=== PATIENT | female | born 1970 | race Caucasian/White ===

== ENCOUNTER 2020-08-13 16:20 | Inpatient (IN) ==
[2020-08-14] MEDS ORDERED: Ondansetron 4 MG/2 ML VIAL IVP PRN (00:56)
[2020-08-14] MEDS ORDERED: Naloxone 0.4 MG/ML INJ IVP PRN (00:56)
[2020-08-14] MEDS ORDERED: Melatonin 3 MG TABLET PO PRN (00:56)
[2020-08-14] MEDS ORDERED: D5% in Water 1,000 ML IVC PRN (01:02)
[2020-08-14] MEDS ORDERED: Dextrose Gel 15 GM/37.5 ML TUBE PO PRN ×2 (01:02)
[2020-08-14] MEDS ORDERED: *HR* Dextrose 50 % in Water (Vial) 50 ML VIAL IVP PRN (01:02)
[2020-08-14] MEDS: Acetaminophen 325 MG TABLET PO PRN (05:03)
[2020-08-14 05:40] LABS: Basophils # 0.1 K/mcL (0.0-0.2); Basophils % 0.7 %; Eosinophils # 0.2 K/mcL (0.0-0.6); Eosinophils % 3.1 %; Hematocrit 33.9 % (35.3-44.9); Immature Granulocytes % 0.1 % (0-4); Lymphocytes # 0.9 K/mcL (0.6-4.6); Lymphocytes % 12.9 %; Mean Corpuscular HGB Conc 29.5 g/dL (31.6-35.5); Mean Corpuscular Hemoglobin 29.6 pg (28.0-33.3); Mean Corpuscular Volume 100.3 fL (83.0-100.0); Mean Platelet Volume 10.7 fL (9.4-12.4); Monocytes # 0.8 K/mcL (0.0-1.3); Neutrophils # 4.9 K/mcL (1.6-8.9); Platelet Count 230 K/mcL (140-400); Red Blood Count 3.38 M/mcL (3.82-4.97); Red Cell Distribution Width 16.8 % (11.5-14.5); Segmented Neutrophils % 71.2 %; White Blood Count 6.8 K/mcL (4.3-11.1)
[2020-08-14] MEDS: *HR* Heparin 5,000 UNIT/ML VIAL SQ SCH ×3 (05:44→21:39)
[2020-08-14 05:50] LABS: INR 1.3; Prothrombin Time 14.4 Seconds (9.4-12.1)
[2020-08-14 06:10] LABS: Magnesium 1.7 mg/dL (1.6-2.6); Phosphorous 4.9 mg/dL (2.7-4.5); Troponin I 0.04 ng/mL (< 0.04)
[2020-08-14 06:11] LABS: Thyroid Stimulating Hormone 18.317 mcIU/mL (0.340-5.600)
[2020-08-14 07:45] LABS: Calcium 8.7 mg/dL (8.6-10.3); Potassium 3.7 mEq/L (3.5-5.1)
[2020-08-14] MEDS: Insulin LISPRO 300 UNITS/3 ML VIAL SUBQ SCH ×4 (08:00→21:32)
[2020-08-14] MEDS ORDERED: Perflutren Lipid Microsphere 1.3 ML in 0.9 % Sodium Chloride 8.7 ML IVP PRN (08:33)
[2020-08-14 09:16] LABS: Hepatitis B Surface Antibody < 3.10 mIU/mL
[2020-08-14] MEDS ORDERED: 0.9 % Sodium Chloride 250 ML IVC PRN (10:10)
[2020-08-14] MEDS ORDERED: *HR* Heparin 10,000 UNIT/10 ML VIAL IV PRN ×2 (10:10)
[2020-08-14] MEDS ORDERED: 0.9 % Sodium Chloride 1,000 ML PRIME SCH (10:15)
[2020-08-14] MEDS: hydrOXYzine pamoate 25 MG CAPSULE PO SCH ×3 (11:20→21:31)
[2020-08-14] MEDS: Aspirin 81 MG TAB.CHEW PO SCH (11:20)
[2020-08-14] MEDS: carvediloL 6.25 MG TABLET PO SCH ×2 (11:20→14:13)
[2020-08-14] MEDS: NIFEdipine XL (24 HR) 60 MG TAB.ER.24 PO SCH ×2 (11:21→14:12)
[2020-08-14] MEDS ORDERED: Ibuprofen 400 MG TABLET PO ONE (11:40)
[2020-08-14 13:02] LABS: Hepatitis B Surface Antigen Nonreactive (Nonreactive)
[2020-08-14] MEDS: hydrALAZINE 25 MG TABLET PO SCH (18:19)
[2020-08-14] MEDS: Mirtazapine 15 MG TABLET PO SCH (21:30)
[2020-08-14] MEDS: Insulin DETEMIR 100 UNIT/ML X5UNITS SUBQ SCH (22:08)
[2020-08-15] MEDS: Acetaminophen 325 MG TABLET PO PRN ×4 (00:07→23:24)
[2020-08-15] MEDS: *HR* Heparin 5,000 UNIT/ML VIAL SQ SCH ×3 (05:50→20:41)
[2020-08-15] MEDS ORDERED: *HR* Heparin 10,000 UNIT/10 ML VIAL IV PRN (07:34)
[2020-08-15] MEDS ORDERED: 0.9 % Sodium Chloride 250 ML IVC PRN (07:34)
[2020-08-15 07:42] LABS: Basophils # 0.1 K/mcL (0.0-0.2); Basophils % 1.1 %; Eosinophils # 0.2 K/mcL (0.0-0.6); Eosinophils % 3.6 %; Hematocrit 36.2 % (35.3-44.9); Hemoglobin 10.7 g/dL (11.5-15.4); Immature Granulocytes % 0.2 % (0-4); Lymphocytes % 18.3 %; Mean Corpuscular HGB Conc 29.6 g/dL (31.6-35.5); Mean Corpuscular Volume 101.4 fL (83.0-100.0); Mean Platelet Volume 10.2 fL (9.4-12.4); Monocytes # 0.7 K/mcL (0.0-1.3); Monocytes % 13.3 %; Neutrophils # 3.4 K/mcL (1.6-8.9); Platelet Count 210 K/mcL (140-400); Red Blood Count 3.57 M/mcL (3.82-4.97); Red Cell Distribution Width 16.1 % (11.5-14.5); Segmented Neutrophils % 63.5 %; White Blood Count 5.4 K/mcL (4.3-11.1)
[2020-08-15 07:52] LABS: Hematocrit 36.8 % (35.3-44.9); Hemoglobin 10.8 g/dL (11.5-15.4); Mean Corpuscular HGB Conc 29.3 g/dL (31.6-35.5); Mean Corpuscular Hemoglobin 30.1 pg (28.0-33.3); Mean Corpuscular Volume 102.5 fL (83.0-100.0); Mean Platelet Volume 10.4 fL (9.4-12.4); Platelet Count 217 K/mcL (140-400); Red Blood Count 3.59 M/mcL (3.82-4.97); Red Cell Distribution Width 16.1 % (11.5-14.5); White Blood Count 5.3 K/mcL (4.3-11.1)
[2020-08-15 08:02] LABS: Calcium 8.4 mg/dL (8.6-10.3); Potassium 3.7 mEq/L (3.5-5.1)
[2020-08-15] MEDS: NIFEdipine XL (24 HR) 60 MG TAB.ER.24 PO SCH (08:28)
[2020-08-15] MEDS: hydrOXYzine pamoate 25 MG CAPSULE PO SCH ×3 (08:28→20:41)
[2020-08-15] MEDS: Aspirin 81 MG TAB.CHEW PO SCH (08:28)
[2020-08-15] MEDS: hydrALAZINE 25 MG TABLET PO SCH ×3 (08:28→17:08)
[2020-08-15] MEDS: Insulin LISPRO 300 UNITS/3 ML VIAL SUBQ SCH ×4 (08:30→20:19)
[2020-08-15] MEDS: carvediloL 6.25 MG TABLET PO SCH ×2 (08:32→17:08)
[2020-08-15] MEDS: Insulin DETEMIR 100 UNIT/ML X5UNITS SUBQ SCH (20:40)
[2020-08-15] MEDS: Mirtazapine 15 MG TABLET PO SCH (20:41)
[2020-08-16 04:29] LABS: Hematocrit 38.2 % (35.3-44.9); Hemoglobin 11.3 g/dL (11.5-15.4); Mean Corpuscular HGB Conc 29.6 g/dL (31.6-35.5); Mean Corpuscular Hemoglobin 30.1 pg (28.0-33.3); Mean Corpuscular Volume 101.9 fL (83.0-100.0); Mean Platelet Volume 10.9 fL (9.4-12.4); Platelet Count 224 K/mcL (140-400); Red Blood Count 3.75 M/mcL (3.82-4.97); Red Cell Distribution Width 15.9 % (11.5-14.5); White Blood Count 6.1 K/mcL (4.3-11.1)
[2020-08-16 04:48] LABS: Calcium 8.4 mg/dL (8.6-10.3); Potassium 3.8 mEq/L (3.5-5.1)
[2020-08-16] MEDS: *HR* Heparin 5,000 UNIT/ML VIAL SQ SCH ×3 (05:40→22:00)
[2020-08-16] MEDS: carvediloL 6.25 MG TABLET PO SCH ×2 (09:43→20:27)
[2020-08-16] MEDS: NIFEdipine XL (24 HR) 30 MG TAB.ER.24 PO SCH (09:43)
[2020-08-16] MEDS: Aspirin 81 MG TAB.CHEW PO SCH (09:43)
[2020-08-16] MEDS: hydrALAZINE 25 MG TABLET PO SCH ×3 (09:44→20:27)
[2020-08-16] MEDS: hydrOXYzine pamoate 25 MG CAPSULE PO SCH ×3 (09:44→22:00)
[2020-08-16] MEDS: Insulin LISPRO 300 UNITS/3 ML VIAL SUBQ SCH ×4 (09:44→21:58)
[2020-08-16] MEDS: Acetaminophen 325 MG TABLET PO PRN (09:47)
[2020-08-16] MEDS: Insulin DETEMIR 100 UNIT/ML X5UNITS SUBQ SCH (21:59)
[2020-08-16] MEDS: Mirtazapine 15 MG TABLET PO SCH (22:00)
[2020-08-17] MEDS: Acetaminophen 325 MG TABLET PO PRN (04:29)
[2020-08-17 04:57] LABS: Hematocrit 38.2 % (35.3-44.9); Hemoglobin 11.4 g/dL (11.5-15.4); Mean Corpuscular HGB Conc 29.8 g/dL (31.6-35.5); Mean Corpuscular Hemoglobin 30.2 pg (28.0-33.3); Mean Corpuscular Volume 101.3 fL (83.0-100.0); Mean Platelet Volume 10.6 fL (9.4-12.4); Platelet Count 235 K/mcL (140-400); Red Blood Count 3.77 M/mcL (3.82-4.97); Red Cell Distribution Width 15.8 % (11.5-14.5)
[2020-08-17 05:29] LABS: Calcium 8.7 mg/dL (8.6-10.3); Potassium 4.3 mEq/L (3.5-5.1)
[2020-08-17] MEDS: *HR* Heparin 5,000 UNIT/ML VIAL SQ SCH ×2 (06:16→16:09)
[2020-08-17] MEDS: hydrOXYzine pamoate 25 MG CAPSULE PO SCH ×2 (07:53→16:09)
[2020-08-17] MEDS: Insulin LISPRO 300 UNITS/3 ML VIAL SUBQ SCH ×2 (07:53→12:21)
[2020-08-17] MEDS: Aspirin 81 MG TAB.CHEW PO SCH (07:54)
[2020-08-17] MEDS ORDERED: 0.9 % Sodium Chloride 250 ML IVC PRN (07:58)
[2020-08-17] MEDS ORDERED: *HR* Heparin 10,000 UNIT/10 ML VIAL IV PRN ×2 (07:58)
[2020-08-17] MEDS ORDERED: lisinopriL 5 MG TABLET PO SCH (09:00)
[2020-08-17] MEDS: carvediloL 6.25 MG TABLET PO SCH (09:11)
[2020-08-17] MEDS: hydrALAZINE 25 MG TABLET PO SCH ×2 (09:11→12:43)
[2020-08-17] MEDS: NIFEdipine XL (24 HR) 30 MG TAB.ER.24 PO SCH (09:11)
[2020-08-17 12:27] VITALS: BP 116/64
== END 2020-08-17 16:09 | disposition home health service (06) | DRG 194 ==
LOC: 2ANU → SUATTDRO 20:37 → 2NENU 08-14 02:30 → 2ANU 08-16 22:37
PROVIDERS: ADMIT Internal Medicine; ATTEND Internal Medicine

== ENCOUNTER 2020-12-11 12:04 | Inpatient (IN) ==
[2020-12-11] MEDS ORDERED: Dextrose Gel 15 GM/37.5 ML TUBE PO PRN ×2 (15:26)
[2020-12-11] MEDS ORDERED: *HR* Dextrose 50 % in Water (Vial) 50 ML VIAL IVP PRN (15:26)
[2020-12-11] MEDS ORDERED: Acetaminophen 325 MG TABLET PO PRN (15:26)
[2020-12-11] MEDS ORDERED: Naloxone 0.4 MG/ML INJ IVP PRN (15:26)
[2020-12-11] MEDS ORDERED: D5% in Water 1,000 ML IVC PRN (15:26)
[2020-12-11] MEDS ORDERED: Ondansetron 4 MG/2 ML VIAL IVP PRN (15:26)
[2020-12-11] MEDS ORDERED: Perflutren Lipid Microsphere 1.3 ML in 0.9 % Sodium Chloride 8.7 ML IVP PRN (15:31)
[2020-12-11] MEDS: Insulin LISPRO 300 UNITS/3 ML VIAL SUBQ SCH (15:47)
[2020-12-11] MEDS: Pantoprazole 40 MG VIAL IVP SCH (16:46)
[2020-12-11] MEDS: *HR* Heparin 5,000 UNIT/ML VIAL SQ SCH (16:47)
[2020-12-11 17:00] LABS: Calcium 9.9 mg/dL (8.6-10.3); Potassium 4.5 mEq/L (3.5-5.1); Troponin I 0.03 ng/mL (< 0.04)
[2020-12-11] MEDS: Nitroglycerin 0.4 MG TAB.SUBL SL PRN ×2 (17:18→20:44)
[2020-12-11 18:31] LABS: Hepatitis B Surface Antibody < 3.10 mIU/mL
[2020-12-11 18:41] LABS: Hepatitis B Surface Antigen Nonreactive (Nonreactive)
[2020-12-11] MEDS: Insulin DETEMIR 100 UNIT/ML X5UNITS SUBQ SCH (20:42)
[2020-12-12] MEDS: Nitroglycerin 0.4 MG TAB.SUBL SL PRN ×3 (01:24→05:42)
[2020-12-12 02:07] LABS: Calcium 9.2 mg/dL (8.6-10.3); Magnesium 1.8 mg/dL (1.6-2.6); Potassium 4.2 mEq/L (3.5-5.1)
[2020-12-12 02:10] LABS: Troponin I 0.04 ng/mL (< 0.04)
[2020-12-12] MEDS: Pantoprazole 40 MG VIAL IVP SCH ×2 (05:27→16:33)
[2020-12-12] MEDS: *HR* Heparin 5,000 UNIT/ML VIAL SQ SCH ×2 (05:27→16:33)
[2020-12-12] MEDS ORDERED: GI Cocktail 40 ML EACH PO ONE ×4 (05:46→22:03)
[2020-12-12] MEDS ORDERED: 0.9 % Sodium Chloride 250 ML IVC PRN (07:37)
[2020-12-12] MEDS ORDERED: *HR* Heparin 10,000 UNIT/10 ML VIAL IV PRN (07:37)
[2020-12-12] MEDS ORDERED: 0.9 % Sodium Chloride 1,000 ML PRIME SCH (07:45)
[2020-12-12] MEDS: Insulin LISPRO 300 UNITS/3 ML VIAL SUBQ SCH ×3 (08:10→16:18)
[2020-12-12] MEDS: Calcium Acetate 667 MG CAPSULE PO SCH ×3 (08:14→16:33)
[2020-12-12] MEDS: Aspirin 81 MG TAB.CHEW PO SCH (08:14)
[2020-12-12] MEDS ORDERED: Calcium Acetate 667 MG CAPSULE PO PRN (09:00)
[2020-12-12 09:42] LABS: Basophils % 0.3 %; Eosinophils # 0.1 K/mcL (0.0-0.6); Eosinophils % 0.9 %; Hematocrit 36.6 % (35.3-44.9); Hemoglobin 11.6 g/dL (11.5-15.4); Immature Granulocytes % 0.3 % (0-4); Lymphocytes % 7.6 %; Mean Corpuscular HGB Conc 31.7 g/dL (31.6-35.5); Mean Corpuscular Hemoglobin 31.4 pg (28.0-33.3); Mean Corpuscular Volume 99.2 fL (83.0-100.0); Mean Platelet Volume 10.4 fL (9.4-12.4); Monocytes % 7.5 %; Neutrophils # 10.5 K/mcL (1.6-8.9); Platelet Count 236 K/mcL (140-400); Red Blood Count 3.69 M/mcL (3.82-4.97); Red Cell Distribution Width 15.2 % (11.5-14.5); Segmented Neutrophils % 83.4 %; White Blood Count 12.6 K/mcL (4.3-11.1)
[2020-12-12] MEDS: lisinopriL 5 MG TABLET PO SCH (10:44)
[2020-12-12] MEDS: hydrALAZINE 25 MG TABLET PO SCH ×3 (10:44→20:08)
[2020-12-12] MEDS: carvediloL 6.25 MG TABLET PO SCH ×2 (10:44→16:32)
[2020-12-12] MEDS: NIFEdipine XL (24 HR) 30 MG TAB.ER.24 PO SCH (10:44)
[2020-12-12] MEDS: Mirtazapine 15 MG TABLET PO SCH (20:06)
[2020-12-12] MEDS: Insulin DETEMIR 100 UNIT/ML X5UNITS SUBQ SCH (21:27)
[2020-12-12] MEDS: Morphine Sulfate 2 MG/ML SYRINGE IVP PRN (22:19)
[2020-12-13 01:52] LABS: Basophils # 0.1 K/mcL (0.0-0.2); Basophils % 0.4 %; Eosinophils # 0.1 K/mcL (0.0-0.6); Eosinophils % 0.8 %; Hematocrit 38.8 % (35.3-44.9); Hemoglobin 12.1 g/dL (11.5-15.4); Immature Granulocytes % 0.4 % (0-4); Lymphocytes # 1.7 K/mcL (0.6-4.6); Lymphocytes % 14.8 %; Mean Corpuscular HGB Conc 31.2 g/dL (31.6-35.5); Mean Corpuscular Hemoglobin 31.3 pg (28.0-33.3); Mean Corpuscular Volume 100.5 fL (83.0-100.0); Mean Platelet Volume 10.6 fL (9.4-12.4); Monocytes # 0.8 K/mcL (0.0-1.3); Monocytes % 7.4 %; Neutrophils # 8.5 K/mcL (1.6-8.9); Platelet Count 221 K/mcL (140-400); Red Blood Count 3.86 M/mcL (3.82-4.97); Red Cell Distribution Width 15.3 % (11.5-14.5); Segmented Neutrophils % 76.2 %; White Blood Count 11.2 K/mcL (4.3-11.1)
[2020-12-13 02:10] LABS: Calcium 8.6 mg/dL (8.6-10.3); Potassium 4.2 mEq/L (3.5-5.1)
[2020-12-13] MEDS: Pantoprazole 40 MG VIAL IVP SCH ×2 (06:04→16:39)
[2020-12-13] MEDS: *HR* Heparin 5,000 UNIT/ML VIAL SQ SCH (06:04)
[2020-12-13] MEDS ORDERED: Regadenoson 0.4 MG/5 ML SYRINGE IVP ONE (07:09)
[2020-12-13] MEDS: Insulin LISPRO 300 UNITS/3 ML VIAL SUBQ SCH ×3 (09:59→16:39)
[2020-12-13] MEDS: Calcium Acetate 667 MG CAPSULE PO SCH ×3 (10:00→16:39)
[2020-12-13] MEDS: Aspirin 81 MG TAB.CHEW PO SCH (10:27)
[2020-12-13] MEDS: lisinopriL 5 MG TABLET PO SCH (10:27)
[2020-12-13] MEDS: NIFEdipine XL (24 HR) 30 MG TAB.ER.24 PO SCH (10:27)
[2020-12-13] MEDS: hydrALAZINE 25 MG TABLET PO SCH ×2 (10:28→14:35)
[2020-12-13] MEDS: carvediloL 6.25 MG TABLET PO SCH ×2 (10:30→16:36)
[2020-12-13] MEDS ORDERED: GI Cocktail 40 ML EACH PO ONE (10:56)
[2020-12-13] MEDS ORDERED: *HR* Heparin 5,000 UNIT/ML VIAL IVP PRN ×2 (10:58)
[2020-12-13] MEDS ORDERED: *HR* Heparin 5,000 UNIT/ML VIAL IVP ONE (10:58)
[2020-12-13] MEDS ORDERED: Heparin 25,000UNIT/250ML 1/2NS 25,000 UNIT/250 ML IV.SOLN IVC SCH (11:00)
[2020-12-13] MEDS ORDERED: Isosorbide MONOnitrate (24 HR) 30 MG TAB.ER.24H PO SCH (11:00)
[2020-12-13 13:52] LABS: Hematocrit 38.8 % (35.3-44.9); Mean Corpuscular HGB Conc 30.9 g/dL (31.6-35.5); Mean Corpuscular Hemoglobin 31.3 pg (28.0-33.3); Mean Corpuscular Volume 101.3 fL (83.0-100.0); Mean Platelet Volume 10.3 fL (9.4-12.4); Platelet Count 220 K/mcL (140-400); Red Blood Count 3.83 M/mcL (3.82-4.97); Red Cell Distribution Width 15.1 % (11.5-14.5)
[2020-12-13 14:01] LABS: Heparin anti-factor XA UFH 0.34 IU/mL (0.30-0.70)
[2020-12-13 14:02] LABS: INR 1.1; Prothrombin Time 12.3 Seconds (9.4-12.1)
[2020-12-13] MEDS ORDERED: 0.9 % Sodium Chloride 1,000 ML IVC ONE (17:50)
[2020-12-13] MEDS: Morphine Sulfate 2 MG/ML SYRINGE IVP PRN (18:03)
[2020-12-13] MEDS: Mirtazapine 15 MG TABLET PO SCH (21:01)
[2020-12-13] MEDS: Insulin DETEMIR 100 UNIT/ML X5UNITS SUBQ SCH (21:01)
[2020-12-14 04:44] LABS: Basophils # 0.1 K/mcL (0.0-0.2); Basophils % 0.8 %; Eosinophils # 0.1 K/mcL (0.0-0.6); Eosinophils % 1.9 %; Hematocrit 37.1 % (35.3-44.9); Hemoglobin 11.2 g/dL (11.5-15.4); Immature Granulocytes % 0.4 % (0-4); Lymphocytes # 1.6 K/mcL (0.6-4.6); Lymphocytes % 21.8 %; Mean Corpuscular HGB Conc 30.2 g/dL (31.6-35.5); Mean Corpuscular Hemoglobin 31.2 pg (28.0-33.3); Mean Corpuscular Volume 103.3 fL (83.0-100.0); Mean Platelet Volume 10.6 fL (9.4-12.4); Monocytes # 0.8 K/mcL (0.0-1.3); Monocytes % 10.3 %; Neutrophils # 4.8 K/mcL (1.6-8.9); Platelet Count 208 K/mcL (140-400); Red Blood Count 3.59 M/mcL (3.82-4.97); Red Cell Distribution Width 15.1 % (11.5-14.5); Segmented Neutrophils % 64.8 %; White Blood Count 7.4 K/mcL (4.3-11.1)
[2020-12-14 05:05] LABS: Calcium 7.8 mg/dL (8.6-10.3); Potassium 4.5 mEq/L (3.5-5.1)
[2020-12-14] MEDS: Pantoprazole 40 MG VIAL IVP SCH ×2 (06:26→17:58)
[2020-12-14] MEDS ORDERED: 0.9 % Sodium Chloride 250 ML IVC PRN (07:54)
[2020-12-14] MEDS ORDERED: *HR* Heparin 10,000 UNIT/10 ML VIAL IV PRN (07:54)
[2020-12-14] MEDS ORDERED: 0.9 % Sodium Chloride 1,000 ML PRIME SCH (08:00)
[2020-12-14] MEDS ORDERED: 0.9 % Sodium Chloride 2,000 ML ONE (08:09)
[2020-12-14] MEDS ORDERED: Heparin 1,000 UNITS/500 mL 500 ML ONE (08:09)
[2020-12-14] MEDS ORDERED: *HR* Heparin 10,000 UNIT/10 ML VIAL ONE (08:09)
[2020-12-14] MEDS ORDERED: ISOVUE-370 200 ML INFUS..BTL ONE (08:09)
[2020-12-14] MEDS ORDERED: Nitroglycerin 1,000 MCG/5 ML VIAL IV ONE (08:10)
[2020-12-14] MEDS ORDERED: *HR* FentaNYL (PF) 100 MCG/2 ML VIAL ONE (08:33)
[2020-12-14] MEDS ORDERED: *HR* Midazolam HCl 2 MG/2 ML VIAL ONE (08:33)
[2020-12-14] MEDS: Insulin LISPRO 300 UNITS/3 ML VIAL SUBQ SCH ×3 (09:05→17:58)
[2020-12-14] MEDS: Calcium Acetate 667 MG CAPSULE PO SCH ×3 (09:11→17:58)
[2020-12-14] MEDS: lisinopriL 5 MG TABLET PO SCH (09:29)
[2020-12-14] MEDS: Aspirin 81 MG TAB.CHEW PO SCH (09:29)
[2020-12-14] MEDS: carvediloL 6.25 MG TABLET PO SCH ×2 (09:29→17:58)
[2020-12-14] MEDS: NIFEdipine XL (24 HR) 30 MG TAB.ER.24 PO SCH (09:29)
[2020-12-14] MEDS: Morphine Sulfate 2 MG/ML SYRINGE IVP PRN ×2 (12:10→20:36)
[2020-12-14] MEDS: *HR* Heparin 5,000 UNIT/ML VIAL SQ SCH (17:58)
[2020-12-14] MEDS: Insulin DETEMIR 100 UNIT/ML X5UNITS SUBQ SCH (20:30)
[2020-12-14] MEDS: Ranolazine 500 MG TAB.ER.12H PO SCH (20:30)
[2020-12-14] MEDS: Mirtazapine 15 MG TABLET PO SCH (20:30)
[2020-12-15 02:24] LABS: Basophils # 0.1 K/mcL (0.0-0.2); Basophils % 0.8 %; Eosinophils # 0.1 K/mcL (0.0-0.6); Eosinophils % 1.7 %; Hematocrit 36.8 % (35.3-44.9); Hemoglobin 11.1 g/dL (11.5-15.4); Immature Granulocytes % 0.3 % (0-4); Lymphocytes # 1.2 K/mcL (0.6-4.6); Lymphocytes % 18.2 %; Mean Corpuscular HGB Conc 30.2 g/dL (31.6-35.5); Mean Corpuscular Hemoglobin 31.1 pg (28.0-33.3); Mean Corpuscular Volume 103.1 fL (83.0-100.0); Mean Platelet Volume 10.8 fL (9.4-12.4); Monocytes # 0.6 K/mcL (0.0-1.3); Monocytes % 9.6 %; Neutrophils # 4.5 K/mcL (1.6-8.9); Platelet Count 190 K/mcL (140-400); Red Blood Count 3.57 M/mcL (3.82-4.97); Red Cell Distribution Width 14.8 % (11.5-14.5); Segmented Neutrophils % 69.4 %; White Blood Count 6.5 K/mcL (4.3-11.1)
[2020-12-15 02:41] LABS: Calcium 7.7 mg/dL (8.6-10.3); Magnesium 2.2 mg/dL (1.6-2.6); Potassium 4.8 mEq/L (3.5-5.1)
[2020-12-15] MEDS: *HR* Heparin 5,000 UNIT/ML VIAL SQ SCH (05:00)
[2020-12-15] MEDS: Pantoprazole 40 MG VIAL IVP SCH (05:01)
[2020-12-15] MEDS: Morphine Sulfate 2 MG/ML SYRINGE IVP PRN ×2 (06:24→16:10)
[2020-12-15 07:04] VITALS: O2SAT 94
[2020-12-15] MEDS: Aspirin 81 MG TAB.CHEW PO SCH (07:47)
[2020-12-15] MEDS: Calcium Acetate 667 MG CAPSULE PO SCH ×2 (07:47→11:26)
[2020-12-15] MEDS: Ranolazine 500 MG TAB.ER.12H PO SCH (07:48)
[2020-12-15] MEDS: carvediloL 6.25 MG TABLET PO SCH (07:48)
[2020-12-15] MEDS: Insulin LISPRO 300 UNITS/3 ML VIAL SUBQ SCH ×3 (07:48→16:15)
[2020-12-15] MEDS: NIFEdipine XL (24 HR) 30 MG TAB.ER.24 PO SCH (07:48)
[2020-12-15] MEDS: lisinopriL 5 MG TABLET PO SCH (07:48)
[2020-12-15] MEDS ORDERED: 0.9 % Sodium Chloride 250 ML IVC PRN (10:54)
[2020-12-15] MEDS ORDERED: *HR* Heparin 10,000 UNIT/10 ML VIAL IV PRN (10:54)
[2020-12-15] MEDS ORDERED: 0.9 % Sodium Chloride 1,000 ML PRIME SCH (11:00)
[2020-12-15] MEDS ORDERED: Albumin 25% 25gram/100mL 25 GM/100 ML IV.SOLN ONE (12:07)
[2020-12-15] MEDS ORDERED: Albumin 25% 25gram/100mL 25 GM/100 ML IV.SOLN IVPB PRN (12:10)
[2020-12-15 15:39] VITALS: BP 103/61; PULSE 74; TEMP 98.4
[2020-12-15] MEDS ORDERED: Sucralfate 1 GM TABLET PO SCH (16:30)
== END 2020-12-15 17:45 | disposition home or self-care (01) | DRG 191 ==
LOC: 2ANU
PROVIDERS: ADMIT Pharmacist; ATTEND Pharmacist

== ENCOUNTER 2021-04-11 19:06 | Inpatient (IN) ==
[2021-04-11] MEDS ORDERED: Naloxone 0.4 MG/ML INJ IVP PRN (22:11)
[2021-04-11] MEDS ORDERED: Ondansetron 4 MG/2 ML VIAL IVP PRN (22:11)
[2021-04-11] MEDS: Melatonin 3 MG TABLET PO PRN (22:47)
[2021-04-11] MEDS ORDERED: D5% in Water 1,000 ML IVC PRN (22:59)
[2021-04-11] MEDS ORDERED: *HR* Dextrose 50 % in Water (Syg) 50 ML SYRINGE IVP PRN (22:59)
[2021-04-11] MEDS ORDERED: Dextrose Gel 15 GM/37.5 ML TUBE PO PRN (22:59)
[2021-04-11 23:49] LABS: Potassium 4.4 mEq/L (3.5-5.1)
[2021-04-11 23:52] LABS: Troponin I 0.05 ng/mL (< 0.04)
[2021-04-12] MEDS: Acetaminophen 325 MG TABLET PO PRN ×3 (00:10→20:37)
[2021-04-12] MEDS: Insulin LISPRO 300 UNITS/3 ML VIAL SUBQ SCH ×5 (00:43→21:34)
[2021-04-12] MEDS: Azithromycin 500 MG in D5% in Water 250 ML IVPB SCH (00:50)
[2021-04-12 01:17] LABS: Basophils % 0.2 %; Eosinophils % 0.2 %; Hemoglobin 8.9 g/dL (11.5-15.4); Immature Granulocytes % 0.5 % (0-4); Lymphocytes # 0.4 K/mcL (0.6-4.6); Lymphocytes % 2.9 %; Mean Corpuscular HGB Conc 31.8 g/dL (31.6-35.5); Mean Corpuscular Hemoglobin 31.9 pg (28.0-33.3); Mean Corpuscular Volume 100.4 fL (83.0-100.0); Mean Platelet Volume 10.8 fL (9.4-12.4); Monocytes # 0.9 K/mcL (0.0-1.3); Monocytes % 7.1 %; Neutrophils # 11.5 K/mcL (1.6-8.9); Platelet Count 157 K/mcL (140-400); Red Blood Count 2.79 M/mcL (3.82-4.97); Red Cell Distribution Width 15.1 % (11.5-14.5); Segmented Neutrophils % 89.1 %; White Blood Count 12.9 K/mcL (4.3-11.1)
[2021-04-12 01:38] LABS: Albumin 3.4 g/dL (3.5-5.7); Albumin/Globulin Ratio 1.3 (1.1-2.2); Bilirubin,Total 0.6 mg/dL (0.3-1.0); Calcium 8.1 mg/dL (8.6-10.3); Globulin 2.7 g/dL (2.4-3.5); Magnesium 1.4 mg/dL (1.6-2.6); Phosphorous 5.2 mg/dL (2.7-4.5); Potassium 4.6 mEq/L (3.5-5.1); Total Protein 6.1 g/dL (6.4-8.9)
[2021-04-12 01:42] LABS: Troponin I 0.05 ng/mL (< 0.04)
[2021-04-12 02:15] LABS: Estimated Average Glucose 214 mg/dl; Hemoglobin A1C 9.1 %
[2021-04-12] MEDS ORDERED: *HR* Heparin 5,000 UNIT/ML VIAL SQ SCH (06:00)
[2021-04-12] MEDS ORDERED: 0.9 % Sodium Chloride 250 ML IVC PRN (07:13)
[2021-04-12] MEDS ORDERED: 0.9 % Sodium Chloride 1,000 ML PRIME SCH (07:15)
[2021-04-12] MEDS ORDERED: Metoclopramide 10 MG/2 ML VIAL IVP PRN ×2 (07:30→09:41)
[2021-04-12] MEDS ORDERED: cefTRIAXone 1,000 MG in Water for inj. (sterile) 10 ML IVP SCH (09:00)
[2021-04-12] MEDS ORDERED: Ondansetron 4 MG/2 ML VIAL IVP PRN (09:43)
[2021-04-12 09:51] LABS: Hepatitis B Surface Antibody 6.07 mIU/mL
[2021-04-12] MEDS ORDERED: Vancomycin 1 EACH in 0.9 % Sodium Chloride 250 ML IVPB PRN (10:00)
[2021-04-12 10:02] LABS: Hepatitis B Surface Antigen Nonreactive (Nonreactive)
[2021-04-12] MEDS: *HR* Heparin 5,000 UNIT/ML VIAL SQ SCH ×2 (13:51→20:38)
[2021-04-12] MEDS: Sucralfate 1 GM TABLET PO SCH ×2 (16:58→20:37)
[2021-04-12] MEDS: Calcium Acetate 667 MG CAPSULE PO SCH (18:37)
[2021-04-12] MEDS: Pantoprazole 40 MG VIAL IVP SCH (18:38)
[2021-04-12] MEDS ORDERED: Vancomycin 500 MG in 0.9 % Sodium Chloride Mini Bag 100 ML IVPB ONE (20:00)
[2021-04-12] MEDS: Mirtazapine 15 MG TABLET PO SCH (20:37)
[2021-04-12] MEDS: Ranolazine 500 MG TAB.ER.12H PO SCH (20:37)
[2021-04-12] MEDS: Gabapentin 300 MG CAPSULE PO SCH (20:37)
[2021-04-12] MEDS ORDERED: Insulin DETEMIR 100 UNIT/ML X5UNITS SUBQ SCH (21:00)
[2021-04-12] MEDS ORDERED: Doxycycline 100 MG CAPSULE PO SCH (21:00)
[2021-04-13] MEDS: Azithromycin 500 MG in D5% in Water 250 ML IVPB SCH ×2 (01:19→11:13)
[2021-04-13 02:33] LABS: Basophils % 0.3 %; Eosinophils # 0.1 K/mcL (0.0-0.6); Eosinophils % 0.9 %; Hematocrit 29.7 % (35.3-44.9); Hemoglobin 9.5 g/dL (11.5-15.4); Immature Granulocytes % 0.6 % (0-4); Lymphocytes # 0.5 K/mcL (0.6-4.6); Lymphocytes % 4.4 %; Mean Corpuscular Hemoglobin 31.8 pg (28.0-33.3); Mean Corpuscular Volume 99.3 fL (83.0-100.0); Mean Platelet Volume 11.3 fL (9.4-12.4); Monocytes # 1.4 K/mcL (0.0-1.3); Monocytes % 11.7 %; Neutrophils # 9.9 K/mcL (1.6-8.9); Platelet Count 157 K/mcL (140-400); Red Blood Count 2.99 M/mcL (3.82-4.97); Red Cell Distribution Width 14.8 % (11.5-14.5); Segmented Neutrophils % 82.1 %; White Blood Count 12.1 K/mcL (4.3-11.1)
[2021-04-13 02:52] LABS: % Iron Saturation 7 % (15-50); Iron 18 mcg/dL (50-170); Transferrin 174 mg/dL (203-362)
[2021-04-13 03:35] LABS: Calcium 8.3 mg/dL (8.6-10.3); Potassium 3.6 mEq/L (3.5-5.1)
[2021-04-13] MEDS: Dextrose Gel 15 GM/37.5 ML TUBE PO PRN ×2 (05:20→08:03)
[2021-04-13] MEDS: Pantoprazole 40 MG VIAL IVP SCH (06:10)
[2021-04-13] MEDS: *HR* Heparin 5,000 UNIT/ML VIAL SQ SCH ×3 (06:13→21:26)
[2021-04-13 06:35] LABS: Acinetobacter baumannii by PCR Not Detected (Not Detect); Candida albicans by PCR Not Detected (Not Detect); Candida glabrata by PCR Not Detected (Not Detect); Candida krusei by PCR Not Detected (Not Detect); Candida parapsilosis by PCR Not Detected (Not Detect); Candida tropicalis by PCR Not Detected (Not Detect); Enterobacter cloacae Cmplx PCR Not Detected (Not Detect); Enterobacteriaceae by PCR Not Detected (Not Detect); Enterococcus by PCR Not Detected (Not Detect); Escherichia coli by PCR Not Detected (Not Detect); Klebsiella oxytoca by PCR Not Detected (Not Detect); Klebsiella pneumoniae by PCR Not Detected (Not Detect); Proteus by PCR Not Detected (Not Detect); Pseudomonas aeruginosa by PCR Not Detected (Not Detect); Serratia marcescens by PCR Not Detected (Not Detect); Staphylococcus aureus by PCR DETECTED (Not Detect); Streptococcus agalactiae(B)PCR Not Detected (Not Detect); Streptococcus by PCR Not Detected (Not Detect); Streptococcus pneumoniae PCR Not Detected (Not Detect); Streptococcus pyogenes (A) PCR Not Detected (Not Detect); mecA Methicillin-Resist Gene DETECTED (Not Detect)
[2021-04-13] MEDS: Ranolazine 500 MG TAB.ER.12H PO SCH ×2 (08:04→20:01)
[2021-04-13] MEDS: Aspirin 81 MG TAB.CHEW PO SCH (08:04)
[2021-04-13] MEDS: Sucralfate 1 GM TABLET PO SCH ×4 (08:05→20:03)
[2021-04-13] MEDS: Folic Acid 1 MG TABLET PO SCH (08:05)
[2021-04-13] MEDS: Cholecalciferol (D-3) 1,000 UNIT (25MCG) TABLET PO SCH (08:05)
[2021-04-13] MEDS: Insulin LISPRO 300 UNITS/3 ML VIAL SUBQ SCH ×4 (08:10→20:00)
[2021-04-13] MEDS: Calcium Acetate 667 MG CAPSULE PO SCH ×3 (08:19→17:42)
[2021-04-13] MEDS ORDERED: Calcium Acetate 667 MG CAPSULE PO SCH (09:00)
[2021-04-13] MEDS ORDERED: Vancomycin 500 MG in 0.9 % Sodium Chloride Mini Bag 100 ML IVPB ONE (09:00)
[2021-04-13] MEDS ORDERED: Perflutren Lipid Microsphere 1.3 ML in 0.9 % Sodium Chloride 8.7 ML IVP PRN (10:04)
[2021-04-13] MEDS: Insulin DETEMIR 100 UNIT/ML X5UNITS SUBQ SCH (20:00)
[2021-04-13] MEDS: Mirtazapine 15 MG TABLET PO SCH (20:01)
[2021-04-13] MEDS: Gabapentin 300 MG CAPSULE PO SCH (20:01)
[2021-04-14] MEDS: *HR* Heparin 5,000 UNIT/ML VIAL SQ SCH ×3 (05:22→21:02)
[2021-04-14 05:38] LABS: Basophils % 0.4 %; Eosinophils # 0.3 K/mcL (0.0-0.6); Eosinophils % 2.9 %; Hematocrit 28.6 % (35.3-44.9); Hemoglobin 9.3 g/dL (11.5-15.4); Immature Granulocytes % 0.7 % (0-4); Lymphocytes # 0.8 K/mcL (0.6-4.6); Lymphocytes % 8.5 %; Mean Corpuscular HGB Conc 32.5 g/dL (31.6-35.5); Mean Corpuscular Hemoglobin 32.7 pg (28.0-33.3); Mean Corpuscular Volume 100.7 fL (83.0-100.0); Mean Platelet Volume 11.8 fL (9.4-12.4); Monocytes # 1.7 K/mcL (0.0-1.3); Monocytes % 18.4 %; Neutrophils # 6.4 K/mcL (1.6-8.9); Platelet Count 161 K/mcL (140-400); Red Blood Count 2.84 M/mcL (3.82-4.97); Red Cell Distribution Width 14.8 % (11.5-14.5); Segmented Neutrophils % 69.1 %; White Blood Count 9.2 K/mcL (4.3-11.1)
[2021-04-14 05:53] LABS: Calcium 8.3 mg/dL (8.6-10.3); Potassium 3.6 mEq/L (3.5-5.1)
[2021-04-14] MEDS: Calcium Acetate 667 MG CAPSULE PO SCH ×3 (08:08→16:31)
[2021-04-14] MEDS: Cholecalciferol (D-3) 1,000 UNIT (25MCG) TABLET PO SCH (08:08)
[2021-04-14] MEDS: Acetaminophen 325 MG TABLET PO PRN ×2 (08:08→21:06)
[2021-04-14] MEDS: Aspirin 81 MG TAB.CHEW PO SCH (08:08)
[2021-04-14] MEDS: Sucralfate 1 GM TABLET PO SCH ×4 (08:08→21:02)
[2021-04-14] MEDS: Folic Acid 1 MG TABLET PO SCH (08:09)
[2021-04-14] MEDS: Insulin LISPRO 300 UNITS/3 ML VIAL SUBQ SCH ×4 (08:09→21:00)
[2021-04-14] MEDS: Ranolazine 500 MG TAB.ER.12H PO SCH ×2 (08:09→21:02)
[2021-04-14] MEDS ORDERED: 0.9 % Sodium Chloride 250 ML IVC PRN (08:32)
[2021-04-14] MEDS: carvediloL 25 MG TABLET PO SCH ×2 (12:23→21:00)
[2021-04-14] MEDS: Insulin DETEMIR 100 UNIT/ML X5UNITS SUBQ SCH (21:01)
[2021-04-14] MEDS: Melatonin 3 MG TABLET PO PRN (21:02)
[2021-04-14] MEDS: Mirtazapine 15 MG TABLET PO SCH (21:02)
[2021-04-14] MEDS: Gabapentin 300 MG CAPSULE PO SCH (21:02)
[2021-04-15 05:34] LABS: Basophils # 0.1 K/mcL (0.0-0.2); Basophils % 0.8 %; Eosinophils # 0.3 K/mcL (0.0-0.6); Eosinophils % 4.3 %; Hematocrit 29.2 % (35.3-44.9); Hemoglobin 9.3 g/dL (11.5-15.4); Immature Granulocytes % 1.1 % (0-4); Lymphocytes # 1.2 K/mcL (0.6-4.6); Lymphocytes % 19.4 %; Mean Corpuscular HGB Conc 31.8 g/dL (31.6-35.5); Mean Corpuscular Hemoglobin 32.6 pg (28.0-33.3); Mean Corpuscular Volume 102.5 fL (83.0-100.0); Mean Platelet Volume 11.4 fL (9.4-12.4); Monocytes # 1.1 K/mcL (0.0-1.3); Monocytes % 17.3 %; Neutrophils # 3.6 K/mcL (1.6-8.9); Platelet Count 182 K/mcL (140-400); Red Blood Count 2.85 M/mcL (3.82-4.97); Red Cell Distribution Width 14.6 % (11.5-14.5); Segmented Neutrophils % 57.1 %; White Blood Count 6.3 K/mcL (4.3-11.1)
[2021-04-15 05:44] LABS: Calcium 8.3 mg/dL (8.6-10.3); Potassium 3.8 mEq/L (3.5-5.1)
[2021-04-15] MEDS: *HR* Heparin 5,000 UNIT/ML VIAL SQ SCH ×3 (05:48→21:15)
[2021-04-15] MEDS: Ranolazine 500 MG TAB.ER.12H PO SCH ×2 (09:00→21:17)
[2021-04-15] MEDS: Cholecalciferol (D-3) 1,000 UNIT (25MCG) TABLET PO SCH (09:00)
[2021-04-15] MEDS: Aspirin 81 MG TAB.CHEW PO SCH (09:00)
[2021-04-15] MEDS: Calcium Acetate 667 MG CAPSULE PO SCH ×3 (09:01→17:13)
[2021-04-15] MEDS: Sucralfate 1 GM TABLET PO SCH ×4 (09:01→21:17)
[2021-04-15] MEDS: Insulin LISPRO 300 UNITS/3 ML VIAL SUBQ SCH ×4 (09:01→21:15)
[2021-04-15] MEDS: Folic Acid 1 MG TABLET PO SCH (09:01)
[2021-04-15] MEDS: carvediloL 25 MG TABLET PO SCH ×2 (09:05→17:12)
[2021-04-15] MEDS: hydrALAZINE 25 MG TABLET PO SCH ×2 (14:36→21:17)
[2021-04-15] MEDS: Mirtazapine 15 MG TABLET PO SCH (21:16)
[2021-04-15] MEDS: Insulin DETEMIR 100 UNIT/ML X5UNITS SUBQ SCH (21:16)
[2021-04-15] MEDS: Gabapentin 300 MG CAPSULE PO SCH (21:17)
[2021-04-16 05:10] LABS: Basophils # 0.1 K/mcL (0.0-0.2); Basophils % 0.7 %; Eosinophils # 0.3 K/mcL (0.0-0.6); Eosinophils % 3.6 %; Hematocrit 29.9 % (35.3-44.9); Hemoglobin 9.5 g/dL (11.5-15.4); Immature Granulocytes % 1.6 % (0-4); Lymphocytes # 1.4 K/mcL (0.6-4.6); Lymphocytes % 18.7 %; Mean Corpuscular HGB Conc 31.8 g/dL (31.6-35.5); Mean Corpuscular Hemoglobin 32.9 pg (28.0-33.3); Mean Corpuscular Volume 103.5 fL (83.0-100.0); Monocytes # 1.1 K/mcL (0.0-1.3); Monocytes % 14.7 %; Neutrophils # 4.5 K/mcL (1.6-8.9); Platelet Count 226 K/mcL (140-400); Red Blood Count 2.89 M/mcL (3.82-4.97); Red Cell Distribution Width 14.6 % (11.5-14.5); Segmented Neutrophils % 60.7 %; White Blood Count 7.5 K/mcL (4.3-11.1)
[2021-04-16 05:17] LABS: Calcium 8.4 mg/dL (8.6-10.3); Potassium 4.2 mEq/L (3.5-5.1)
[2021-04-16] MEDS: *HR* Heparin 5,000 UNIT/ML VIAL SQ SCH ×3 (05:38→19:48)
[2021-04-16] MEDS ORDERED: 0.9 % Sodium Chloride 250 ML IVC PRN (06:57)
[2021-04-16] MEDS: Folic Acid 1 MG TABLET PO SCH (08:47)
[2021-04-16] MEDS: Aspirin 81 MG TAB.CHEW PO SCH (08:47)
[2021-04-16] MEDS: Sucralfate 1 GM TABLET PO SCH ×4 (08:47→19:48)
[2021-04-16] MEDS: Cholecalciferol (D-3) 1,000 UNIT (25MCG) TABLET PO SCH (08:47)
[2021-04-16] MEDS: NIFEdipine XL (24 HR) 30 MG TAB.ER.24 PO SCH (08:47)
[2021-04-16] MEDS: carvediloL 25 MG TABLET PO SCH ×2 (08:47→16:44)
[2021-04-16] MEDS: hydrALAZINE 25 MG TABLET PO SCH ×3 (08:47→19:48)
[2021-04-16] MEDS: Calcium Acetate 667 MG CAPSULE PO SCH ×3 (08:47→16:21)
[2021-04-16] MEDS: Insulin LISPRO 300 UNITS/3 ML VIAL SUBQ SCH ×4 (08:48→19:46)
[2021-04-16] MEDS: Ranolazine 500 MG TAB.ER.12H PO SCH ×2 (08:48→19:47)
[2021-04-16] MEDS ORDERED: *HR* Heparin 5,000 UNIT/ML VIAL ONE (10:39)
[2021-04-16] MEDS: Insulin DETEMIR 100 UNIT/ML X5UNITS SUBQ SCH ×2 (14:16→19:45)
[2021-04-16] MEDS: Gabapentin 300 MG CAPSULE PO SCH (19:47)
[2021-04-16] MEDS: Mirtazapine 15 MG TABLET PO SCH (19:47)
[2021-04-16] MEDS: Melatonin 3 MG TABLET PO PRN (19:48)
[2021-04-17] MEDS: *HR* Heparin 5,000 UNIT/ML VIAL SQ SCH ×3 (06:03→21:04)
[2021-04-17] MEDS: Insulin DETEMIR 100 UNIT/ML X5UNITS SUBQ SCH ×2 (08:32→21:04)
[2021-04-17] MEDS: Cholecalciferol (D-3) 1,000 UNIT (25MCG) TABLET PO SCH (08:33)
[2021-04-17] MEDS: Aspirin 81 MG TAB.CHEW PO SCH (08:33)
[2021-04-17] MEDS: Ranolazine 500 MG TAB.ER.12H PO SCH ×2 (08:33→21:03)
[2021-04-17] MEDS: NIFEdipine XL (24 HR) 30 MG TAB.ER.24 PO SCH (08:33)
[2021-04-17] MEDS: carvediloL 25 MG TABLET PO SCH ×2 (08:33→17:16)
[2021-04-17] MEDS: Calcium Acetate 667 MG CAPSULE PO SCH ×3 (08:33→17:16)
[2021-04-17] MEDS: Sucralfate 1 GM TABLET PO SCH ×4 (08:33→21:03)
[2021-04-17] MEDS: Folic Acid 1 MG TABLET PO SCH (08:33)
[2021-04-17] MEDS: hydrALAZINE 25 MG TABLET PO SCH ×3 (08:33→21:03)
[2021-04-17] MEDS: Insulin LISPRO 300 UNITS/3 ML VIAL SUBQ SCH ×4 (08:34→21:04)
[2021-04-17 09:23] LABS: Basophils # 0.1 K/mcL (0.0-0.2); Basophils % 0.9 %; Eosinophils # 0.3 K/mcL (0.0-0.6); Eosinophils % 2.7 %; Hematocrit 30.1 % (35.3-44.9); Hemoglobin 9.6 g/dL (11.5-15.4); Immature Granulocytes % 2.3 % (0-4); Lymphocytes # 1.2 K/mcL (0.6-4.6); Lymphocytes % 13.4 %; Mean Corpuscular HGB Conc 31.9 g/dL (31.6-35.5); Mean Corpuscular Hemoglobin 32.9 pg (28.0-33.3); Mean Corpuscular Volume 103.1 fL (83.0-100.0); Mean Platelet Volume 10.3 fL (9.4-12.4); Monocytes # 1.3 K/mcL (0.0-1.3); Monocytes % 13.8 %; Neutrophils # 6.2 K/mcL (1.6-8.9); Platelet Count 285 K/mcL (140-400); Red Blood Count 2.92 M/mcL (3.82-4.97); Red Cell Distribution Width 14.7 % (11.5-14.5); Segmented Neutrophils % 66.9 %; White Blood Count 9.2 K/mcL (4.3-11.1)
[2021-04-17 09:30] LABS: Calcium 8.7 mg/dL (8.6-10.3); Potassium 4.3 mEq/L (3.5-5.1)
[2021-04-17 10:14] LABS: Amorphous Sediment,Urine Few per hpf (None-Few); Bacteria,Urine Few per hpf (None-Few); Bilirubin,Urine Negative (Negative); Blood,Urine Small (Negative); Clarity,Urine Turbid (Clear); Color,Urine Yellow (Yellow); Glucose,Urine (UA) >=1000 mg/dL (Normal); Granular Casts,Urine Many per lpf (None Seen); Hyaline Casts,Urine Moderate per lpf (None Seen); Ketones,Urine Negative (Negative); Leukocyte Esterase,Urine Small (Negative); Mucus,Urine Few per lpf (None-Few); Nitrite,Urine Negative (Negative); Protein,Urine >=600 mg/dL (Neg-Trace); Specific Gravity,Urine 1.019 (1.010-1.025); Squamous Epithelial Cell,Urine Moderate per hpf (None-Few); Urobilinogen,Urine Normal (Normal); WBC,Urine 30-50 per hpf (0-3)
[2021-04-17] MEDS: Gabapentin 300 MG CAPSULE PO SCH (21:03)
[2021-04-17] MEDS: Mirtazapine 15 MG TABLET PO SCH (21:03)
[2021-04-18] MEDS: Acetaminophen 325 MG TABLET PO PRN (00:52)
[2021-04-18 04:25] LABS: Basophils # 0.1 K/mcL (0.0-0.2); Basophils % 0.7 %; Eosinophils # 0.2 K/mcL (0.0-0.6); Eosinophils % 2.5 %; Hematocrit 28.5 % (35.3-44.9); Hemoglobin 8.7 g/dL (11.5-15.4); Immature Granulocytes % 2.7 % (0-4); Lymphocytes # 1.2 K/mcL (0.6-4.6); Lymphocytes % 14.1 %; Mean Corpuscular HGB Conc 30.5 g/dL (31.6-35.5); Mean Corpuscular Hemoglobin 31.6 pg (28.0-33.3); Mean Corpuscular Volume 103.6 fL (83.0-100.0); Mean Platelet Volume 10.6 fL (9.4-12.4); Monocytes % 11.3 %; Platelet Count 270 K/mcL (140-400); Red Blood Count 2.75 M/mcL (3.82-4.97); Red Cell Distribution Width 14.6 % (11.5-14.5); Segmented Neutrophils % 68.7 %; White Blood Count 8.8 K/mcL (4.3-11.1)
[2021-04-18 04:42] LABS: Calcium 8.3 mg/dL (8.6-10.3)
[2021-04-18] MEDS: *HR* Heparin 5,000 UNIT/ML VIAL SQ SCH ×3 (06:32→20:57)
[2021-04-18] MEDS: Cholecalciferol (D-3) 1,000 UNIT (25MCG) TABLET PO SCH (07:59)
[2021-04-18] MEDS: NIFEdipine XL (24 HR) 30 MG TAB.ER.24 PO SCH (07:59)
[2021-04-18] MEDS: Insulin DETEMIR 100 UNIT/ML X5UNITS SUBQ SCH ×2 (08:00→20:56)
[2021-04-18] MEDS: Calcium Acetate 667 MG CAPSULE PO SCH ×3 (08:00→17:06)
[2021-04-18] MEDS: hydrALAZINE 25 MG TABLET PO SCH ×3 (08:00→20:57)
[2021-04-18] MEDS: Folic Acid 1 MG TABLET PO SCH (08:00)
[2021-04-18] MEDS: carvediloL 25 MG TABLET PO SCH (08:00)
[2021-04-18] MEDS: Ranolazine 500 MG TAB.ER.12H PO SCH ×2 (08:00→20:56)
[2021-04-18] MEDS: Aspirin 81 MG TAB.CHEW PO SCH (08:00)
[2021-04-18] MEDS: Insulin LISPRO 300 UNITS/3 ML VIAL SUBQ SCH ×4 (08:00→20:57)
[2021-04-18] MEDS: Sucralfate 1 GM TABLET PO SCH ×4 (08:00→20:56)
[2021-04-18] MEDS: Gabapentin 300 MG CAPSULE PO SCH (20:56)
[2021-04-18] MEDS: Mirtazapine 15 MG TABLET PO SCH (20:57)
[2021-04-19] MEDS: Nitroglycerin 0.4 MG TAB.SUBL SL PRN (02:40)
[2021-04-19] MEDS ORDERED: Morphine Sulfate 2 MG/ML SYRINGE IVP ONE (03:15)
[2021-04-19 04:37] LABS: Basophils # 0.1 K/mcL (0.0-0.2); Basophils % 0.8 %; Eosinophils # 0.2 K/mcL (0.0-0.6); Eosinophils % 2.6 %; Hematocrit 28.8 % (35.3-44.9); Hemoglobin 8.9 g/dL (11.5-15.4); Immature Granulocytes % 2.9 % (0-4); Lymphocytes % 11.9 %; Mean Corpuscular HGB Conc 30.9 g/dL (31.6-35.5); Mean Corpuscular Hemoglobin 31.6 pg (28.0-33.3); Mean Corpuscular Volume 102.1 fL (83.0-100.0); Mean Platelet Volume 10.3 fL (9.4-12.4); Monocytes # 0.9 K/mcL (0.0-1.3); Monocytes % 11.3 %; Neutrophils # 5.9 K/mcL (1.6-8.9); Platelet Count 306 K/mcL (140-400); Red Blood Count 2.82 M/mcL (3.82-4.97); Red Cell Distribution Width 14.6 % (11.5-14.5); Segmented Neutrophils % 70.5 %; White Blood Count 8.3 K/mcL (4.3-11.1)
[2021-04-19 04:53] LABS: Calcium 8.9 mg/dL (8.6-10.3); Iron 49 mcg/dL (50-170); Potassium 5.3 mEq/L (3.5-5.1)
[2021-04-19] MEDS: *HR* Heparin 5,000 UNIT/ML VIAL SQ SCH ×2 (05:49→14:39)
[2021-04-19] MEDS: Folic Acid 1 MG TABLET PO SCH (07:49)
[2021-04-19] MEDS: hydrALAZINE 25 MG TABLET PO SCH ×3 (07:49→20:51)
[2021-04-19] MEDS: Sucralfate 1 GM TABLET PO SCH ×4 (07:49→20:52)
[2021-04-19] MEDS: Cholecalciferol (D-3) 1,000 UNIT (25MCG) TABLET PO SCH (07:49)
[2021-04-19] MEDS: Aspirin 81 MG TAB.CHEW PO SCH (07:49)
[2021-04-19] MEDS: NIFEdipine XL (24 HR) 30 MG TAB.ER.24 PO SCH (07:49)
[2021-04-19] MEDS: Calcium Acetate 667 MG CAPSULE PO SCH ×3 (07:49→16:39)
[2021-04-19] MEDS: Ranolazine 500 MG TAB.ER.12H PO SCH ×2 (07:49→20:52)
[2021-04-19] MEDS: carvediloL 6.25 MG TABLET PO SCH ×2 (07:52→16:52)
[2021-04-19] MEDS ORDERED: 0.9 % Sodium Chloride 250 ML IVC PRN (08:15)
[2021-04-19] MEDS ORDERED: 0.9 % Sodium Chloride 1,000 ML PRIME SCH (08:15)
[2021-04-19] MEDS: Insulin DETEMIR 100 UNIT/ML X5UNITS SUBQ SCH ×2 (08:26→20:52)
[2021-04-19] MEDS ORDERED: carvediloL 6.25 MG TABLET PO SCH (09:00)
[2021-04-19] MEDS: Insulin LISPRO 300 UNITS/3 ML VIAL SUBQ SCH ×4 (09:22→20:51)
[2021-04-19] MEDS ORDERED: *HR* FentaNYL (PF) 100 MCG/2 ML VIAL IVP PRN (12:52)
[2021-04-19] MEDS ORDERED: Lidocaine Viscous Oral Soln 15 ML SOLUTION MM PRN (12:52)
[2021-04-19] MEDS ORDERED: *HR* Midazolam HCl 5 MG/5 ML VIAL IVP PRN (12:53)
[2021-04-19] MEDS ORDERED: 0.9 % Sodium Chloride 500 ML IVC ONE (12:53)
[2021-04-19] MEDS ORDERED: *HR* Heparin 5,000 UNIT/ML VIAL IVP PRN ×2 (15:12)
[2021-04-19] MEDS ORDERED: *HR* Heparin 5,000 UNIT/ML VIAL IVP ONE (15:12)
[2021-04-19 16:35] LABS: INR 1.1; Prothrombin Time 12.1 Seconds (9.4-12.1)
[2021-04-19 16:38] LABS: Heparin anti-factor XA UFH < 0.04 IU/mL (0.30-0.70)
[2021-04-19] MEDS: Heparin 25,000UNIT/250ML 1/2NS 25,000 UNIT/250 ML IV.SOLN IVC SCH (17:58)
[2021-04-19] MEDS: Mirtazapine 15 MG TABLET PO SCH (20:52)
[2021-04-19] MEDS: Gabapentin 300 MG CAPSULE PO SCH (20:52)
[2021-04-20 04:40] LABS: Basophils # 0.1 K/mcL (0.0-0.2); Basophils % 0.7 %; Eosinophils # 0.2 K/mcL (0.0-0.6); Hemoglobin 8.7 g/dL (11.5-15.4); Immature Granulocytes % 3.2 % (0-4); Lymphocytes # 1.2 K/mcL (0.6-4.6); Lymphocytes % 15.7 %; Mean Corpuscular HGB Conc 32.2 g/dL (31.6-35.5); Mean Corpuscular Hemoglobin 33.1 pg (28.0-33.3); Mean Corpuscular Volume 102.7 fL (83.0-100.0); Mean Platelet Volume 10.2 fL (9.4-12.4); Monocytes # 0.8 K/mcL (0.0-1.3); Monocytes % 10.5 %; Neutrophils # 5.1 K/mcL (1.6-8.9); Platelet Count 289 K/mcL (140-400); Red Blood Count 2.63 M/mcL (3.82-4.97); Red Cell Distribution Width 14.7 % (11.5-14.5); Segmented Neutrophils % 67.9 %; White Blood Count 7.5 K/mcL (4.3-11.1)
[2021-04-20 04:59] LABS: Calcium 8.7 mg/dL (8.6-10.3); Potassium 5.1 mEq/L (3.5-5.1)
[2021-04-20] MEDS: Acetaminophen 325 MG TABLET PO PRN ×2 (08:15→18:25)
[2021-04-20] MEDS: Cholecalciferol (D-3) 1,000 UNIT (25MCG) TABLET PO SCH (08:16)
[2021-04-20] MEDS: Aspirin 81 MG TAB.CHEW PO SCH (08:16)
[2021-04-20] MEDS: carvediloL 6.25 MG TABLET PO SCH ×2 (08:16→17:09)
[2021-04-20] MEDS: Calcium Acetate 667 MG CAPSULE PO SCH ×3 (08:16→17:09)
[2021-04-20] MEDS: hydrALAZINE 25 MG TABLET PO SCH ×3 (08:17→21:42)
[2021-04-20] MEDS: NIFEdipine XL (24 HR) 30 MG TAB.ER.24 PO SCH (08:17)
[2021-04-20] MEDS: Ranolazine 500 MG TAB.ER.12H PO SCH ×2 (08:17→21:42)
[2021-04-20] MEDS: Folic Acid 1 MG TABLET PO SCH (08:19)
[2021-04-20] MEDS: Insulin LISPRO 300 UNITS/3 ML VIAL SUBQ SCH ×4 (08:19→21:35)
[2021-04-20] MEDS: Insulin DETEMIR 100 UNIT/ML X5UNITS SUBQ SCH ×2 (08:20→21:42)
[2021-04-20] MEDS: Sucralfate 1 GM TABLET PO SCH ×4 (08:20→21:42)
[2021-04-20] MEDS: Heparin 25,000UNIT/250ML 1/2NS 25,000 UNIT/250 ML IV.SOLN IVC SCH (12:17)
[2021-04-20] MEDS: Apixaban 5 MG TABLET PO SCH (17:09)
[2021-04-20] MEDS ORDERED: Apixaban 5 MG TABLET PO SCH (21:00)
[2021-04-20] MEDS: Gabapentin 300 MG CAPSULE PO SCH (21:42)
[2021-04-20] MEDS: Mirtazapine 15 MG TABLET PO SCH (21:42)
[2021-04-21] MEDS ORDERED: *HR* HYDROcodone/Acet 5/325 mg TABLET PO ONE (00:52)
[2021-04-21 03:43] LABS: Basophils # 0.1 K/mcL (0.0-0.2); Basophils % 0.6 %; Eosinophils # 0.2 K/mcL (0.0-0.6); Eosinophils % 1.9 %; Hematocrit 27.4 % (35.3-44.9); Hemoglobin 8.4 g/dL (11.5-15.4); Immature Granulocytes % 3.4 % (0-4); Lymphocytes % 12.5 %; Mean Corpuscular HGB Conc 30.7 g/dL (31.6-35.5); Mean Corpuscular Hemoglobin 31.7 pg (28.0-33.3); Mean Corpuscular Volume 103.4 fL (83.0-100.0); Mean Platelet Volume 10.2 fL (9.4-12.4); Monocytes # 0.8 K/mcL (0.0-1.3); Monocytes % 10.3 %; Neutrophils # 5.7 K/mcL (1.6-8.9); Nucleated Red Blood Cells 0.3 /100 WBC (0); Platelet Count 280 K/mcL (140-400); Red Blood Count 2.65 M/mcL (3.82-4.97); Red Cell Distribution Width 14.6 % (11.5-14.5); Segmented Neutrophils % 71.3 %
[2021-04-21 04:01] LABS: Calcium 8.8 mg/dL (8.6-10.3); Potassium 5.3 mEq/L (3.5-5.1)
[2021-04-21 06:28] LABS: % Iron Saturation 20 % (15-50); Transferrin 174 mg/dL (200-400)
[2021-04-21] MEDS ORDERED: 0.9 % Sodium Chloride 250 ML IVC PRN (08:07)
[2021-04-21] MEDS: Aspirin 81 MG TAB.CHEW PO SCH (08:29)
[2021-04-21] MEDS: Calcium Acetate 667 MG CAPSULE PO SCH ×3 (08:29→16:49)
[2021-04-21] MEDS: Cholecalciferol (D-3) 1,000 UNIT (25MCG) TABLET PO SCH (08:29)
[2021-04-21] MEDS: Folic Acid 1 MG TABLET PO SCH (08:29)
[2021-04-21] MEDS: NIFEdipine XL (24 HR) 30 MG TAB.ER.24 PO SCH (08:29)
[2021-04-21] MEDS: Sucralfate 1 GM TABLET PO SCH ×4 (08:29→21:04)
[2021-04-21] MEDS: hydrALAZINE 25 MG TABLET PO SCH ×3 (08:29→21:03)
[2021-04-21] MEDS: Ranolazine 500 MG TAB.ER.12H PO SCH ×2 (08:29→21:04)
[2021-04-21] MEDS: carvediloL 6.25 MG TABLET PO SCH ×2 (08:29→16:49)
[2021-04-21] MEDS: Insulin LISPRO 300 UNITS/3 ML VIAL SUBQ SCH ×5 (08:30→21:04)
[2021-04-21] MEDS: Apixaban 5 MG TABLET PO SCH ×2 (08:30→21:04)
[2021-04-21] MEDS: Insulin DETEMIR 100 UNIT/ML X5UNITS SUBQ SCH ×2 (08:30→21:04)
[2021-04-21] MEDS: Acetaminophen 325 MG TABLET PO PRN ×2 (08:33→21:05)
[2021-04-21] MEDS: Gabapentin 300 MG CAPSULE PO SCH (21:03)
[2021-04-21] MEDS: Mirtazapine 15 MG TABLET PO SCH (21:04)
[2021-04-21] MEDS: Melatonin 3 MG TABLET PO PRN (21:04)
[2021-04-22 02:19] LABS: Basophils # 0.1 K/mcL (0.0-0.2); Basophils % 0.7 %; Eosinophils # 0.1 K/mcL (0.0-0.6); Eosinophils % 1.8 %; Hematocrit 27.8 % (35.3-44.9); Hemoglobin 8.5 g/dL (11.5-15.4); Immature Granulocytes % 2.7 % (0-4); Lymphocytes % 13.1 %; Mean Corpuscular HGB Conc 30.6 g/dL (31.6-35.5); Mean Corpuscular Hemoglobin 31.7 pg (28.0-33.3); Mean Corpuscular Volume 103.7 fL (83.0-100.0); Monocytes # 0.7 K/mcL (0.0-1.3); Monocytes % 9.1 %; Neutrophils # 5.4 K/mcL (1.6-8.9); Nucleated Red Blood Cells 0.3 /100 WBC (0); Platelet Count 280 K/mcL (140-400); Red Blood Count 2.68 M/mcL (3.82-4.97); Red Cell Distribution Width 14.8 % (11.5-14.5); Segmented Neutrophils % 72.6 %; White Blood Count 7.4 K/mcL (4.3-11.1)
[2021-04-22 02:32] LABS: Calcium 8.9 mg/dL (8.6-10.3); Potassium 5.2 mEq/L (3.5-5.1)
[2021-04-22] MEDS: Acetaminophen 325 MG TABLET PO PRN ×3 (04:46→21:11)
[2021-04-22] MEDS: Sucralfate 1 GM TABLET PO SCH ×4 (08:22→21:11)
[2021-04-22] MEDS: hydrALAZINE 25 MG TABLET PO SCH ×3 (08:22→21:10)
[2021-04-22] MEDS: Apixaban 5 MG TABLET PO SCH ×2 (08:22→21:11)
[2021-04-22] MEDS: Folic Acid 1 MG TABLET PO SCH (08:22)
[2021-04-22] MEDS: Aspirin 81 MG TAB.CHEW PO SCH (08:22)
[2021-04-22] MEDS: NIFEdipine XL (24 HR) 30 MG TAB.ER.24 PO SCH (08:22)
[2021-04-22] MEDS: Calcium Acetate 667 MG CAPSULE PO SCH ×3 (08:22→16:26)
[2021-04-22] MEDS: carvediloL 6.25 MG TABLET PO SCH ×2 (08:23→16:27)
[2021-04-22] MEDS: Ranolazine 500 MG TAB.ER.12H PO SCH ×2 (08:23→21:10)
[2021-04-22] MEDS: Insulin LISPRO 300 UNITS/3 ML VIAL SUBQ SCH ×4 (08:23→21:11)
[2021-04-22] MEDS: Insulin DETEMIR 100 UNIT/ML X5UNITS SUBQ SCH ×2 (08:24→21:11)
[2021-04-22] MEDS: Cholecalciferol (D-3) 1,000 UNIT (25MCG) TABLET PO SCH (08:26)
[2021-04-22] MEDS: Mirtazapine 15 MG TABLET PO SCH (21:11)
[2021-04-22] MEDS: Melatonin 3 MG TABLET PO PRN (21:11)
[2021-04-22] MEDS: Gabapentin 300 MG CAPSULE PO SCH (21:11)
[2021-04-23 04:53] LABS: Basophils # 0.1 K/mcL (0.0-0.2); Basophils % 0.6 %; Eosinophils # 0.2 K/mcL (0.0-0.6); Eosinophils % 2.1 %; Hematocrit 27.2 % (35.3-44.9); Hemoglobin 8.4 g/dL (11.5-15.4); Immature Granulocytes % 1.4 % (0-4); Lymphocytes # 1.2 K/mcL (0.6-4.6); Lymphocytes % 12.3 %; Mean Corpuscular HGB Conc 30.9 g/dL (31.6-35.5); Mean Corpuscular Hemoglobin 32.4 pg (28.0-33.3); Mean Platelet Volume 10.1 fL (9.4-12.4); Monocytes % 10.3 %; Neutrophils # 7.2 K/mcL (1.6-8.9); Nucleated Red Blood Cells 0.2 /100 WBC (0); Platelet Count 282 K/mcL (140-400); Red Blood Count 2.59 M/mcL (3.82-4.97); Red Cell Distribution Width 14.8 % (11.5-14.5); Segmented Neutrophils % 73.3 %; White Blood Count 9.8 K/mcL (4.3-11.1)
[2021-04-23 05:12] LABS: Calcium 9.4 mg/dL (8.6-10.3); Potassium 5.3 mEq/L (3.5-5.1)
[2021-04-23] MEDS: Sucralfate 1 GM TABLET PO SCH ×4 (06:43→20:48)
[2021-04-23] MEDS: Acetaminophen 325 MG TABLET PO PRN ×3 (06:43→23:13)
[2021-04-23] MEDS: Insulin LISPRO 300 UNITS/3 ML VIAL SUBQ SCH ×4 (06:50→21:01)
[2021-04-23] MEDS: NIFEdipine XL (24 HR) 30 MG TAB.ER.24 PO SCH (07:23)
[2021-04-23] MEDS: Ranolazine 500 MG TAB.ER.12H PO SCH ×2 (07:23→20:48)
[2021-04-23] MEDS: hydrALAZINE 25 MG TABLET PO SCH ×3 (07:23→20:47)
[2021-04-23] MEDS: Folic Acid 1 MG TABLET PO SCH (07:23)
[2021-04-23] MEDS: Cholecalciferol (D-3) 1,000 UNIT (25MCG) TABLET PO SCH (07:24)
[2021-04-23] MEDS: Calcium Acetate 667 MG CAPSULE PO SCH ×3 (07:24→16:50)
[2021-04-23] MEDS: Aspirin 81 MG TAB.CHEW PO SCH (07:24)
[2021-04-23] MEDS: Apixaban 5 MG TABLET PO SCH ×2 (07:24→20:47)
[2021-04-23] MEDS: carvediloL 6.25 MG TABLET PO SCH ×2 (07:24→16:50)
[2021-04-23] MEDS: Insulin DETEMIR 100 UNIT/ML X5UNITS SUBQ SCH ×2 (07:30→20:48)
[2021-04-23] MEDS ORDERED: 0.9 % Sodium Chloride 250 ML IVC PRN (07:59)
[2021-04-23] MEDS: Vancomycin 1,000 MG VIAL IVPB SCH (17:44)
[2021-04-23] MEDS: Gabapentin 300 MG CAPSULE PO SCH (20:47)
[2021-04-23] MEDS: Mirtazapine 15 MG TABLET PO SCH (20:48)
[2021-04-24 04:45] LABS: Basophils # 0.1 K/mcL (0.0-0.2); Basophils % 0.6 %; Eosinophils # 0.2 K/mcL (0.0-0.6); Hematocrit 27.5 % (35.3-44.9); Hemoglobin 8.3 g/dL (11.5-15.4); Lymphocytes # 0.9 K/mcL (0.6-4.6); Lymphocytes % 10.5 %; Mean Corpuscular HGB Conc 30.2 g/dL (31.6-35.5); Mean Corpuscular Hemoglobin 31.6 pg (28.0-33.3); Mean Corpuscular Volume 104.6 fL (83.0-100.0); Mean Platelet Volume 9.9 fL (9.4-12.4); Monocytes # 0.8 K/mcL (0.0-1.3); Neutrophils # 6.4 K/mcL (1.6-8.9); Platelet Count 279 K/mcL (140-400); Red Blood Count 2.63 M/mcL (3.82-4.97); Red Cell Distribution Width 14.9 % (11.5-14.5); Segmented Neutrophils % 76.9 %; White Blood Count 8.3 K/mcL (4.3-11.1)
[2021-04-24 05:04] LABS: Potassium 4.9 mEq/L (3.5-5.1)
[2021-04-24] MEDS ORDERED: Morphine Sulfate 2 MG/ML SYRINGE IVP ONE (05:23)
[2021-04-24] MEDS: Acetaminophen 325 MG TABLET PO PRN ×3 (06:12→22:27)
[2021-04-24] MEDS: Folic Acid 1 MG TABLET PO SCH (08:23)
[2021-04-24] MEDS: hydrALAZINE 25 MG TABLET PO SCH ×3 (08:23→19:43)
[2021-04-24] MEDS: Cholecalciferol (D-3) 1,000 UNIT (25MCG) TABLET PO SCH (08:23)
[2021-04-24] MEDS: Apixaban 5 MG TABLET PO SCH ×2 (08:23→19:43)
[2021-04-24] MEDS: Aspirin 81 MG TAB.CHEW PO SCH (08:23)
[2021-04-24] MEDS: NIFEdipine XL (24 HR) 30 MG TAB.ER.24 PO SCH (08:23)
[2021-04-24] MEDS: Ranolazine 500 MG TAB.ER.12H PO SCH ×2 (08:23→19:43)
[2021-04-24] MEDS: carvediloL 6.25 MG TABLET PO SCH ×2 (08:24→16:16)
[2021-04-24] MEDS: Calcium Acetate 667 MG CAPSULE PO SCH ×3 (08:24→16:16)
[2021-04-24] MEDS: Sucralfate 1 GM TABLET PO SCH ×4 (08:24→19:43)
[2021-04-24] MEDS: Insulin LISPRO 300 UNITS/3 ML VIAL SUBQ SCH ×4 (08:31→19:48)
[2021-04-24] MEDS: Vancomycin 1,000 MG VIAL IVPB SCH (15:33)
[2021-04-24] MEDS: Gabapentin 300 MG CAPSULE PO SCH (19:43)
[2021-04-24] MEDS: Mirtazapine 15 MG TABLET PO SCH (19:43)
[2021-04-24] MEDS: Insulin DETEMIR 100 UNIT/ML X5UNITS SUBQ SCH (20:01)
[2021-04-24] MEDS: Nitroglycerin 0.4 MG TAB.SUBL SL PRN ×2 (23:32→23:36)
[2021-04-24] MEDS ORDERED: Isovue-370 500 ML BOTTLE IVP ONE (23:42)
[2021-04-24] MEDS: Morphine Sulfate 2 MG/ML SYRINGE IVP PRN (23:42)
[2021-04-24] MEDS ORDERED: GI Cocktail 40 ML EACH PO ONE (23:47)
[2021-04-25] MEDS: Morphine Sulfate 2 MG/ML SYRINGE IVP PRN ×2 (03:51→07:23)
[2021-04-25] MEDS ORDERED: GI Cocktail 40 ML EACH PO ONE (04:31)
[2021-04-25] MEDS ORDERED: Simethicone 80 MG TAB.CHEW PO PRN (04:31)
[2021-04-25] MEDS ORDERED: Pantoprazole 40 MG VIAL IVP ONE (04:31)
[2021-04-25 04:48] LABS: Basophils # 0.1 K/mcL (0.0-0.2); Eosinophils # 0.2 K/mcL (0.0-0.6); Eosinophils % 2.2 %; Hematocrit 25.3 % (35.3-44.9); Hemoglobin 7.7 g/dL (11.5-15.4); Immature Granulocytes % 0.7 % (0-4); Lymphocytes % 14.1 %; Mean Corpuscular HGB Conc 30.4 g/dL (31.6-35.5); Mean Corpuscular Hemoglobin 31.7 pg (28.0-33.3); Mean Corpuscular Volume 104.1 fL (83.0-100.0); Mean Platelet Volume 9.7 fL (9.4-12.4); Monocytes # 0.8 K/mcL (0.0-1.3); Monocytes % 11.3 %; Neutrophils # 4.7 K/mcL (1.6-8.9); Platelet Count 265 K/mcL (140-400); Red Blood Count 2.43 M/mcL (3.82-4.97); Red Cell Distribution Width 14.9 % (11.5-14.5); Segmented Neutrophils % 70.7 %; White Blood Count 6.7 K/mcL (4.3-11.1)
[2021-04-25 05:09] LABS: Calcium 8.9 mg/dL (8.6-10.3); Potassium 4.9 mEq/L (3.5-5.1)
[2021-04-25] MEDS: Folic Acid 1 MG TABLET PO SCH (07:20)
[2021-04-25] MEDS: hydrALAZINE 25 MG TABLET PO SCH ×3 (07:20→20:45)
[2021-04-25] MEDS: Cholecalciferol (D-3) 1,000 UNIT (25MCG) TABLET PO SCH (07:20)
[2021-04-25] MEDS: carvediloL 6.25 MG TABLET PO SCH ×2 (07:20→16:37)
[2021-04-25] MEDS: Sucralfate 1 GM TABLET PO SCH ×4 (07:20→20:45)
[2021-04-25] MEDS: Calcium Acetate 667 MG CAPSULE PO SCH ×3 (07:20→16:37)
[2021-04-25] MEDS: Aspirin 81 MG TAB.CHEW PO SCH (07:20)
[2021-04-25] MEDS: NIFEdipine XL (24 HR) 30 MG TAB.ER.24 PO SCH (07:20)
[2021-04-25] MEDS: Apixaban 5 MG TABLET PO SCH ×2 (07:20→19:38)
[2021-04-25] MEDS: Ranolazine 500 MG TAB.ER.12H PO SCH ×2 (07:20→19:38)
[2021-04-25] MEDS: Insulin LISPRO 300 UNITS/3 ML VIAL SUBQ SCH ×4 (07:38→19:38)
[2021-04-25] MEDS: Acetaminophen 325 MG TABLET PO PRN ×2 (12:55→19:45)
[2021-04-25] MEDS: Vancomycin 1,000 MG VIAL IVPB SCH (14:34)
[2021-04-25] MEDS: Mirtazapine 15 MG TABLET PO SCH (19:38)
[2021-04-25] MEDS: Gabapentin 300 MG CAPSULE PO SCH (19:38)
[2021-04-25] MEDS ORDERED: Insulin DETEMIR 100 UNIT/ML X5UNITS SUBQ SCH (21:00)
[2021-04-26 05:34] LABS: Basophils # 0.1 K/mcL (0.0-0.2); Basophils % 1.1 %; Eosinophils # 0.1 K/mcL (0.0-0.6); Eosinophils % 1.8 %; Hematocrit 26.6 % (35.3-44.9); Immature Granulocytes % 0.8 % (0-4); Lymphocytes # 1.1 K/mcL (0.6-4.6); Lymphocytes % 15.9 %; Mean Corpuscular HGB Conc 30.1 g/dL (31.6-35.5); Mean Corpuscular Hemoglobin 31.7 pg (28.0-33.3); Mean Corpuscular Volume 105.6 fL (83.0-100.0); Mean Platelet Volume 10.3 fL (9.4-12.4); Monocytes # 0.8 K/mcL (0.0-1.3); Monocytes % 11.5 %; Neutrophils # 4.9 K/mcL (1.6-8.9); Platelet Count 259 K/mcL (140-400); Red Blood Count 2.52 M/mcL (3.82-4.97); Red Cell Distribution Width 15.3 % (11.5-14.5); Segmented Neutrophils % 68.9 %; White Blood Count 7.2 K/mcL (4.3-11.1)
[2021-04-26 05:46] LABS: Calcium 9.2 mg/dL (8.6-10.3); Potassium 5.8 mEq/L (3.5-5.1)
[2021-04-26] MEDS ORDERED: Albuterol 2.5 MG/3 ML NEBULIZER IH ONE (07:26)
[2021-04-26] MEDS ORDERED: Calcium Gluconate 1gm/50mL 1 GM/50 ML BAG IVPB ONE (07:26)
[2021-04-26] MEDS ORDERED: 0.9 % Sodium Chloride 250 ML IVC PRN (07:53)
[2021-04-26] MEDS ORDERED: *HR* Heparin 10,000 UNIT/10 ML VIAL IV PRN (07:53)
[2021-04-26] MEDS: Apixaban 5 MG TABLET PO SCH ×2 (08:19→20:55)
[2021-04-26] MEDS: Ranolazine 500 MG TAB.ER.12H PO SCH ×2 (08:19→20:56)
[2021-04-26] MEDS: Aspirin 81 MG TAB.CHEW PO SCH (08:20)
[2021-04-26] MEDS: carvediloL 6.25 MG TABLET PO SCH ×2 (08:20→16:27)
[2021-04-26] MEDS: hydrALAZINE 25 MG TABLET PO SCH ×3 (08:20→20:56)
[2021-04-26] MEDS: NIFEdipine XL (24 HR) 30 MG TAB.ER.24 PO SCH (08:20)
[2021-04-26] MEDS: Sucralfate 1 GM TABLET PO SCH ×4 (08:20→20:55)
[2021-04-26] MEDS: Calcium Acetate 667 MG CAPSULE PO SCH ×3 (08:20→16:27)
[2021-04-26] MEDS: Cholecalciferol (D-3) 1,000 UNIT (25MCG) TABLET PO SCH (08:20)
[2021-04-26] MEDS: Folic Acid 1 MG TABLET PO SCH (08:20)
[2021-04-26] MEDS: Insulin LISPRO 300 UNITS/3 ML VIAL SUBQ SCH ×4 (08:21→20:53)
[2021-04-26] MEDS: Mirtazapine 15 MG TABLET PO SCH (20:55)
[2021-04-26] MEDS: Gabapentin 300 MG CAPSULE PO SCH (20:56)
[2021-04-26] MEDS ORDERED: Insulin DETEMIR 100 UNIT/ML X5UNITS SUBQ SCH (21:00)
[2021-04-27 02:03] LABS: Basophils # 0.1 K/mcL (0.0-0.2); Basophils % 0.7 %; Eosinophils # 0.2 K/mcL (0.0-0.6); Hematocrit 23.5 % (35.3-44.9); Hemoglobin 7.4 g/dL (11.5-15.4); Immature Granulocytes % 0.7 % (0-4); Lymphocytes # 1.2 K/mcL (0.6-4.6); Lymphocytes % 15.7 %; Mean Corpuscular HGB Conc 31.5 g/dL (31.6-35.5); Mean Corpuscular Hemoglobin 32.7 pg (28.0-33.3); Monocytes # 0.6 K/mcL (0.0-1.3); Monocytes % 7.5 %; Neutrophils # 5.6 K/mcL (1.6-8.9); Platelet Count 242 K/mcL (140-400); Red Blood Count 2.26 M/mcL (3.82-4.97); Red Cell Distribution Width 15.2 % (11.5-14.5); Segmented Neutrophils % 73.4 %; White Blood Count 7.6 K/mcL (4.3-11.1)
[2021-04-27 02:16] LABS: Calcium 8.9 mg/dL (8.6-10.3); Potassium 5.5 mEq/L (3.5-5.1)
[2021-04-27] MEDS: Acetaminophen 325 MG TABLET PO PRN (02:25)
[2021-04-27] MEDS: Sucralfate 1 GM TABLET PO SCH ×3 (05:52→17:09)
[2021-04-27] MEDS: Aspirin 81 MG TAB.CHEW PO SCH (07:45)
[2021-04-27] MEDS: carvediloL 6.25 MG TABLET PO SCH ×2 (07:45→17:09)
[2021-04-27] MEDS: hydrALAZINE 25 MG TABLET PO SCH ×2 (07:45→17:36)
[2021-04-27] MEDS: NIFEdipine XL (24 HR) 30 MG TAB.ER.24 PO SCH (07:45)
[2021-04-27] MEDS: Apixaban 5 MG TABLET PO SCH (07:45)
[2021-04-27] MEDS: Cholecalciferol (D-3) 1,000 UNIT (25MCG) TABLET PO SCH (07:45)
[2021-04-27] MEDS: Ranolazine 500 MG TAB.ER.12H PO SCH (07:46)
[2021-04-27] MEDS: Folic Acid 1 MG TABLET PO SCH (07:46)
[2021-04-27] MEDS: Calcium Acetate 667 MG CAPSULE PO SCH ×3 (07:46→17:09)
[2021-04-27] MEDS: Insulin LISPRO 300 UNITS/3 ML VIAL SUBQ SCH ×3 (07:56→17:09)
[2021-04-27] MEDS ORDERED: 0.9 % Sodium Chloride 250 ML IVC PRN (08:19)
[2021-04-27 15:38] VITALS: BP 122/57; PULSE 77; TEMP 98.1; O2SAT 94
[2021-04-27] MEDS ORDERED: Apixaban 5 MG TABLET PO SCH (21:00)
== END 2021-04-27 17:58 | disposition home health service (06) | DRG 721 ==
LOC: 2ANU → SUATTDRO 21:54
PROVIDERS: ADMIT Family Medicine; ATTEND Internal Medicine

== ENCOUNTER 2021-05-02 02:57 | Inpatient (IN) ==
[2021-05-02] MEDS ORDERED: Naloxone 0.4 MG/ML INJ IVP PRN (08:09)
[2021-05-02] MEDS ORDERED: Acetaminophen 325 MG TABLET PO PRN (08:09)
[2021-05-02] MEDS ORDERED: Ondansetron 4 MG/2 ML VIAL IVP PRN (08:09)
[2021-05-02] MEDS ORDERED: Perflutren Lipid Microsphere 1.3 ML in 0.9 % Sodium Chloride 8.7 ML IVP PRN (08:14)
[2021-05-02 09:13] LABS: VBG HCO3 27 mEq/L (21-27); VBG PCO2 44 mmHg (41-51); VBG PH 7.39 pH Units (7.32-7.42); VBG PO2 93 mmHg (25-50)
[2021-05-02 09:13] LABS: Basophils % 0.5 %; Eosinophils # 0.2 K/mcL (0.0-0.6); Hematocrit 25.4 % (35.3-44.9); Hemoglobin 7.6 g/dL (11.5-15.4); Immature Granulocytes % 1.8 % (0-4); Lymphocytes # 0.9 K/mcL (0.6-4.6); Lymphocytes % 12.2 %; Mean Corpuscular HGB Conc 29.9 g/dL (31.6-35.5); Mean Corpuscular Hemoglobin 31.5 pg (28.0-33.3); Mean Corpuscular Volume 105.4 fL (83.0-100.0); Mean Platelet Volume 9.9 fL (9.4-12.4); Monocytes # 0.9 K/mcL (0.0-1.3); Monocytes % 11.8 %; Neutrophils # 5.1 K/mcL (1.6-8.9); Nucleated Red Blood Cells 0.7 /100 WBC (0); Platelet Count 264 K/mcL (140-400); Red Blood Count 2.41 M/mcL (3.82-4.97); Red Cell Distribution Width 17.1 % (11.5-14.5); Segmented Neutrophils % 70.7 %; White Blood Count 7.3 K/mcL (4.3-11.1)
[2021-05-02 09:31] LABS: Calcium 8.7 mg/dL (8.6-10.3); Potassium 4.5 mEq/L (3.5-5.1)
[2021-05-02 09:32] LABS: INR 1.4; Prothrombin Time 16.1 Seconds (9.4-12.1)
[2021-05-02 09:43] LABS: Albumin 3.5 g/dL (3.5-5.7); Albumin/Globulin Ratio 1.4 (1.1-2.2); Bilirubin,Direct 0.1 mg/dL (0.0-0.2); Bilirubin,Indirect 0.2 mg/dL (0.0-1.0); Bilirubin,Total 0.3 mg/dL (0.3-1.0); Globulin 2.5 g/dL (2.4-3.5); Magnesium 1.8 mg/dL (1.6-2.6); Troponin I 0.06 ng/mL (< 0.04)
[2021-05-02] MEDS ORDERED: Vancomycin 1 EACH in 0.9 % Sodium Chloride 250 ML IVPB PRN (10:00)
[2021-05-02] MEDS ORDERED: Dextrose Gel 15 GM/37.5 ML TUBE PO PRN ×2 (17:40)
[2021-05-02] MEDS ORDERED: D5% in Water 1,000 ML IVC PRN (17:40)
[2021-05-02] MEDS ORDERED: *HR* Dextrose 50 % in Water (Syg) 50 ML SYRINGE IVP PRN (17:40)
[2021-05-02] MEDS: Insulin LISPRO 300 UNITS/3 ML VIAL SUBQ SCH ×2 (17:59→20:58)
[2021-05-02] MEDS ORDERED: Morphine Sulfate 2 MG/ML SYRINGE IVP ONE (22:32)
[2021-05-02] MEDS ORDERED: Famotidine 20 MG/2 ML VIAL IVP ONE (22:34)
[2021-05-03] MEDS ORDERED: Morphine Sulfate 2 MG/ML SYRINGE IVP ONE (05:19)
[2021-05-03 06:17] LABS: Basophils # 0.1 K/mcL (0.0-0.2); Basophils % 0.7 %; Eosinophils # 0.3 K/mcL (0.0-0.6); Eosinophils % 3.2 %; Hematocrit 26.2 % (35.3-44.9); Hemoglobin 7.8 g/dL (11.5-15.4); Immature Granulocytes % 0.8 % (0-4); Lymphocytes # 0.9 K/mcL (0.6-4.6); Lymphocytes % 10.3 %; Mean Corpuscular HGB Conc 29.8 g/dL (31.6-35.5); Mean Corpuscular Hemoglobin 31.5 pg (28.0-33.3); Mean Corpuscular Volume 105.6 fL (83.0-100.0); Mean Platelet Volume 10.1 fL (9.4-12.4); Monocytes # 0.8 K/mcL (0.0-1.3); Neutrophils # 6.3 K/mcL (1.6-8.9); Nucleated Red Blood Cells 0.4 /100 WBC (0); Platelet Count 273 K/mcL (140-400); Red Blood Count 2.48 M/mcL (3.82-4.97); Red Cell Distribution Width 17.2 % (11.5-14.5); White Blood Count 8.4 K/mcL (4.3-11.1)
[2021-05-03 06:34] LABS: Iron 31 mcg/dL (50-170)
[2021-05-03 06:37] LABS: Calcium 8.6 mg/dL (8.6-10.3); Magnesium 1.7 mg/dL (1.6-2.6); Potassium 5.5 mEq/L (3.5-5.1)
[2021-05-03 06:42] LABS: Phosphorous 5.4 mg/dL (2.7-4.5)
[2021-05-03 06:53] LABS: Ferritin 787 ng/mL (10-120); Thyroid Stimulating Hormone 13.068 mcIU/mL (0.340-5.600)
[2021-05-03 07:05] LABS: Folate 15.2 ng/mL (3.0-16.0)
[2021-05-03] MEDS ORDERED: Calcium Acetate 667 MG CAPSULE PO SCH (07:30)
[2021-05-03] MEDS: Aspirin 81 MG TAB.CHEW PO SCH (08:22)
[2021-05-03] MEDS: NIFEdipine XL (24 HR) 30 MG TAB.ER.24 PO SCH (08:22)
[2021-05-03] MEDS: Ranolazine 500 MG TAB.ER.12H PO SCH ×2 (08:23→20:38)
[2021-05-03] MEDS: Calcium Acetate 667 MG CAPSULE PO SCH ×3 (08:23→16:03)
[2021-05-03] MEDS: hydrALAZINE 25 MG TABLET PO SCH ×3 (08:23→20:37)
[2021-05-03] MEDS ORDERED: *HR* Heparin 10,000 UNIT/10 ML VIAL IV PRN (08:24)
[2021-05-03] MEDS: Insulin LISPRO 300 UNITS/3 ML VIAL SUBQ SCH ×4 (08:24→20:38)
[2021-05-03] MEDS: Apixaban 5 MG TABLET PO SCH ×2 (08:24→20:38)
[2021-05-03] MEDS ORDERED: 0.9 % Sodium Chloride 250 ML IVC PRN (08:24)
[2021-05-03] MEDS: Sucralfate 1 GM TABLET PO SCH ×4 (08:24→20:37)
[2021-05-03] MEDS: carvediloL 25 MG TABLET PO SCH ×2 (08:25→16:03)
[2021-05-03] MEDS ORDERED: 0.9 % Sodium Chloride 1,000 ML PRIME SCH (08:30)
[2021-05-03 11:23] LABS: Hepatitis B Surface Antigen Nonreactive (Nonreactive)
[2021-05-03 12:37] LABS: Hepatitis B Surface Antibody 9.18 mIU/mL
[2021-05-03 12:59] LABS: Acinetobacter baumannii by PCR Not Detected (Not Detect); Enterobacter cloacae Cmplx PCR Not Detected (Not Detect); Enterobacteriaceae by PCR Not Detected (Not Detect); Enterococcus by PCR Not Detected (Not Detect); Escherichia coli by PCR Not Detected (Not Detect); Klebsiella oxytoca by PCR Not Detected (Not Detect); Klebsiella pneumoniae by PCR Not Detected (Not Detect); Proteus by PCR Not Detected (Not Detect); Serratia marcescens by PCR Not Detected (Not Detect); Staphylococcus aureus by PCR DETECTED (Not Detect); Streptococcus agalactiae(B)PCR Not Detected (Not Detect); Streptococcus by PCR Not Detected (Not Detect); Streptococcus pneumoniae PCR Not Detected (Not Detect); Streptococcus pyogenes (A) PCR Not Detected (Not Detect); mecA Methicillin-Resist Gene DETECTED (Not Detect)
[2021-05-03 13:00] LABS: Candida albicans by PCR Not Detected (Not Detect); Candida glabrata by PCR Not Detected (Not Detect); Candida krusei by PCR Not Detected (Not Detect); Candida parapsilosis by PCR Not Detected (Not Detect); Candida tropicalis by PCR Not Detected (Not Detect); Pseudomonas aeruginosa by PCR Not Detected (Not Detect)
[2021-05-03] MEDS ORDERED: *HR* HYDROmorphone (PF) 1 MG/ML SYRINGE IVP ONE (14:20)
[2021-05-03] MEDS ORDERED: Vancomycin 1,500 MG/265 ML IV.SOLN IVPB ONE (16:00)
[2021-05-03] MEDS: *HR* OxyCODONE Immed Rel 5 MG TABLET PO PRN (19:55)
[2021-05-03] MEDS: Insulin DETEMIR 100 UNIT/ML X5UNITS SUBQ SCH (20:37)
[2021-05-03] MEDS: Mirtazapine 15 MG TABLET PO SCH (20:38)
[2021-05-03] MEDS: Gabapentin 300 MG CAPSULE PO SCH (20:38)
[2021-05-04] MEDS: *HR* OxyCODONE Immed Rel 5 MG TABLET PO PRN ×4 (02:03→22:42)
[2021-05-04 06:01] LABS: Hematocrit 24.4 % (35.3-44.9); Hemoglobin 7.4 g/dL (11.5-15.4); Mean Corpuscular HGB Conc 30.3 g/dL (31.6-35.5); Mean Corpuscular Hemoglobin 31.8 pg (28.0-33.3); Mean Corpuscular Volume 104.7 fL (83.0-100.0); Platelet Count 229 K/mcL (140-400); Red Blood Count 2.33 M/mcL (3.82-4.97); Red Cell Distribution Width 17.4 % (11.5-14.5); White Blood Count 6.4 K/mcL (4.3-11.1)
[2021-05-04 06:16] LABS: Calcium 8.6 mg/dL (8.6-10.3)
[2021-05-04] MEDS: Calcium Acetate 667 MG CAPSULE PO SCH ×3 (08:20→16:03)
[2021-05-04] MEDS: Folic Acid 1 MG TABLET PO SCH (08:20)
[2021-05-04] MEDS: Sucralfate 1 GM TABLET PO SCH ×4 (08:20→20:44)
[2021-05-04] MEDS: Apixaban 5 MG TABLET PO SCH ×2 (08:20→20:45)
[2021-05-04] MEDS: NIFEdipine XL (24 HR) 30 MG TAB.ER.24 PO SCH (08:20)
[2021-05-04] MEDS: Ranolazine 500 MG TAB.ER.12H PO SCH ×2 (08:20→20:44)
[2021-05-04] MEDS: hydrALAZINE 25 MG TABLET PO SCH ×3 (08:21→20:44)
[2021-05-04] MEDS: carvediloL 25 MG TABLET PO SCH ×2 (08:21→16:03)
[2021-05-04] MEDS: Aspirin 81 MG TAB.CHEW PO SCH (08:21)
[2021-05-04] MEDS: Insulin LISPRO 300 UNITS/3 ML VIAL SUBQ SCH ×4 (08:28→20:45)
[2021-05-04] MEDS: lisinopriL 5 MG TABLET PO SCH (08:57)
[2021-05-04] MEDS: Isosorbide MONOnitrate (24 HR) 60 MG TAB.ER.24H PO SCH (11:10)
[2021-05-04] MEDS: Gabapentin 300 MG CAPSULE PO SCH (20:44)
[2021-05-04] MEDS: Mirtazapine 15 MG TABLET PO SCH (20:44)
[2021-05-04] MEDS: Insulin DETEMIR 100 UNIT/ML X5UNITS SUBQ SCH (20:45)
[2021-05-05 04:50] LABS: Hematocrit 25.4 % (35.3-44.9); Hemoglobin 7.7 g/dL (11.5-15.4); Mean Corpuscular HGB Conc 30.3 g/dL (31.6-35.5); Mean Corpuscular Hemoglobin 32.1 pg (28.0-33.3); Mean Corpuscular Volume 105.8 fL (83.0-100.0); Platelet Count 276 K/mcL (140-400)
[2021-05-05 04:55] LABS: Calcium 8.7 mg/dL (8.6-10.3); Potassium 5.6 mEq/L (3.5-5.1)
[2021-05-05] MEDS: *HR* OxyCODONE Immed Rel 5 MG TABLET PO PRN ×3 (05:29→23:42)
[2021-05-05] MEDS ORDERED: 0.9 % Sodium Chloride 250 ML IVC PRN (07:48)
[2021-05-05] MEDS: Calcium Acetate 667 MG CAPSULE PO SCH ×3 (08:00→17:36)
[2021-05-05] MEDS: Folic Acid 1 MG TABLET PO SCH (08:12)
[2021-05-05] MEDS: Aspirin 81 MG TAB.CHEW PO SCH (08:12)
[2021-05-05] MEDS: hydrALAZINE 25 MG TABLET PO SCH ×3 (08:13→23:42)
[2021-05-05] MEDS: Ranolazine 500 MG TAB.ER.12H PO SCH ×2 (08:13→20:47)
[2021-05-05] MEDS: Sucralfate 1 GM TABLET PO SCH ×4 (08:13→20:47)
[2021-05-05] MEDS: NIFEdipine XL (24 HR) 30 MG TAB.ER.24 PO SCH (08:13)
[2021-05-05] MEDS: Isosorbide MONOnitrate (24 HR) 60 MG TAB.ER.24H PO SCH (08:14)
[2021-05-05] MEDS: Apixaban 5 MG TABLET PO SCH ×2 (08:14→20:47)
[2021-05-05] MEDS: carvediloL 25 MG TABLET PO SCH ×2 (08:17→17:36)
[2021-05-05] MEDS: Insulin LISPRO 300 UNITS/3 ML VIAL SUBQ SCH ×4 (08:20→20:38)
[2021-05-05] MEDS ORDERED: *HR* FentaNYL (PF) 100 MCG/2 ML VIAL IVP PRN (14:31)
[2021-05-05] MEDS ORDERED: Lidocaine Viscous Oral Soln 15 ML SOLUTION MM PRN (14:31)
[2021-05-05] MEDS ORDERED: *HR* Midazolam HCl 5 MG/5 ML VIAL IVP PRN (14:32)
[2021-05-05] MEDS ORDERED: 0.9 % Sodium Chloride 500 ML IVC ONE (14:32)
[2021-05-05 17:44] LABS: % Iron Saturation 12 % (15-50); Transferrin 189 mg/dL (200-400)
[2021-05-05] MEDS: Gabapentin 300 MG CAPSULE PO SCH (20:47)
[2021-05-05] MEDS: Mirtazapine 15 MG TABLET PO SCH (20:47)
[2021-05-05] MEDS: Insulin DETEMIR 100 UNIT/ML X5UNITS SUBQ SCH (20:47)
[2021-05-06 03:52] LABS: Hematocrit 25.8 % (35.3-44.9); Hemoglobin 7.6 g/dL (11.5-15.4); Mean Corpuscular HGB Conc 29.5 g/dL (31.6-35.5); Mean Corpuscular Hemoglobin 30.9 pg (28.0-33.3); Mean Corpuscular Volume 104.9 fL (83.0-100.0); Mean Platelet Volume 9.6 fL (9.4-12.4); Platelet Count 251 K/mcL (140-400); Red Blood Count 2.46 M/mcL (3.82-4.97); Red Cell Distribution Width 16.8 % (11.5-14.5)
[2021-05-06 04:02] LABS: Calcium 8.4 mg/dL (8.6-10.3)
[2021-05-06] MEDS: *HR* OxyCODONE Immed Rel 5 MG TABLET PO PRN ×2 (06:11→20:14)
[2021-05-06] MEDS: Calcium Acetate 667 MG CAPSULE PO SCH ×3 (08:35→17:29)
[2021-05-06] MEDS: Ranolazine 500 MG TAB.ER.12H PO SCH ×2 (08:35→20:05)
[2021-05-06] MEDS: NIFEdipine XL (24 HR) 30 MG TAB.ER.24 PO SCH (08:35)
[2021-05-06] MEDS: Sucralfate 1 GM TABLET PO SCH ×4 (08:35→20:05)
[2021-05-06] MEDS: hydrALAZINE 25 MG TABLET PO SCH ×3 (08:35→20:05)
[2021-05-06] MEDS: Apixaban 5 MG TABLET PO SCH ×2 (08:35→20:05)
[2021-05-06] MEDS: carvediloL 25 MG TABLET PO SCH ×2 (08:36→17:29)
[2021-05-06] MEDS: Isosorbide MONOnitrate (24 HR) 60 MG TAB.ER.24H PO SCH (08:36)
[2021-05-06] MEDS: Aspirin 81 MG TAB.CHEW PO SCH (08:36)
[2021-05-06] MEDS: Folic Acid 1 MG TABLET PO SCH (08:36)
[2021-05-06] MEDS: Insulin LISPRO 300 UNITS/3 ML VIAL SUBQ SCH ×4 (08:37→20:06)
[2021-05-06] MEDS: Mirtazapine 15 MG TABLET PO SCH (20:05)
[2021-05-06] MEDS: Gabapentin 300 MG CAPSULE PO SCH (20:05)
[2021-05-06] MEDS: Insulin DETEMIR 100 UNIT/ML X5UNITS SUBQ SCH (20:14)
[2021-05-07] MEDS: *HR* OxyCODONE Immed Rel 5 MG TABLET PO PRN ×3 (02:34→18:19)
[2021-05-07] MEDS: Insulin LISPRO 300 UNITS/3 ML VIAL SUBQ SCH ×4 (08:34→20:52)
[2021-05-07] MEDS: Folic Acid 1 MG TABLET PO SCH (08:35)
[2021-05-07] MEDS: Aspirin 81 MG TAB.CHEW PO SCH (08:35)
[2021-05-07] MEDS: Sucralfate 1 GM TABLET PO SCH ×4 (08:35→20:48)
[2021-05-07] MEDS: Apixaban 5 MG TABLET PO SCH ×2 (08:35→20:48)
[2021-05-07] MEDS: Calcium Acetate 667 MG CAPSULE PO SCH ×3 (08:35→18:09)
[2021-05-07] MEDS: NIFEdipine XL (24 HR) 30 MG TAB.ER.24 PO SCH (08:36)
[2021-05-07] MEDS: hydrALAZINE 25 MG TABLET PO SCH ×3 (08:36→20:48)
[2021-05-07] MEDS: Isosorbide MONOnitrate (24 HR) 60 MG TAB.ER.24H PO SCH (08:36)
[2021-05-07] MEDS: carvediloL 25 MG TABLET PO SCH ×2 (08:38→18:09)
[2021-05-07] MEDS: Ranolazine 500 MG TAB.ER.12H PO SCH ×2 (08:38→20:48)
[2021-05-07 08:46] LABS: Hematocrit 25.8 % (35.3-44.9); Hemoglobin 7.7 g/dL (11.5-15.4); Mean Corpuscular HGB Conc 29.8 g/dL (31.6-35.5); Mean Corpuscular Hemoglobin 32.1 pg (28.0-33.3); Mean Corpuscular Volume 107.5 fL (83.0-100.0); Mean Platelet Volume 10.2 fL (9.4-12.4); Platelet Count 283 K/mcL (140-400); Red Cell Distribution Width 16.4 % (11.5-14.5); White Blood Count 6.4 K/mcL (4.3-11.1)
[2021-05-07 11:00] LABS: Calcium 8.7 mg/dL (8.6-10.3); Potassium 5.7 mEq/L (3.5-5.1)
[2021-05-07] MEDS ORDERED: 0.9 % Sodium Chloride 250 ML IVC PRN (11:56)
[2021-05-07] MEDS ORDERED: 0.9 % Sodium Chloride 1,000 ML PRIME SCH (12:00)
[2021-05-07] MEDS ORDERED: Vancomycin 500 MG in 0.9 % Sodium Chloride Mini Bag 100 ML IVPB ONE (16:00)
[2021-05-07] MEDS: Gabapentin 300 MG CAPSULE PO SCH (20:48)
[2021-05-07] MEDS: Mirtazapine 15 MG TABLET PO SCH (20:48)
[2021-05-07] MEDS: Insulin DETEMIR 100 UNIT/ML X5UNITS SUBQ SCH (20:50)
[2021-05-08] MEDS: *HR* OxyCODONE Immed Rel 5 MG TABLET PO PRN ×2 (00:48→11:29)
[2021-05-08 01:18] LABS: Calcium 8.7 mg/dL (8.6-10.3); Potassium 4.8 mEq/L (3.5-5.1)
[2021-05-08] MEDS: Ranolazine 500 MG TAB.ER.12H PO SCH (07:34)
[2021-05-08] MEDS: NIFEdipine XL (24 HR) 30 MG TAB.ER.24 PO SCH (07:34)
[2021-05-08] MEDS: carvediloL 25 MG TABLET PO SCH ×2 (07:34→16:47)
[2021-05-08] MEDS: Aspirin 81 MG TAB.CHEW PO SCH (07:34)
[2021-05-08] MEDS: Sucralfate 1 GM TABLET PO SCH ×3 (07:34→16:47)
[2021-05-08] MEDS: Isosorbide MONOnitrate (24 HR) 60 MG TAB.ER.24H PO SCH (07:34)
[2021-05-08] MEDS: Folic Acid 1 MG TABLET PO SCH (07:34)
[2021-05-08] MEDS: Calcium Acetate 667 MG CAPSULE PO SCH ×3 (07:34→16:47)
[2021-05-08] MEDS: Apixaban 5 MG TABLET PO SCH (07:35)
[2021-05-08] MEDS: hydrALAZINE 25 MG TABLET PO SCH ×2 (07:35→15:20)
[2021-05-08] MEDS: lisinopriL 5 MG TABLET PO SCH (07:36)
[2021-05-08] MEDS: Insulin LISPRO 300 UNITS/3 ML VIAL SUBQ SCH ×3 (07:36→16:47)
[2021-05-08] MEDS ORDERED: 0.9 % Sodium Chloride 500 ML ONE (12:47)
[2021-05-08] MEDS ORDERED: 0.9 % Sodium Chloride 500 ML IVC ONE (12:51)
[2021-05-08 15:46] VITALS: BP 108/56; PULSE 67; TEMP 98.2; O2SAT 97
== END 2021-05-08 19:15 | disposition short-term general hospital (02) | DRG 721 ==
LOC: 2ANU → SUATTDRO 05:30
PROVIDERS: ADMIT Pharmacist; ATTEND Internal Medicine

== ENCOUNTER 2021-05-24 18:15 | Inpatient (IN) ==
[2021-05-24] MEDS ORDERED: Acetaminophen 325 MG TABLET PO PRN (21:42)
[2021-05-24] MEDS ORDERED: Naloxone 0.4 MG/ML INJ IVP PRN (21:42)
[2021-05-24] MEDS ORDERED: Ondansetron 4 MG/2 ML VIAL IVP PRN (21:42)
[2021-05-24] MEDS: *HR* OxyCODONE Immed Rel 5 MG TABLET PO PRN (22:13)
[2021-05-24] MEDS: Melatonin 3 MG TABLET PO PRN (22:14)
[2021-05-24] MEDS ORDERED: Vancomycin 1,500 MG/265 ML IV.SOLN IVPB SCH (23:00)
[2021-05-25] MEDS: *HR* HYDROcodone/Acet 5/325 mg TABLET PO PRN ×2 (00:19→17:48)
[2021-05-25 01:39] LABS: Basophils # 0.1 K/mcL (0.0-0.2); Basophils % 0.5 %; Eosinophils # 0.3 K/mcL (0.0-0.6); Eosinophils % 2.3 %; Hemoglobin 8.6 g/dL (11.5-15.4); Immature Granulocytes % 0.8 % (0-4); Lymphocytes # 0.7 K/mcL (0.6-4.6); Lymphocytes % 5.8 %; Mean Corpuscular HGB Conc 29.7 g/dL (31.6-35.5); Mean Corpuscular Hemoglobin 31.3 pg (28.0-33.3); Mean Corpuscular Volume 105.5 fL (83.0-100.0); Mean Platelet Volume 9.6 fL (9.4-12.4); Monocytes # 1.4 K/mcL (0.0-1.3); Monocytes % 11.3 %; Neutrophils # 10.2 K/mcL (1.6-8.9); Platelet Count 308 K/mcL (140-400); Red Blood Count 2.75 M/mcL (3.82-4.97); Red Cell Distribution Width 16.9 % (11.5-14.5); Segmented Neutrophils % 79.3 %; White Blood Count 12.8 K/mcL (4.3-11.1)
[2021-05-25 01:51] LABS: INR 1.5; Prothrombin Time 16.7 Seconds (9.4-12.1)
[2021-05-25 02:10] LABS: Albumin 3.8 g/dL (3.5-5.7); Albumin/Globulin Ratio 1.4 (1.1-2.2); Bilirubin,Total 0.4 mg/dL (0.3-1.0); Calcium 8.7 mg/dL (8.6-10.3); Globulin 2.7 g/dL (2.4-3.5); Magnesium 1.8 mg/dL (1.6-2.6); Phosphorous 6.1 mg/dL (2.7-4.5); Potassium 4.1 mEq/L (3.5-5.1); Total Protein 6.5 g/dL (6.4-8.9)
[2021-05-25] MEDS: *HR* OxyCODONE Immed Rel 5 MG TABLET PO PRN ×3 (04:11→19:49)
[2021-05-25] MEDS ORDERED: Morphine Sulfate 2 MG/ML SYRINGE IVP ONE (04:56)
[2021-05-25] MEDS ORDERED: D5% in Water 1,000 ML IVC PRN (04:58)
[2021-05-25] MEDS ORDERED: *HR* Dextrose 50 % in Water (Syg) 50 ML SYRINGE IVP PRN (04:58)
[2021-05-25] MEDS ORDERED: Dextrose Gel 15 GM/37.5 ML TUBE PO PRN ×2 (04:58)
[2021-05-25] MEDS ORDERED: 0.9 % Sodium Chloride 250 ML IVC PRN (07:18)
[2021-05-25] MEDS ORDERED: 0.9 % Sodium Chloride 1,000 ML PRIME SCH (07:30)
[2021-05-25 08:52] LABS: Amphetamine Screen,Urine Negative ng/mL (Cutoff=1000); Barbiturate Screen,Urine Negative ng/mL (Cutoff=200); Benzodiazepines Screen,Urine Negative ng/mL (Cutoff=200); Cannabinoid Screen,Urine Negative ng/mL (Cutoff = 50); Cocaine Screen,Urine Negative ng/mL (Cutoff= 300); Opiate Screen,Urine Positive ng/mL (Cutoff=300); Phencyclidine Screen,Urine Negative ng/mL (Cutoff=25)
[2021-05-25] MEDS: carvediloL 25 MG TABLET PO SCH ×2 (09:00→17:48)
[2021-05-25] MEDS: Calcium Acetate 667 MG CAPSULE PO SCH ×3 (09:00→17:48)
[2021-05-25] MEDS ORDERED: Ipratropium/Albuterol Neb 3 ML IH PRN (10:28)
[2021-05-25] MEDS: hydrALAZINE 25 MG TABLET PO SCH ×3 (14:35→19:50)
[2021-05-25] MEDS: Aspirin 81 MG TAB.CHEW PO SCH (14:39)
[2021-05-25] MEDS: Apixaban 5 MG TABLET PO SCH ×2 (14:39→19:51)
[2021-05-25] MEDS: cefTRIAXone 1,000 MG in 0.9 % Sodium Chloride Mini Bag 100 ML IVPB SCH (14:40)
[2021-05-25] MEDS: Ranolazine 500 MG TAB.ER.12H PO SCH ×2 (14:40→19:50)
[2021-05-25] MEDS: Gabapentin 300 MG CAPSULE PO SCH (19:50)
[2021-05-26] MEDS: *HR* HYDROcodone/Acet 5/325 mg TABLET PO PRN ×5 (01:08→21:50)
[2021-05-26] MEDS: *HR* OxyCODONE Immed Rel 5 MG TABLET PO PRN ×2 (02:22→20:34)
[2021-05-26 04:47] LABS: Hematocrit 29.2 % (35.3-44.9); Hemoglobin 8.7 g/dL (11.5-15.4); Mean Corpuscular HGB Conc 29.8 g/dL (31.6-35.5); Mean Corpuscular Hemoglobin 30.4 pg (28.0-33.3); Mean Corpuscular Volume 102.1 fL (83.0-100.0); Mean Platelet Volume 9.9 fL (9.4-12.4); Platelet Count 282 K/mcL (140-400); Red Blood Count 2.86 M/mcL (3.82-4.97); Red Cell Distribution Width 16.7 % (11.5-14.5); White Blood Count 10.1 K/mcL (4.3-11.1)
[2021-05-26 05:01] LABS: INR 1.8; Prothrombin Time 19.6 Seconds (9.4-12.1)
[2021-05-26 05:06] LABS: Albumin 3.7 g/dL (3.5-5.7); Albumin/Globulin Ratio 1.3 (1.1-2.2); Bilirubin,Total 0.4 mg/dL (0.3-1.0); Calcium 8.7 mg/dL (8.6-10.3); Globulin 2.9 g/dL (2.4-3.5); Potassium 3.8 mEq/L (3.5-5.1); Total Protein 6.6 g/dL (6.4-8.9)
[2021-05-26] MEDS ORDERED: 0.9 % Sodium Chloride 250 ML IVC PRN (07:33)
[2021-05-26] MEDS: hydrALAZINE 25 MG TABLET PO SCH ×3 (14:31→20:34)
[2021-05-26] MEDS: carvediloL 25 MG TABLET PO SCH ×2 (14:31→17:28)
[2021-05-26] MEDS: Calcium Acetate 667 MG CAPSULE PO SCH ×3 (14:31→17:28)
[2021-05-26] MEDS: Ranolazine 500 MG TAB.ER.12H PO SCH ×2 (14:41→20:34)
[2021-05-26] MEDS: cefTRIAXone 1,000 MG in 0.9 % Sodium Chloride Mini Bag 100 ML IVPB SCH (14:41)
[2021-05-26] MEDS: Aspirin 81 MG TAB.CHEW PO SCH (14:41)
[2021-05-26] MEDS: Apixaban 5 MG TABLET PO SCH ×2 (14:45→20:34)
[2021-05-26] MEDS ORDERED: Vancomycin 500 MG in 0.9 % Sodium Chloride Mini Bag 100 ML IVPB ONE ×3 (16:58→20:00)
[2021-05-26] MEDS: Melatonin 3 MG TABLET PO PRN (20:34)
[2021-05-26] MEDS: Gabapentin 300 MG CAPSULE PO SCH (20:34)
[2021-05-27 03:25] LABS: Basophils # 0.1 K/mcL (0.0-0.2); Basophils % 0.5 %; Eosinophils # 0.2 K/mcL (0.0-0.6); Eosinophils % 1.6 %; Hematocrit 28.8 % (35.3-44.9); Hemoglobin 8.8 g/dL (11.5-15.4); Immature Granulocytes % 0.5 % (0-4); Lymphocytes # 0.7 K/mcL (0.6-4.6); Lymphocytes % 6.4 %; Mean Corpuscular HGB Conc 30.6 g/dL (31.6-35.5); Mean Corpuscular Hemoglobin 31.5 pg (28.0-33.3); Mean Corpuscular Volume 103.2 fL (83.0-100.0); Mean Platelet Volume 10.1 fL (9.4-12.4); Monocytes # 1.5 K/mcL (0.0-1.3); Monocytes % 13.4 %; Neutrophils # 8.6 K/mcL (1.6-8.9); Platelet Count 265 K/mcL (140-400); Red Blood Count 2.79 M/mcL (3.82-4.97); Red Cell Distribution Width 16.6 % (11.5-14.5); Segmented Neutrophils % 77.6 %; White Blood Count 11.1 K/mcL (4.3-11.1)
[2021-05-27 03:49] LABS: Calcium 8.6 mg/dL (8.6-10.3); Potassium 3.9 mEq/L (3.5-5.1)
[2021-05-27] MEDS: *HR* OxyCODONE Immed Rel 5 MG TABLET PO PRN ×2 (05:02→20:51)
[2021-05-27 07:23] LABS: Influenza A PCR Negative (Negative); Influenza B PCR Negative (Negative); Resp. Syncytial Virus PCR Negative (Negative); SARS-CoV-2 by PCR (In House) Negative (Negative)
[2021-05-27] MEDS: hydrALAZINE 25 MG TABLET PO SCH ×3 (09:55→20:38)
[2021-05-27] MEDS: cefTRIAXone 1,000 MG in 0.9 % Sodium Chloride Mini Bag 100 ML IVPB SCH (09:55)
[2021-05-27] MEDS: Aspirin 81 MG TAB.CHEW PO SCH (09:55)
[2021-05-27] MEDS: Apixaban 5 MG TABLET PO SCH ×2 (09:56→20:38)
[2021-05-27] MEDS: Ranolazine 500 MG TAB.ER.12H PO SCH ×2 (09:56→20:39)
[2021-05-27] MEDS: carvediloL 25 MG TABLET PO SCH ×2 (10:00→17:43)
[2021-05-27] MEDS: Calcium Acetate 667 MG CAPSULE PO SCH ×3 (10:00→17:43)
[2021-05-27] MEDS: *HR* HYDROcodone/Acet 5/325 mg TABLET PO PRN (17:47)
[2021-05-27] MEDS: Melatonin 3 MG TABLET PO PRN (20:39)
[2021-05-27] MEDS: Gabapentin 300 MG CAPSULE PO SCH (20:39)
[2021-05-28] MEDS: *HR* HYDROcodone/Acet 5/325 mg TABLET PO PRN ×2 (02:22→09:08)
[2021-05-28 05:21] LABS: Basophils % 0.4 %; Eosinophils # 0.3 K/mcL (0.0-0.6); Eosinophils % 2.3 %; Hematocrit 27.8 % (35.3-44.9); Hemoglobin 8.3 g/dL (11.5-15.4); Immature Granulocytes % 0.6 % (0-4); Lymphocytes # 0.8 K/mcL (0.6-4.6); Lymphocytes % 7.3 %; Mean Corpuscular HGB Conc 29.9 g/dL (31.6-35.5); Mean Corpuscular Volume 103.7 fL (83.0-100.0); Mean Platelet Volume 10.1 fL (9.4-12.4); Monocytes # 1.3 K/mcL (0.0-1.3); Monocytes % 12.3 %; Neutrophils # 8.4 K/mcL (1.6-8.9); Platelet Count 246 K/mcL (140-400); Red Blood Count 2.68 M/mcL (3.82-4.97); Red Cell Distribution Width 16.4 % (11.5-14.5); Segmented Neutrophils % 77.1 %; White Blood Count 10.9 K/mcL (4.3-11.1)
[2021-05-28 05:31] LABS: Calcium 8.7 mg/dL (8.6-10.3)
[2021-05-28] MEDS ORDERED: 0.9 % Sodium Chloride 250 ML IVC PRN (07:34)
[2021-05-28] MEDS: carvediloL 25 MG TABLET PO SCH ×2 (09:10→17:56)
[2021-05-28] MEDS: Aspirin 81 MG TAB.CHEW PO SCH (09:10)
[2021-05-28] MEDS: Apixaban 5 MG TABLET PO SCH ×2 (09:10→20:10)
[2021-05-28] MEDS: cefTRIAXone 1,000 MG in 0.9 % Sodium Chloride Mini Bag 100 ML IVPB SCH (09:11)
[2021-05-28] MEDS: Calcium Acetate 667 MG CAPSULE PO SCH ×3 (09:11→17:56)
[2021-05-28] MEDS: Ranolazine 500 MG TAB.ER.12H PO SCH ×2 (09:11→20:11)
[2021-05-28] MEDS: hydrALAZINE 25 MG TABLET PO SCH ×3 (09:11→20:10)
[2021-05-28] MEDS: *HR* OxyCODONE Immed Rel 5 MG TABLET PO PRN (13:40)
[2021-05-28] MEDS ORDERED: Vancomycin 500 MG in 0.9 % Sodium Chloride Mini Bag 100 ML IVPB ONE (17:00)
[2021-05-28] MEDS: Gabapentin 300 MG CAPSULE PO SCH (20:11)
[2021-05-28] MEDS: Erythromycin OPTH Oint RIGHT EYE SCH (22:37)
[2021-05-29] MEDS: *HR* HYDROcodone/Acet 5/325 mg TABLET PO PRN ×5 (00:38→23:33)
[2021-05-29] MEDS: Apixaban 5 MG TABLET PO SCH ×2 (08:43→21:03)
[2021-05-29] MEDS: carvediloL 25 MG TABLET PO SCH ×2 (08:43→16:51)
[2021-05-29] MEDS: Aspirin 81 MG TAB.CHEW PO SCH (08:43)
[2021-05-29] MEDS: Ranolazine 500 MG TAB.ER.12H PO SCH ×2 (08:43→21:04)
[2021-05-29] MEDS: hydrALAZINE 25 MG TABLET PO SCH ×3 (08:43→21:04)
[2021-05-29] MEDS: Calcium Acetate 667 MG CAPSULE PO SCH ×3 (08:43→16:51)
[2021-05-29] MEDS: Erythromycin OPTH Oint RIGHT EYE SCH ×3 (08:44→21:04)
[2021-05-29] MEDS: *HR* OxyCODONE Immed Rel 5 MG TABLET PO PRN (21:04)
[2021-05-29] MEDS: Gabapentin 300 MG CAPSULE PO SCH (21:04)
[2021-05-29] MEDS: Melatonin 3 MG TABLET PO PRN (23:33)
[2021-05-30 03:58] LABS: Basophils % 0.2 %; Eosinophils # 0.3 K/mcL (0.0-0.6); Eosinophils % 1.9 %; Hematocrit 26.8 % (35.3-44.9); Hemoglobin 7.8 g/dL (11.5-15.4); Immature Granulocytes % 0.8 % (0-4); Lymphocytes # 0.6 K/mcL (0.6-4.6); Mean Corpuscular HGB Conc 29.1 g/dL (31.6-35.5); Mean Corpuscular Volume 103.1 fL (83.0-100.0); Mean Platelet Volume 10.4 fL (9.4-12.4); Monocytes # 1.8 K/mcL (0.0-1.3); Monocytes % 11.8 %; Neutrophils # 12.1 K/mcL (1.6-8.9); Nucleated Red Blood Cells 0.1 /100 WBC (0); Platelet Count 288 K/mcL (140-400); Red Cell Distribution Width 16.3 % (11.5-14.5); Segmented Neutrophils % 81.3 %
[2021-05-30 04:11] LABS: Magnesium 1.8 mg/dL (1.6-2.6); Phosphorous 4.2 mg/dL (2.7-4.5); Potassium 4.5 mEq/L (3.5-5.1)
[2021-05-30] MEDS: Aspirin 81 MG TAB.CHEW PO SCH (08:18)
[2021-05-30] MEDS: Apixaban 5 MG TABLET PO SCH (08:18)
[2021-05-30] MEDS: Ranolazine 500 MG TAB.ER.12H PO SCH ×2 (08:18→21:53)
[2021-05-30] MEDS: Calcium Acetate 667 MG CAPSULE PO SCH ×3 (08:18→16:26)
[2021-05-30] MEDS: hydrALAZINE 25 MG TABLET PO SCH ×3 (08:18→21:53)
[2021-05-30] MEDS: *HR* OxyCODONE Immed Rel 5 MG TABLET PO PRN ×2 (08:18→21:53)
[2021-05-30] MEDS: carvediloL 25 MG TABLET PO SCH ×2 (08:18→16:26)
[2021-05-30] MEDS: Erythromycin OPTH Oint RIGHT EYE SCH ×3 (08:20→21:53)
[2021-05-30] MEDS: *HR* HYDROcodone/Acet 5/325 mg TABLET PO PRN (12:25)
[2021-05-30] MEDS: Melatonin 3 MG TABLET PO PRN (21:53)
[2021-05-30] MEDS: Gabapentin 300 MG CAPSULE PO SCH (21:53)
[2021-05-31 00:46] LABS: Basophils % 0.3 %; Eosinophils # 0.2 K/mcL (0.0-0.6); Eosinophils % 1.7 %; Hematocrit 24.8 % (35.3-44.9); Hemoglobin 7.4 g/dL (11.5-15.4); Immature Granulocytes % 0.9 % (0-4); Lymphocytes # 0.7 K/mcL (0.6-4.6); Lymphocytes % 5.1 %; Mean Corpuscular HGB Conc 29.8 g/dL (31.6-35.5); Mean Corpuscular Hemoglobin 30.2 pg (28.0-33.3); Mean Corpuscular Volume 101.2 fL (83.0-100.0); Mean Platelet Volume 9.9 fL (9.4-12.4); Monocytes # 1.7 K/mcL (0.0-1.3); Monocytes % 12.5 %; Neutrophils # 10.9 K/mcL (1.6-8.9); Platelet Count 263 K/mcL (140-400); Red Blood Count 2.45 M/mcL (3.82-4.97); Red Cell Distribution Width 16.2 % (11.5-14.5); Segmented Neutrophils % 79.5 %; White Blood Count 13.7 K/mcL (4.3-11.1)
[2021-05-31 01:07] LABS: Calcium 9.5 mg/dL (8.6-10.3); Magnesium 1.9 mg/dL (1.6-2.6); Potassium 4.8 mEq/L (3.5-5.1)
[2021-05-31] MEDS: *HR* HYDROcodone/Acet 5/325 mg TABLET PO PRN ×2 (02:31→21:46)
[2021-05-31] MEDS: *HR* OxyCODONE Immed Rel 5 MG TABLET PO PRN (04:10)
[2021-05-31] MEDS ORDERED: 0.9 % Sodium Chloride 250 ML IVC PRN (07:57)
[2021-05-31] MEDS ORDERED: 0.9 % Sodium Chloride 1,000 ML PRIME SCH ×2 (08:00→17:03)
[2021-05-31] MEDS: carvediloL 25 MG TABLET PO SCH (10:39)
[2021-05-31] MEDS: Ranolazine 500 MG TAB.ER.12H PO SCH ×2 (10:39→21:46)
[2021-05-31] MEDS: Aspirin 81 MG TAB.CHEW PO SCH (10:39)
[2021-05-31] MEDS: hydrALAZINE 25 MG TABLET PO SCH ×3 (10:40→21:47)
[2021-05-31] MEDS: Calcium Acetate 667 MG CAPSULE PO SCH ×2 (10:50→17:00)
[2021-05-31] MEDS: Erythromycin OPTH Oint RIGHT EYE SCH ×3 (10:50→21:00)
[2021-05-31 11:55] LABS: Hepatitis B Surface Antigen Nonreactive (Nonreactive)
[2021-05-31] MEDS ORDERED: *HR* Norepinephrine 4 MG/4 ML VIAL IVC ONE (12:41)
[2021-05-31] MEDS ORDERED: *HR* Vasopressin 20 UNIT/ML VIAL ONE (12:41)
[2021-05-31] MEDS ORDERED: *HR* FentaNYL (PF) 100 MCG/2 ML VIAL ONE (12:44)
[2021-05-31] MEDS ORDERED: *HR* Remifentanil 2 MG VIAL IVP ONE (12:44)
[2021-05-31] MEDS ORDERED: *HR* Propofol 200 MG/20 ML VIAL IVP ONE (12:44)
[2021-05-31] MEDS ORDERED: *HR* Rocuronium Bromide 50 MG/5 ML VIAL ONE (12:45)
[2021-05-31] MEDS ORDERED: Lidocaine -MPF 2% 5 ML VIAL ONE (12:45)
[2021-05-31 12:47] LABS: Hepatitis B Surface Antibody 8.45 mIU/mL
[2021-05-31] MEDS ORDERED: Heparin 1,000 UNITS/500 mL 500 ML ONE (12:52)
[2021-05-31] MEDS ORDERED: Bupivacaine/EPI 1:200k 0.25% 50 ML VIAL ONE (12:53)
[2021-05-31] MEDS ORDERED: Vancomycin 1,000 MG VIAL ONE ×2 (13:08)
[2021-05-31] MEDS ORDERED: Polymyxin B Sulfate 500,000 UNIT, Sodium Chloride IRRigation 1,000 ML IR ONE (13:15)
[2021-05-31 14:34] LABS: ABG Base Excess -1 mEq/L (-2 to 3); ABG Chloride 95 mEq/L (98-107); ABG Glucose 173 mg/dL (60-95); ABG HCO3 24 mEq/L (21-27); ABG Ionized Calcium 1.22 mmol/L (1.15-1.35); ABG Oxygen Saturation 100 % (95-98); ABG PCO2 39 mmHg (35-45); ABG PO2 175 mmHg (85-104); ABG TCO2 25 mEq/L (20-26)
[2021-05-31] MEDS ORDERED: SODIUM CHLORIDE 0.9% IVPB ONE (15:17)
[2021-05-31] MEDS ORDERED: DESMOPRESSIN ACETATE IVPB ONE (15:17)
[2021-05-31] MEDS ORDERED: Vancomycin 500 MG in 0.9 % Sodium Chloride Mini Bag 100 ML IVPB ONE (16:00)
[2021-05-31 16:21] LABS: INR 1.8; Prothrombin Time 20.2 Seconds (9.4-12.1)
[2021-05-31 16:26] LABS: Fibrinogen > 1000 mg/dL (169-393)
[2021-05-31] MEDS ORDERED: Ondansetron 4 MG/2 ML VIAL ONE (16:58)
[2021-05-31] MEDS ORDERED: Norepinephrine 4 MG/254 ML IV.SOLN IVC SCH (17:00)
[2021-05-31] MEDS ORDERED: D5% in Water 1,000 ML IVC PRN (17:03)
[2021-05-31] MEDS ORDERED: Ondansetron 4 MG/2 ML VIAL IVP PRN (17:03)
[2021-05-31] MEDS ORDERED: Acetaminophen 325 MG TABLET PO PRN (17:03)
[2021-05-31] MEDS ORDERED: Ipratropium/Albuterol Neb 3 ML IH PRN (17:03)
[2021-05-31] MEDS ORDERED: Dextrose Gel 15 GM/37.5 ML TUBE PO PRN ×2 (17:03)
[2021-05-31] MEDS ORDERED: *HR* Dextrose 50 % in Water (Syg) 50 ML SYRINGE IVP PRN (17:03)
[2021-05-31] MEDS ORDERED: Neostigmine Methylsulfate 3 MG/3 ML SYRINGE ONE (17:11)
[2021-05-31] MEDS ORDERED: *HR* HYDROmorphone (PF) 1 MG/ML SYRINGE IVP ONE ×2 (17:34→18:09)
[2021-05-31] MEDS ORDERED: Acetaminophen IV 1,000 MG/100 ML BAG IVPB ONE ×2 (17:45→18:11)
[2021-05-31] MEDS ORDERED: 0.9 % Sodium Chloride 500 ML ONE (19:11)
[2021-05-31 19:47] LABS: Basophils % 0.3 %; Eosinophils # 0.2 K/mcL (0.0-0.6); Eosinophils % 1.3 %; Hematocrit 23.4 % (35.3-44.9); Immature Granulocytes % 1.1 % (0-4); Lymphocytes # 0.6 K/mcL (0.6-4.6); Lymphocytes % 4.4 %; Mean Corpuscular HGB Conc 29.9 g/dL (31.6-35.5); Mean Corpuscular Hemoglobin 29.7 pg (28.0-33.3); Mean Corpuscular Volume 99.2 fL (83.0-100.0); Mean Platelet Volume 10.1 fL (9.4-12.4); Monocytes # 1.5 K/mcL (0.0-1.3); Monocytes % 11.4 %; Platelet Count 247 K/mcL (140-400); Red Blood Count 2.36 M/mcL (3.82-4.97); Red Cell Distribution Width 17.2 % (11.5-14.5); Segmented Neutrophils % 81.5 %; White Blood Count 13.5 K/mcL (4.3-11.1)
[2021-05-31 19:55] LABS: Calcium 8.9 mg/dL (8.6-10.3); Potassium 5.2 mEq/L (3.5-5.1)
[2021-05-31] MEDS: Gabapentin 300 MG CAPSULE PO SCH (21:46)
[2021-05-31] MEDS: 0.9 % Sodium Chloride 250 ML IVC PRN ×2 (22:45→23:05)
[2021-06-01] MEDS ORDERED: Ringers Solution, Lactated 1,000 ML ONE (01:18)
[2021-06-01] MEDS ORDERED: Ringers Solution, Lactated 500 ML IVC ONE (01:28)
[2021-06-01] MEDS: *HR* HYDROcodone/Acet 5/325 mg TABLET PO PRN ×3 (03:32→22:07)
[2021-06-01 06:29] LABS: VBG Ionized Calcium 1.17 mmol/L (1.15-1.35)
[2021-06-01 06:49] LABS: Calcium 8.8 mg/dL (8.6-10.3); Phosphorous 7.1 mg/dL (2.7-4.5); Potassium 5.5 mEq/L (3.5-5.1)
[2021-06-01 06:59] LABS: Basophils % 0.3 %; Eosinophils # 0.1 K/mcL (0.0-0.6); Immature Granulocytes % 0.8 % (0-4); Lymphocytes # 0.5 K/mcL (0.6-4.6); Lymphocytes % 4.4 %; Mean Corpuscular HGB Conc 30.4 g/dL (31.6-35.5); Mean Corpuscular Hemoglobin 30.2 pg (28.0-33.3); Mean Corpuscular Volume 99.1 fL (83.0-100.0); Mean Platelet Volume 10.3 fL (9.4-12.4); Monocytes # 1.1 K/mcL (0.0-1.3); Monocytes % 8.9 %; Neutrophils # 10.3 K/mcL (1.6-8.9); Platelet Count 246 K/mcL (140-400); Red Blood Count 2.32 M/mcL (3.82-4.97); Red Cell Distribution Width 17.6 % (11.5-14.5); Segmented Neutrophils % 84.6 %; White Blood Count 12.2 K/mcL (4.3-11.1)
[2021-06-01] MEDS ORDERED: 0.9 % Sodium Chloride 250 ML IVC PRN (07:34)
[2021-06-01] MEDS ORDERED: 0.9 % Sodium Chloride 1,000 ML PRIME SCH (07:45)
[2021-06-01] MEDS: *HR* OxyCODONE Immed Rel 5 MG TABLET PO PRN ×2 (09:15→16:59)
[2021-06-01] MEDS: hydrALAZINE 25 MG TABLET PO SCH ×4 (13:04→20:21)
[2021-06-01] MEDS: Calcium Acetate 667 MG CAPSULE PO SCH ×3 (13:04→16:59)
[2021-06-01] MEDS: Ranolazine 500 MG TAB.ER.12H PO SCH ×2 (13:04→20:21)
[2021-06-01] MEDS: carvediloL 25 MG TABLET PO SCH ×2 (13:04→16:59)
[2021-06-01] MEDS: Erythromycin OPTH Oint RIGHT EYE SCH ×3 (13:05→22:08)
[2021-06-01] MEDS ORDERED: Norepinephrine 4 MG/254 ML IV.SOLN IVC SCH (14:34)
[2021-06-01] MEDS: *HR* HYDROmorphone (PF) 1 MG/ML SYRINGE IVP PRN ×2 (14:47→20:21)
[2021-06-01] MEDS: Gabapentin 300 MG CAPSULE PO SCH (20:21)
[2021-06-02] MEDS: *HR* OxyCODONE Immed Rel 5 MG TABLET PO PRN ×3 (00:38→14:59)
[2021-06-02 03:25] LABS: Basophils % 0.3 %; Eosinophils # 0.2 K/mcL (0.0-0.6); Eosinophils % 1.3 %; Hematocrit 21.7 % (35.3-44.9); Hemoglobin 6.6 g/dL (11.5-15.4); Immature Granulocytes % 0.9 % (0-4); Lymphocytes # 0.7 K/mcL (0.6-4.6); Lymphocytes % 5.9 %; Mean Corpuscular HGB Conc 30.4 g/dL (31.6-35.5); Mean Corpuscular Hemoglobin 29.9 pg (28.0-33.3); Mean Corpuscular Volume 98.2 fL (83.0-100.0); Mean Platelet Volume 10.2 fL (9.4-12.4); Monocytes # 1.2 K/mcL (0.0-1.3); Monocytes % 10.1 %; Neutrophils # 9.6 K/mcL (1.6-8.9); Platelet Count 285 K/mcL (140-400); Red Blood Count 2.21 M/mcL (3.82-4.97); Red Cell Distribution Width 17.2 % (11.5-14.5); Segmented Neutrophils % 81.5 %; White Blood Count 11.7 K/mcL (4.3-11.1)
[2021-06-02] MEDS: *HR* HYDROcodone/Acet 5/325 mg TABLET PO PRN ×3 (03:34→17:54)
[2021-06-02 03:59] LABS: Troponin I 0.05 ng/mL (< 0.04)
[2021-06-02] MEDS: *HR* HYDROmorphone (PF) 1 MG/ML SYRINGE IVP PRN ×5 (04:27→22:09)
[2021-06-02] MEDS ORDERED: 0.9 % Sodium Chloride 250 ML IVC SCH (04:30)
[2021-06-02 05:34] LABS: Albumin 2.8 g/dL (3.5-5.7); Albumin/Globulin Ratio 0.9 (1.1-2.2); Bilirubin,Total 0.3 mg/dL (0.3-1.0); Calcium 8.5 mg/dL (8.6-10.3); Phosphorous 5.9 mg/dL (2.7-4.5); Potassium 4.2 mEq/L (3.5-5.1); Total Protein 5.8 g/dL (6.4-8.9)
[2021-06-02] MEDS ORDERED: 0.9 % Sodium Chloride 250 ML IVC PRN (08:28)
[2021-06-02] MEDS ORDERED: 0.9 % Sodium Chloride 1,000 ML PRIME SCH (08:30)
[2021-06-02] MEDS: Ranolazine 500 MG TAB.ER.12H PO SCH ×2 (08:54→20:00)
[2021-06-02] MEDS: Calcium Acetate 667 MG CAPSULE PO SCH ×4 (08:54→17:51)
[2021-06-02] MEDS: Erythromycin OPTH Oint RIGHT EYE SCH ×3 (08:55→20:00)
[2021-06-02] MEDS: carvediloL 25 MG TABLET PO SCH ×2 (09:00→17:52)
[2021-06-02] MEDS: hydrALAZINE 25 MG TABLET PO SCH ×3 (12:19→20:00)
[2021-06-02 16:44] LABS: RBC,Pleural Fluid < 2000 RBC/mcL
[2021-06-02 17:04] LABS: Glucose,Pleural Fluid 182 mg/dL (No Ref Range); LDH,Pleural Fluid 144 Units/L (No Ref Range)
[2021-06-02 17:45] LABS: Appearance of Pleural Fl Hazy (Clear)
[2021-06-02 17:47] LABS: Basophils,Pleural Fluid 0 %; Eosinophils,Pleural Fluid 0 %
[2021-06-02] MEDS: Gabapentin 300 MG CAPSULE PO SCH (20:00)
[2021-06-03] MEDS: *HR* OxyCODONE Immed Rel 5 MG TABLET PO PRN ×3 (00:48→13:58)
[2021-06-03 03:58] LABS: Basophils % 0.4 %; Eosinophils # 0.1 K/mcL (0.0-0.6); Eosinophils % 1.4 %; Hematocrit 24.7 % (35.3-44.9); Hemoglobin 7.7 g/dL (11.5-15.4); Immature Granulocytes % 1.1 % (0-4); Lymphocytes # 0.6 K/mcL (0.6-4.6); Lymphocytes % 5.6 %; Mean Corpuscular HGB Conc 31.2 g/dL (31.6-35.5); Mean Corpuscular Hemoglobin 30.3 pg (28.0-33.3); Mean Corpuscular Volume 97.2 fL (83.0-100.0); Mean Platelet Volume 9.8 fL (9.4-12.4); Monocytes # 1.1 K/mcL (0.0-1.3); Monocytes % 11.4 %; Platelet Count 306 K/mcL (140-400); Red Blood Count 2.54 M/mcL (3.82-4.97); Red Cell Distribution Width 17.7 % (11.5-14.5); Segmented Neutrophils % 80.1 %; White Blood Count 9.9 K/mcL (4.3-11.1)
[2021-06-03 04:21] LABS: Albumin 2.8 g/dL (3.5-5.7); Albumin/Globulin Ratio 0.9 (1.1-2.2); Bilirubin,Total 0.4 mg/dL (0.3-1.0); Calcium 8.7 mg/dL (8.6-10.3); Globulin 3.1 g/dL (2.4-3.5); Phosphorous 5.5 mg/dL (2.7-4.5); Potassium 3.8 mEq/L (3.5-5.1); Total Protein 5.9 g/dL (6.4-8.9)
[2021-06-03] MEDS: *HR* HYDROmorphone (PF) 1 MG/ML SYRINGE IVP PRN ×4 (04:35→22:03)
[2021-06-03] MEDS: *HR* HYDROcodone/Acet 5/325 mg TABLET PO PRN ×3 (06:32→20:22)
[2021-06-03] MEDS: carvediloL 25 MG TABLET PO SCH ×3 (07:27→16:41)
[2021-06-03] MEDS: Calcium Acetate 667 MG CAPSULE PO SCH ×3 (07:40→16:41)
[2021-06-03] MEDS: Erythromycin OPTH Oint RIGHT EYE SCH ×3 (07:41→20:25)
[2021-06-03] MEDS: Ranolazine 500 MG TAB.ER.12H PO SCH ×2 (07:41→20:22)
[2021-06-03] MEDS: hydrALAZINE 25 MG TABLET PO SCH ×3 (07:41→20:21)
[2021-06-03] MEDS: Gabapentin 300 MG CAPSULE PO SCH (20:21)
[2021-06-04] MEDS: *HR* HYDROcodone/Acet 5/325 mg TABLET PO PRN ×3 (02:36→15:08)
[2021-06-04] MEDS: *HR* HYDROmorphone (PF) 1 MG/ML SYRINGE IVP PRN ×2 (04:44→20:28)
[2021-06-04] MEDS: Ranolazine 500 MG TAB.ER.12H PO SCH ×2 (07:36→20:27)
[2021-06-04] MEDS: Calcium Acetate 667 MG CAPSULE PO SCH ×3 (07:37→15:08)
[2021-06-04] MEDS: carvediloL 25 MG TABLET PO SCH ×2 (07:37→15:08)
[2021-06-04] MEDS: hydrALAZINE 25 MG TABLET PO SCH ×3 (07:37→20:27)
[2021-06-04] MEDS: *HR* OxyCODONE Immed Rel 5 MG TABLET PO PRN (07:37)
[2021-06-04] MEDS: Erythromycin OPTH Oint RIGHT EYE SCH ×3 (07:43→20:33)
[2021-06-04] MEDS ORDERED: 0.9 % Sodium Chloride 250 ML IVC PRN (07:44)
[2021-06-04 08:04] LABS: Basophils % 0.3 %; Eosinophils # 0.2 K/mcL (0.0-0.6); Eosinophils % 1.6 %; Hematocrit 25.1 % (35.3-44.9); Hemoglobin 7.9 g/dL (11.5-15.4); Immature Granulocytes % 2.3 % (0-4); Lymphocytes # 0.7 K/mcL (0.6-4.6); Lymphocytes % 7.2 %; Mean Corpuscular HGB Conc 31.5 g/dL (31.6-35.5); Mean Corpuscular Hemoglobin 30.6 pg (28.0-33.3); Mean Corpuscular Volume 97.3 fL (83.0-100.0); Mean Platelet Volume 9.6 fL (9.4-12.4); Monocytes # 1.1 K/mcL (0.0-1.3); Monocytes % 11.7 %; Neutrophils # 7.3 K/mcL (1.6-8.9); Platelet Count 305 K/mcL (140-400); Red Blood Count 2.58 M/mcL (3.82-4.97); Segmented Neutrophils % 76.9 %; White Blood Count 9.5 K/mcL (4.3-11.1)
[2021-06-04 08:13] LABS: Albumin 2.8 g/dL (3.5-5.7); Albumin/Globulin Ratio 0.9 (1.1-2.2); Bilirubin,Total 0.4 mg/dL (0.3-1.0); Calcium 8.8 mg/dL (8.6-10.3); Globulin 3.1 g/dL (2.4-3.5); Magnesium 2.1 mg/dL (1.6-2.6); Phosphorous 5.6 mg/dL (2.7-4.5); Potassium 4.3 mEq/L (3.5-5.1); Total Protein 5.9 g/dL (6.4-8.9)
[2021-06-04] MEDS ORDERED: Albumin 25% 25gram/100mL 25 GM/100 ML IV.SOLN IVPB ONE (11:25)
[2021-06-04] MEDS ORDERED: Vancomycin 1,500 MG/265 ML IV.SOLN IVPB ONE (16:00)
[2021-06-04] MEDS: Gabapentin 300 MG CAPSULE PO SCH (20:26)
[2021-06-04] MEDS: Apixaban 5 MG TABLET PO SCH (20:27)
[2021-06-04] MEDS ORDERED: hydrALAZINE 25 MG TABLET PO SCH (21:00)
[2021-06-04] MEDS: Latanoprost 2.5 ML BOTTLE RIGHT EYE SCH (22:52)
[2021-06-04] MEDS: Dorzolamide OPTH 10 ML BOTTLE RIGHT EYE SCH (22:52)
[2021-06-04] MEDS: Atropine 1% Opth Drops 100 DROP/5 ML BOTTLE RIGHT EYE SCH (22:53)
[2021-06-05] MEDS: *HR* OxyCODONE Immed Rel 5 MG TABLET PO PRN ×2 (00:04→21:01)
[2021-06-05] MEDS: *HR* HYDROmorphone (PF) 1 MG/ML SYRINGE IVP PRN ×3 (02:42→23:11)
[2021-06-05] MEDS: *HR* HYDROcodone/Acet 5/325 mg TABLET PO PRN ×2 (04:53→16:44)
[2021-06-05 04:57] LABS: Albumin 2.8 g/dL (3.5-5.7); Albumin/Globulin Ratio 0.9 (1.1-2.2); Bilirubin,Total 0.4 mg/dL (0.3-1.0); Calcium 8.6 mg/dL (8.6-10.3); Globulin 3.2 g/dL (2.4-3.5); Magnesium 1.9 mg/dL (1.6-2.6); Phosphorous 3.5 mg/dL (2.7-4.5); Potassium 4.3 mEq/L (3.5-5.1)
[2021-06-05 05:12] LABS: Basophils # 0.1 K/mcL (0.0-0.2); Basophils % 0.5 %; Eosinophils # 0.1 K/mcL (0.0-0.6); Eosinophils % 1.4 %; Hematocrit 26.2 % (35.3-44.9); Immature Granulocytes % 3.2 % (0-4); Lymphocytes # 0.7 K/mcL (0.6-4.6); Lymphocytes % 7.1 %; Mean Corpuscular HGB Conc 30.5 g/dL (31.6-35.5); Mean Corpuscular Hemoglobin 29.5 pg (28.0-33.3); Mean Corpuscular Volume 96.7 fL (83.0-100.0); Mean Platelet Volume 9.6 fL (9.4-12.4); Monocytes # 1.1 K/mcL (0.0-1.3); Monocytes % 10.8 %; Neutrophils # 7.5 K/mcL (1.6-8.9); Platelet Count 335 K/mcL (140-400); Red Blood Count 2.71 M/mcL (3.82-4.97); Red Cell Distribution Width 16.7 % (11.5-14.5); White Blood Count 9.8 K/mcL (4.3-11.1)
[2021-06-05] MEDS: Folic Acid 1 MG TABLET PO SCH (08:33)
[2021-06-05] MEDS: Ranolazine 500 MG TAB.ER.12H PO SCH ×2 (08:33→20:59)
[2021-06-05] MEDS: acetaZOLAMIDE 250 MG TABLET PO SCH (08:33)
[2021-06-05] MEDS: Calcium Acetate 667 MG CAPSULE PO SCH ×3 (08:33→16:44)
[2021-06-05] MEDS: carvediloL 25 MG TABLET PO SCH ×2 (08:34→16:44)
[2021-06-05] MEDS: Cholecalciferol (D-3) 1,000 UNIT (25MCG) TABLET PO SCH (08:34)
[2021-06-05] MEDS: Apixaban 5 MG TABLET PO SCH ×2 (08:34→20:59)
[2021-06-05] MEDS: hydrALAZINE 25 MG TABLET PO SCH ×3 (08:34→21:01)
[2021-06-05] MEDS: Dorzolamide OPTH 10 ML BOTTLE RIGHT EYE SCH ×3 (08:37→21:02)
[2021-06-05] MEDS: Erythromycin OPTH Oint RIGHT EYE SCH ×3 (08:38→21:02)
[2021-06-05] MEDS: Atropine 1% Opth Drops 100 DROP/5 ML BOTTLE RIGHT EYE SCH ×3 (08:38→21:02)
[2021-06-05] MEDS: Gabapentin 300 MG CAPSULE PO SCH (20:59)
[2021-06-05] MEDS: Latanoprost 2.5 ML BOTTLE RIGHT EYE SCH (21:01)
[2021-06-06] MEDS: *HR* HYDROmorphone (PF) 1 MG/ML SYRINGE IVP PRN ×3 (06:08→23:53)
[2021-06-06 06:32] LABS: Basophils # 0.1 K/mcL (0.0-0.2); Basophils % 0.6 %; Eosinophils # 0.2 K/mcL (0.0-0.6); Eosinophils % 1.6 %; Hematocrit 25.8 % (35.3-44.9); Hemoglobin 7.9 g/dL (11.5-15.4); Immature Granulocytes % 4.3 % (0-4); Lymphocytes # 0.8 K/mcL (0.6-4.6); Lymphocytes % 7.7 %; Mean Corpuscular HGB Conc 30.6 g/dL (31.6-35.5); Mean Corpuscular Hemoglobin 29.5 pg (28.0-33.3); Mean Corpuscular Volume 96.3 fL (83.0-100.0); Mean Platelet Volume 9.2 fL (9.4-12.4); Monocytes # 1.1 K/mcL (0.0-1.3); Monocytes % 10.5 %; Neutrophils # 7.8 K/mcL (1.6-8.9); Platelet Count 328 K/mcL (140-400); Red Blood Count 2.68 M/mcL (3.82-4.97); Red Cell Distribution Width 16.4 % (11.5-14.5); Segmented Neutrophils % 75.3 %; White Blood Count 10.3 K/mcL (4.3-11.1)
[2021-06-06 06:54] LABS: Albumin 2.9 g/dL (3.5-5.7); Bilirubin,Total 0.4 mg/dL (0.3-1.0); Calcium 8.9 mg/dL (8.6-10.3); Magnesium 1.9 mg/dL (1.6-2.6); Phosphorous 3.8 mg/dL (2.7-4.5); Potassium 4.6 mEq/L (3.5-5.1); Total Protein 5.9 g/dL (6.4-8.9)
[2021-06-06] MEDS: carvediloL 25 MG TABLET PO SCH ×2 (09:26→16:33)
[2021-06-06] MEDS: Ranolazine 500 MG TAB.ER.12H PO SCH ×2 (09:26→19:30)
[2021-06-06] MEDS: Calcium Acetate 667 MG CAPSULE PO SCH ×3 (09:26→16:33)
[2021-06-06] MEDS: hydrALAZINE 25 MG TABLET PO SCH ×3 (09:27→19:30)
[2021-06-06] MEDS: Cholecalciferol (D-3) 1,000 UNIT (25MCG) TABLET PO SCH (09:27)
[2021-06-06] MEDS: Apixaban 5 MG TABLET PO SCH ×2 (09:28→19:30)
[2021-06-06] MEDS: *HR* OxyCODONE Immed Rel 5 MG TABLET PO PRN ×2 (09:28→22:04)
[2021-06-06] MEDS: Folic Acid 1 MG TABLET PO SCH (09:28)
[2021-06-06] MEDS: Erythromycin OPTH Oint RIGHT EYE SCH ×3 (09:29→19:30)
[2021-06-06] MEDS: Atropine 1% Opth Drops 100 DROP/5 ML BOTTLE RIGHT EYE SCH ×3 (09:29→19:31)
[2021-06-06] MEDS: Dorzolamide OPTH 10 ML BOTTLE RIGHT EYE SCH ×3 (09:30→19:30)
[2021-06-06] MEDS: acetaZOLAMIDE 250 MG TABLET PO SCH (12:45)
[2021-06-06] MEDS: *HR* HYDROcodone/Acet 5/325 mg TABLET PO PRN (16:33)
[2021-06-06] MEDS: Gabapentin 300 MG CAPSULE PO SCH (19:30)
[2021-06-06] MEDS: Latanoprost 2.5 ML BOTTLE RIGHT EYE SCH (19:30)
[2021-06-07] MEDS: *HR* HYDROcodone/Acet 5/325 mg TABLET PO PRN ×4 (00:55→20:18)
[2021-06-07] MEDS: *HR* OxyCODONE Immed Rel 5 MG TABLET PO PRN ×2 (05:28→22:38)
[2021-06-07 06:18] LABS: Basophils # 0.1 K/mcL (0.0-0.2); Basophils % 0.7 %; Eosinophils # 0.3 K/mcL (0.0-0.6); Hematocrit 26.7 % (35.3-44.9); Hemoglobin 8.3 g/dL (11.5-15.4); Immature Granulocytes % 5.7 % (0-4); Lymphocytes # 0.8 K/mcL (0.6-4.6); Lymphocytes % 6.2 %; Mean Corpuscular HGB Conc 31.1 g/dL (31.6-35.5); Mean Corpuscular Hemoglobin 30.3 pg (28.0-33.3); Mean Corpuscular Volume 97.4 fL (83.0-100.0); Mean Platelet Volume 9.6 fL (9.4-12.4); Monocytes % 8.2 %; Neutrophils # 9.5 K/mcL (1.6-8.9); Platelet Count 339 K/mcL (140-400); Red Blood Count 2.74 M/mcL (3.82-4.97); Red Cell Distribution Width 16.1 % (11.5-14.5); Segmented Neutrophils % 77.2 %; White Blood Count 12.3 K/mcL (4.3-11.1)
[2021-06-07 06:39] LABS: Albumin 2.9 g/dL (3.5-5.7); Bilirubin,Total 0.3 mg/dL (0.3-1.0); Calcium 8.8 mg/dL (8.6-10.3); Phosphorous 4.5 mg/dL (2.7-4.5); Potassium 5.2 mEq/L (3.5-5.1); Total Protein 5.9 g/dL (6.4-8.9)
[2021-06-07 06:47] LABS: Anisocytosis 1+ (Not Present)
[2021-06-07 06:48] LABS: Platelet Estimate Normal (Normal)
[2021-06-07] MEDS ORDERED: 0.9 % Sodium Chloride 250 ML IVC PRN (07:22)
[2021-06-07] MEDS: Ranolazine 500 MG TAB.ER.12H PO SCH ×2 (08:00→20:19)
[2021-06-07] MEDS: Calcium Acetate 667 MG CAPSULE PO SCH ×3 (08:01→15:58)
[2021-06-07] MEDS: acetaZOLAMIDE 250 MG TABLET PO SCH (08:01)
[2021-06-07] MEDS: Folic Acid 1 MG TABLET PO SCH (08:01)
[2021-06-07] MEDS: Apixaban 5 MG TABLET PO SCH ×2 (08:02→20:19)
[2021-06-07] MEDS: Dorzolamide OPTH 10 ML BOTTLE RIGHT EYE SCH ×4 (08:06→20:20)
[2021-06-07] MEDS: Atropine 1% Opth Drops 100 DROP/5 ML BOTTLE RIGHT EYE SCH ×4 (08:06→20:20)
[2021-06-07] MEDS: Erythromycin OPTH Oint RIGHT EYE SCH ×4 (08:07→20:21)
[2021-06-07] MEDS: Cholecalciferol (D-3) 1,000 UNIT (25MCG) TABLET PO SCH (08:17)
[2021-06-07] MEDS: carvediloL 25 MG TABLET PO SCH ×2 (08:58→15:58)
[2021-06-07] MEDS: hydrALAZINE 25 MG TABLET PO SCH ×3 (08:59→20:19)
[2021-06-07] MEDS: Gabapentin 300 MG CAPSULE PO SCH (20:19)
[2021-06-07] MEDS: Latanoprost 2.5 ML BOTTLE RIGHT EYE SCH (20:20)
[2021-06-08] MEDS: *HR* HYDROmorphone (PF) 1 MG/ML SYRINGE IVP PRN (01:36)
[2021-06-08 08:34] LABS: Eosinophils # 0.2 K/mcL (0.0-0.6); Hematocrit 27.5 % (35.3-44.9); Hemoglobin 8.2 g/dL (11.5-15.4); Lymphocytes # 0.7 K/mcL (0.6-4.6); Mean Corpuscular HGB Conc 29.8 g/dL (31.6-35.5); Mean Corpuscular Hemoglobin 29.4 pg (28.0-33.3); Mean Corpuscular Volume 98.6 fL (83.0-100.0); Mean Platelet Volume 9.7 fL (9.4-12.4); Platelet Count 303 K/mcL (140-400); Red Blood Count 2.79 M/mcL (3.82-4.97); Red Cell Distribution Width 16.1 % (11.5-14.5)
[2021-06-08] MEDS: Folic Acid 1 MG TABLET PO SCH (08:46)
[2021-06-08] MEDS: Ranolazine 500 MG TAB.ER.12H PO SCH (08:46)
[2021-06-08] MEDS: hydrALAZINE 25 MG TABLET PO SCH (08:46)
[2021-06-08] MEDS: carvediloL 25 MG TABLET PO SCH (08:46)
[2021-06-08] MEDS: Cholecalciferol (D-3) 1,000 UNIT (25MCG) TABLET PO SCH (08:46)
[2021-06-08] MEDS: Apixaban 5 MG TABLET PO SCH (08:46)
[2021-06-08] MEDS: acetaZOLAMIDE 250 MG TABLET PO SCH (08:46)
[2021-06-08] MEDS: Calcium Acetate 667 MG CAPSULE PO SCH ×2 (08:46→11:23)
[2021-06-08] MEDS: Dorzolamide OPTH 10 ML BOTTLE RIGHT EYE SCH (08:47)
[2021-06-08] MEDS: Atropine 1% Opth Drops 100 DROP/5 ML BOTTLE RIGHT EYE SCH (08:47)
[2021-06-08] MEDS: Erythromycin OPTH Oint RIGHT EYE SCH (08:48)
[2021-06-08 08:54] LABS: Albumin 2.9 g/dL (3.5-5.7); Bilirubin,Total 0.3 mg/dL (0.3-1.0); Calcium 8.9 mg/dL (8.6-10.3); Globulin 2.9 g/dL (2.4-3.5); Potassium 4.5 mEq/L (3.5-5.1); Total Protein 5.8 g/dL (6.4-8.9)
[2021-06-08 09:23] LABS: Monocytes # 0.4 K/mcL (0.0-1.3); Neutrophils # 7.6 K/mcL (1.6-8.9)
[2021-06-08 09:26] LABS: Anisocytosis 1+ (Not Present); Hypochromasia Present (Not Present); Platelet Estimate Normal (Normal)
[2021-06-08 09:29] LABS: Reactive Lymphocytes Present (Not Present)
[2021-06-08] MEDS: *HR* OxyCODONE Immed Rel 5 MG TABLET PO PRN (11:23)
[2021-06-08 12:06] VITALS: BP 106/54; PULSE 67; TEMP 97.3; O2SAT 95
== END 2021-06-08 13:51 | DRG 710 ==
LOC: 3NENU → SUATTDRO 22:02 → 2NNU 05-31 21:12 → 2ANU 06-03 15:20
PROVIDERS: ADMIT Internal Medicine; ATTEND Hospitalist

== ENCOUNTER 2021-09-25 16:12 | Inpatient (IN) ==
[2021-09-25 17:32] LABS: Basophils # 0.1 K/mcL (0.0-0.2); Basophils % 0.5 %; Red Blood Count 2.33 M/mcL (3.82-4.97); Red Cell Distribution Width 17.7 % (11.5-14.5)
[2021-09-25 17:34] LABS: Eosinophils # 0.5 K/mcL (0.0-0.6); Eosinophils % 4.6 %; Hematocrit 22.8 % (35.3-44.9); Hemoglobin 6.5 g/dL (11.5-15.4); Immature Granulocytes % 2.4 % (0-4); Lymphocytes # 0.9 K/mcL (0.6-4.6); Mean Corpuscular HGB Conc 28.5 g/dL (31.6-35.5); Mean Corpuscular Hemoglobin 27.9 pg (28.0-33.3); Mean Corpuscular Volume 97.9 fL (83.0-100.0); Mean Platelet Volume 9.1 fL (9.4-12.4); Monocytes % 7.7 %; Platelet Count 503 K/mcL (140-400); Segmented Neutrophils % 76.8 %
[2021-09-25 17:50] LABS: INR 1.5; Prothrombin Time 16.7 Seconds (9.4-12.1)
[2021-09-25 17:51] LABS: Albumin/Globulin Ratio 0.8 (1.1-2.2); Bilirubin,Total 0.3 mg/dL (0.3-1.0); Calcium 9.5 mg/dL (8.6-10.3); Globulin 3.6 g/dL (2.4-3.5); Magnesium 2.1 mg/dL (1.6-2.6); Phosphorous 4.9 mg/dL (2.7-4.5); Potassium 6.4 mEq/L (3.5-5.1); Total Protein 6.6 g/dL (6.4-8.9)
[2021-09-25 17:53] LABS: Activated Partial Thrombo Time 35.1 Seconds (26.0-36.0)
[2021-09-25 17:57] LABS: Monocytes # 0.9 K/mcL (0.0-1.3); Neutrophils # 8.5 K/mcL (1.6-8.9)
[2021-09-25] MEDS ORDERED: 0.9 % Sodium Chloride 250 ML ONE (19:18)
[2021-09-25] MEDS ORDERED: Calcium Gluconate 1,000 MG/10 ML VIAL IVP STA (19:43)
[2021-09-25] MEDS ORDERED: Naloxone 0.4 MG/ML INJ IVP PRN (20:28)
[2021-09-25] MEDS ORDERED: Insulin Human Regular 10 UNIT in 0.9 % Sodium Chloride 10 ML IV ONE (21:47)
[2021-09-25] MEDS ORDERED: *HR* Dextrose 50 % in Water (Syg) 50 ML SYRINGE IVP ONE (21:47)
[2021-09-25] MEDS ORDERED: Saline Nasal Spray 44 ML BOTTLE NS PRN (21:48)
[2021-09-25] MEDS ORDERED: Saliva Stimulant 44.3ml BOTTLE PO PRN (21:48)
[2021-09-25] MEDS: Ipratropium/Albuterol Neb 3 ML IH SCH (23:31)
[2021-09-25] MEDS: Budesonide/Formoterol 160/4.5 1 PUFF INH IH SCH (23:31)
[2021-09-25] MEDS: Acetylcysteine 10% 2 ML INHSOL IH SCH (23:31)
[2021-09-26 01:35] LABS: INR 1.5; Prothrombin Time 16.4 Seconds (9.4-12.1)
[2021-09-26 01:37] LABS: Activated Partial Thrombo Time 33.1 Seconds (26.0-36.0)
[2021-09-26 01:44] LABS: Calcium 9.4 mg/dL (8.6-10.3); Magnesium 2.1 mg/dL (1.6-2.6); Phosphorous 4.8 mg/dL (2.7-4.5); Potassium 6.2 mEq/L (3.5-5.1)
[2021-09-26 01:47] LABS: % Iron Saturation 8 % (15-50); Bilirubin,Indirect 0.3 mg/dL (0.0-1.0); Bilirubin,Total 0.3 mg/dL (0.3-1.0); Iron 17 mcg/dL (50-170); Transferrin 155 mg/dL (203-362)
[2021-09-26 01:48] LABS: Basophils # 0.1 K/mcL (0.0-0.2); Basophils % 0.5 %; Eosinophils # 0.5 K/mcL (0.0-0.6); Eosinophils % 5.5 %; Hematocrit 20.9 % (35.3-44.9); Hemoglobin 6.1 g/dL (11.5-15.4); Immature Granulocytes % 3.2 % (0-4); Immature Reticulocyte % 37.9 % (11.0-38.0); Lymphocytes % 10.5 %; Mean Corpuscular HGB Conc 29.2 g/dL (31.6-35.5); Mean Corpuscular Hemoglobin 27.5 pg (28.0-33.3); Mean Corpuscular Volume 94.1 fL (83.0-100.0); Mean Platelet Volume 9.2 fL (9.4-12.4); Monocytes % 10.5 %; Neutrophils # 6.6 K/mcL (1.6-8.9); Platelet Count 493 K/mcL (140-400); Red Blood Count 2.22 M/mcL (3.82-4.97); Red Cell Distribution Width 17.6 % (11.5-14.5); Retculocyte # 0.07 M/mcL (0.05-0.10); Reticulocyte % 3.1 % (1.6-2.8); Segmented Neutrophils % 69.8 %; White Blood Count 9.5 K/mcL (4.3-11.1)
[2021-09-26 02:05] LABS: Ferritin 1333 ng/mL (10-120)
[2021-09-26 02:15] LABS: Folate > 22.3 ng/mL (3.0-16.0); Vitamin B12 > 1500 pg/mL (250-1100)
[2021-09-26] MEDS ORDERED: D5% in Water 1,000 ML IVC PRN (03:38)
[2021-09-26] MEDS ORDERED: Dextrose 4 GM Chewable Tablets PO PRN (03:38)
[2021-09-26] MEDS: Ipratropium/Albuterol Neb 3 ML IH SCH ×6 (03:51→23:21)
[2021-09-26] MEDS: Acetylcysteine 10% 2 ML INHSOL IH SCH ×4 (03:51→20:03)
[2021-09-26] MEDS ORDERED: Iron Sucrose Complex 400 MG in 0.9 % Sodium Chloride 250 ML IVPB ONE (04:00)
[2021-09-26 04:30] LABS: Estimated Average Glucose 157 mg/dl; Hemoglobin A1C 7.1 %
[2021-09-26] MEDS: Metoclopramide 10 MG/10 ML UD.LIQ GTUBE SCH ×4 (06:00→23:38)
[2021-09-26] MEDS: Budesonide/Formoterol 160/4.5 1 PUFF INH IH SCH ×2 (07:26→20:02)
[2021-09-26 08:41] LABS: Hematocrit 23.6 % (35.3-44.9)
[2021-09-26] MEDS ORDERED: *HR* Heparin 10,000 UNIT/10 ML VIAL IV PRN (08:58)
[2021-09-26] MEDS ORDERED: 0.9 % Sodium Chloride 250 ML IVC PRN (08:58)
[2021-09-26] MEDS ORDERED: Albumin 25% 25gram/100mL 25 GM/100 ML IV.SOLN IVPB PRN (08:58)
[2021-09-26] MEDS ORDERED: 0.9 % Sodium Chloride 1,000 ML PRIME SCH (09:00)
[2021-09-26] MEDS: Apixaban 5 MG TABLET GTUBE SCH ×2 (09:28→19:53)
[2021-09-26] MEDS: Renal Vitamin 1 CAP CAPSULE PO SCH (09:28)
[2021-09-26] MEDS: Insulin LISPRO 300 UNITS/3 ML VIAL SUBQ SCH ×6 (09:30→18:09)
[2021-09-26] MEDS: Artificial Tears SOLN 15 ML BOTTLE BOTH EYES SCH ×2 (09:32→19:53)
[2021-09-26 09:48] LABS: Hepatitis B Surface Antibody 3.19 mIU/mL
[2021-09-26 09:59] LABS: Hepatitis B Surface Antigen Nonreactive (Nonreactive)
[2021-09-26] MEDS: SODIUM ZIRCONIUM CYCLOSILICATE 5 GM POWD.PACK PO SCH ×3 (10:25→19:54)
[2021-09-26] MEDS: Insulin DETEMIR 100 UNIT/ML X5UNITS SUBQ SCH ×2 (10:30→19:57)
[2021-09-26] MEDS: Acetaminophen 325 MG TABLET PO PRN (12:30)
[2021-09-26] MEDS: Mirtazapine 15 MG TABLET GTUBE SCH (19:53)
[2021-09-26] MEDS: *HR* OxyCODONE Immed Rel 5 MG TABLET GTUBE PRN (21:19)
[2021-09-27] MEDS: *HR* OxyCODONE Immed Rel 5 MG TABLET GTUBE PRN ×2 (01:37→20:46)
[2021-09-27 02:34] LABS: Basophils % 0.4 %; Eosinophils # 0.4 K/mcL (0.0-0.6); Eosinophils % 4.3 %; Hematocrit 22.5 % (35.3-44.9); Hemoglobin 6.8 g/dL (11.5-15.4); Immature Granulocytes % 3.6 % (0-4); Lymphocytes # 0.9 K/mcL (0.6-4.6); Lymphocytes % 10.6 %; Mean Corpuscular HGB Conc 30.2 g/dL (31.6-35.5); Mean Corpuscular Hemoglobin 27.6 pg (28.0-33.3); Mean Corpuscular Volume 91.5 fL (83.0-100.0); Monocytes # 0.7 K/mcL (0.0-1.3); Monocytes % 8.1 %; Neutrophils # 6.2 K/mcL (1.6-8.9); Platelet Count 434 K/mcL (140-400); Red Blood Count 2.46 M/mcL (3.82-4.97); Red Cell Distribution Width 19.5 % (11.5-14.5); White Blood Count 8.4 K/mcL (4.3-11.1)
[2021-09-27 02:48] LABS: Calcium 9.1 mg/dL (8.6-10.3); Potassium 4.6 mEq/L (3.5-5.1)
[2021-09-27] MEDS: Acetylcysteine 10% 2 ML INHSOL IH SCH ×4 (03:28→20:20)
[2021-09-27] MEDS: Ipratropium/Albuterol Neb 3 ML IH SCH ×5 (03:28→20:20)
[2021-09-27] MEDS: Metoclopramide 10 MG/10 ML UD.LIQ GTUBE SCH ×4 (05:19→22:49)
[2021-09-27] MEDS: Acetaminophen 325 MG TABLET PO PRN (05:19)
[2021-09-27] MEDS: Budesonide/Formoterol 160/4.5 1 PUFF INH IH SCH ×2 (07:30→20:20)
[2021-09-27] MEDS ORDERED: 0.9 % Sodium Chloride 250 ML IVC PRN (07:53)
[2021-09-27] MEDS ORDERED: *HR* Heparin 10,000 UNIT/10 ML VIAL IV PRN (07:53)
[2021-09-27] MEDS ORDERED: 0.9 % Sodium Chloride 1,000 ML PRIME SCH (08:00)
[2021-09-27] MEDS: Insulin DETEMIR 100 UNIT/ML X5UNITS SUBQ SCH ×2 (08:44→20:46)
[2021-09-27] MEDS: Insulin LISPRO 300 UNITS/3 ML VIAL SUBQ SCH ×6 (08:46→17:30)
[2021-09-27] MEDS: Artificial Tears SOLN 15 ML BOTTLE BOTH EYES SCH ×2 (08:50→20:46)
[2021-09-27] MEDS: Renal Vitamin 1 CAP CAPSULE PO SCH (08:50)
[2021-09-27] MEDS ORDERED: Isovue-370 500 ML BOTTLE IVP ONE (10:18)
[2021-09-27 17:07] LABS: Hematocrit 26.1 % (35.3-44.9); Hemoglobin 7.7 g/dL (11.5-15.4); Mean Corpuscular HGB Conc 29.5 g/dL (31.6-35.5); Mean Corpuscular Hemoglobin 27.6 pg (28.0-33.3); Mean Corpuscular Volume 93.5 fL (83.0-100.0); Mean Platelet Volume 9.1 fL (9.4-12.4); Platelet Count 406 K/mcL (140-400); Red Blood Count 2.79 M/mcL (3.82-4.97); Red Cell Distribution Width 19.2 % (11.5-14.5)
[2021-09-27] MEDS: Melatonin 3 MG TABLET PO PRN (20:46)
[2021-09-27] MEDS: Mirtazapine 15 MG TABLET GTUBE SCH (20:46)
[2021-09-27] MEDS ORDERED: NON-FORMULARY MEDICATION 1 EACH EACH (Atorvastatin Calcium 80 MG Tablet) GTUBE SCH (21:00)
[2021-09-28] MEDS: Ipratropium/Albuterol Neb 3 ML IH SCH ×7 (00:14→23:14)
[2021-09-28] MEDS: Ondansetron 4 MG/2 ML VIAL IVP PRN (01:26)
[2021-09-28] MEDS: Acetylcysteine 10% 2 ML INHSOL IH SCH ×4 (04:02→20:25)
[2021-09-28 04:11] LABS: Hematocrit 26.4 % (35.3-44.9); Hemoglobin 7.9 g/dL (11.5-15.4); Mean Corpuscular HGB Conc 29.9 g/dL (31.6-35.5); Mean Corpuscular Hemoglobin 27.6 pg (28.0-33.3); Mean Corpuscular Volume 92.3 fL (83.0-100.0); Mean Platelet Volume 9.2 fL (9.4-12.4); Platelet Count 461 K/mcL (140-400); Red Blood Count 2.86 M/mcL (3.82-4.97); Red Cell Distribution Width 19.3 % (11.5-14.5); White Blood Count 10.1 K/mcL (4.3-11.1)
[2021-09-28 04:17] LABS: INR 1.5; Prothrombin Time 16.9 Seconds (9.4-12.1)
[2021-09-28 04:31] LABS: BUN/Creatinine Ratio 12 (6-26); Blood Urea Nitrogen 35 mg/dL (6-20); Calcium 9.3 mg/dL (8.6-10.3); Carbon Dioxide 29 mEq/L (23-29); Chloride 95 mEq/L (98-107); Glucose 188 mg/dL (70-105); Lactate Dehydrogenase 235 Units/L (140-271); Osmolality,Calculated 295 (280-300); Potassium 4.1 mEq/L (3.5-5.1); Sodium 136 mEq/L (136-145); Total Protein 6.6 g/dL (6.4-8.9); eGFR For African Americans 21 (> 60); eGFR For Non-African Americans 17 (> 60)
[2021-09-28] MEDS: Metoclopramide 10 MG/10 ML UD.LIQ GTUBE SCH ×3 (06:23→18:44)
[2021-09-28] MEDS: Budesonide/Formoterol 160/4.5 1 PUFF INH IH SCH ×2 (07:44→20:25)
[2021-09-28] MEDS: Insulin DETEMIR 100 UNIT/ML X5UNITS SUBQ SCH ×2 (10:38→21:00)
[2021-09-28] MEDS: Insulin LISPRO 300 UNITS/3 ML VIAL SUBQ SCH ×6 (10:39→18:44)
[2021-09-28] MEDS: Artificial Tears SOLN 15 ML BOTTLE BOTH EYES SCH ×2 (10:40→21:00)
[2021-09-28] MEDS: Renal Vitamin 1 CAP CAPSULE PO SCH ×2 (10:40→11:02)
[2021-09-28 15:12] LABS: RBC,Pleural Fluid 213000 RBC/mcL
[2021-09-28 15:35] LABS: Total Protein,Pleural Fluid 3.9 g/dL
[2021-09-28 16:35] LABS: Appearance of Pleural Fl Bloody (Clear)
[2021-09-28 17:08] LABS: Basophils,Pleural Fluid 0 %
[2021-09-28] MEDS ORDERED: *HR* FentaNYL (PF) 100 MCG/2 ML VIAL ONE (17:55)
[2021-09-28] MEDS ORDERED: *HR* Midazolam HCl 5 MG/5 ML VIAL IVP ONE ×2 (17:55→18:01)
[2021-09-28] MEDS ORDERED: *HR* FentaNYL (PF) 100 MCG/2 ML VIAL IVP ONE (18:01)
[2021-09-28] MEDS: *HR* Dextrose 50 % in Water (Syg) 50 ML SYRINGE IVP PRN (18:40)
[2021-09-28] MEDS: Mirtazapine 15 MG TABLET GTUBE SCH (21:00)
[2021-09-29] MEDS: Metoclopramide 10 MG/10 ML UD.LIQ GTUBE SCH ×4 (00:43→18:37)
[2021-09-29] MEDS: *HR* Dextrose 50 % in Water (Syg) 50 ML SYRINGE IVP PRN (01:02)
[2021-09-29] MEDS: Acetaminophen 325 MG TABLET PO PRN ×2 (02:10→15:10)
[2021-09-29] MEDS: Ipratropium/Albuterol Neb 3 ML IH SCH ×6 (03:56→23:45)
[2021-09-29] MEDS: Acetylcysteine 10% 2 ML INHSOL IH SCH ×4 (03:56→20:02)
[2021-09-29 05:50] LABS: Hemoglobin 7.3 g/dL (11.5-15.4); Mean Corpuscular HGB Conc 29.2 g/dL (31.6-35.5); Mean Corpuscular Hemoglobin 27.8 pg (28.0-33.3); Mean Corpuscular Volume 95.1 fL (83.0-100.0); Mean Platelet Volume 9.1 fL (9.4-12.4); Platelet Count 397 K/mcL (140-400); Red Blood Count 2.63 M/mcL (3.82-4.97); Red Cell Distribution Width 19.5 % (11.5-14.5); White Blood Count 12.5 K/mcL (4.3-11.1)
[2021-09-29 06:14] LABS: Calcium 9.2 mg/dL (8.6-10.3); Potassium 4.6 mEq/L (3.5-5.1)
[2021-09-29] MEDS ORDERED: 0.9 % Sodium Chloride 250 ML IVC PRN (07:04)
[2021-09-29] MEDS: Budesonide/Formoterol 160/4.5 1 PUFF INH IH SCH ×2 (07:23→20:02)
[2021-09-29] MEDS: Insulin LISPRO 300 UNITS/3 ML VIAL SUBQ SCH ×6 (07:56→16:49)
[2021-09-29] MEDS: Renal Vitamin 1 CAP CAPSULE PO SCH (07:57)
[2021-09-29] MEDS: Insulin DETEMIR 100 UNIT/ML X5UNITS SUBQ SCH ×2 (07:58→20:03)
[2021-09-29] MEDS: Artificial Tears SOLN 15 ML BOTTLE BOTH EYES SCH ×2 (07:58→19:59)
[2021-09-29] MEDS: Aspirin 81 MG TAB.CHEW PO SCH (08:14)
[2021-09-29] MEDS ORDERED: *HR* Heparin 10,000 UNIT/10 ML VIAL IV PRN (08:33)
[2021-09-29] MEDS: *HR* OxyCODONE Immed Rel 5 MG TABLET GTUBE PRN ×2 (13:38→20:20)
[2021-09-29] MEDS: Ondansetron 4 MG/2 ML VIAL IVP PRN (15:10)
[2021-09-29] MEDS: Mirtazapine 15 MG TABLET GTUBE SCH (19:58)
[2021-09-30] MEDS: Metoclopramide 10 MG/10 ML UD.LIQ GTUBE SCH ×4 (00:22→17:14)
[2021-09-30] MEDS: *HR* OxyCODONE Immed Rel 5 MG TABLET GTUBE PRN ×4 (00:23→20:57)
[2021-09-30] MEDS: Acetylcysteine 10% 2 ML INHSOL IH SCH ×4 (03:38→20:11)
[2021-09-30] MEDS: Ipratropium/Albuterol Neb 3 ML IH SCH ×5 (03:38→20:11)
[2021-09-30] MEDS: Budesonide/Formoterol 160/4.5 1 PUFF INH IH SCH ×2 (07:43→20:19)
[2021-09-30] MEDS: Insulin LISPRO 300 UNITS/3 ML VIAL SUBQ SCH ×6 (09:33→17:13)
[2021-09-30] MEDS: Artificial Tears SOLN 15 ML BOTTLE BOTH EYES SCH ×2 (09:34→20:57)
[2021-09-30] MEDS: Insulin DETEMIR 100 UNIT/ML X5UNITS SUBQ SCH ×2 (09:34→21:01)
[2021-09-30] MEDS: Aspirin 81 MG TAB.CHEW PO SCH (09:35)
[2021-09-30] MEDS: Renal Vitamin 1 CAP CAPSULE PO SCH (09:35)
[2021-09-30] MEDS: Cefepime HCl 2,000 MG in 0.9 % Sodium Chloride 10 ML IVP SCH ×2 (09:42→16:55)
[2021-09-30] MEDS: Mirtazapine 15 MG TABLET GTUBE SCH (20:57)
[2021-09-30 22:33] LABS: Hematocrit 24.5 % (35.3-44.9); Hemoglobin 7.3 g/dL (11.5-15.4); Mean Corpuscular HGB Conc 29.8 g/dL (31.6-35.5); Mean Corpuscular Hemoglobin 28.5 pg (28.0-33.3); Mean Corpuscular Volume 95.7 fL (83.0-100.0); Mean Platelet Volume 8.8 fL (9.4-12.4); Platelet Count 318 K/mcL (140-400); Red Blood Count 2.56 M/mcL (3.82-4.97); Red Cell Distribution Width 19.1 % (11.5-14.5)
[2021-09-30 22:49] LABS: Potassium 4.8 mEq/L (3.5-5.1)
[2021-10-01] MEDS: Metoclopramide 10 MG/10 ML UD.LIQ GTUBE SCH ×4 (01:30→18:28)
[2021-10-01] MEDS: Cefepime HCl 2,000 MG in 0.9 % Sodium Chloride 10 ML IVP SCH (01:32)
[2021-10-01] MEDS: *HR* OxyCODONE Immed Rel 5 MG TABLET GTUBE PRN ×2 (02:26→15:26)
[2021-10-01] MEDS: Ipratropium/Albuterol Neb 3 ML IH SCH ×6 (03:55→19:52)
[2021-10-01] MEDS: Acetylcysteine 10% 2 ML INHSOL IH SCH ×4 (03:55→19:52)
[2021-10-01] MEDS ORDERED: 0.9 % Sodium Chloride 250 ML IVC PRN (06:48)
[2021-10-01] MEDS: Budesonide/Formoterol 160/4.5 1 PUFF INH IH SCH ×2 (07:22→19:53)
[2021-10-01] MEDS: Acetaminophen 325 MG TABLET PO PRN ×2 (08:20→20:08)
[2021-10-01] MEDS: Aspirin 81 MG TAB.CHEW PO SCH (08:22)
[2021-10-01] MEDS: Insulin LISPRO 300 UNITS/3 ML VIAL SUBQ SCH ×6 (08:23→18:27)
[2021-10-01] MEDS: Renal Vitamin 1 CAP CAPSULE PO SCH (08:23)
[2021-10-01] MEDS: Artificial Tears SOLN 15 ML BOTTLE BOTH EYES SCH ×2 (08:23→20:09)
[2021-10-01] MEDS: Insulin DETEMIR 100 UNIT/ML X5UNITS SUBQ SCH ×2 (08:24→20:12)
[2021-10-01] MEDS ORDERED: *HR* Heparin 10,000 UNIT/10 ML VIAL IV PRN (09:01)
[2021-10-01 12:31] LABS: Cholesterol,Body Fluid 59 mg/dL; Fluid Source for Cholesterol PLEURAL FLUID
[2021-10-01 13:48] LABS: Basophils # 0.1 K/mcL (0.0-0.2); Basophils % 0.3 %; Eosinophils # 0.7 K/mcL (0.0-0.6); Eosinophils % 3.9 %; Hematocrit 24.6 % (35.3-44.9); Hemoglobin 7.2 g/dL (11.5-15.4); Immature Granulocytes % 2.6 % (0-4); Lymphocytes # 0.9 K/mcL (0.6-4.6); Lymphocytes % 5.6 %; Mean Corpuscular HGB Conc 29.3 g/dL (31.6-35.5); Mean Corpuscular Hemoglobin 28.5 pg (28.0-33.3); Mean Corpuscular Volume 97.2 fL (83.0-100.0); Monocytes # 1.4 K/mcL (0.0-1.3); Monocytes % 8.3 %; Neutrophils # 13.3 K/mcL (1.6-8.9); Platelet Count 296 K/mcL (140-400); Red Blood Count 2.53 M/mcL (3.82-4.97); Red Cell Distribution Width 19.2 % (11.5-14.5); Segmented Neutrophils % 79.3 %; White Blood Count 16.7 K/mcL (4.3-11.1)
[2021-10-01] MEDS: Ondansetron 4 MG/2 ML VIAL IVP PRN (15:05)
[2021-10-01] MEDS ORDERED: Fluconazole 150 MG TABLET PO ONE (16:04)
[2021-10-01] MEDS: Melatonin 3 MG TABLET PO PRN (20:11)
[2021-10-01] MEDS: Mirtazapine 15 MG TABLET GTUBE SCH (20:11)
[2021-10-02] MEDS: Ipratropium/Albuterol Neb 3 ML IH SCH ×7 (00:10→23:03)
[2021-10-02] MEDS: Metoclopramide 10 MG/10 ML UD.LIQ GTUBE SCH ×5 (00:52→23:35)
[2021-10-02 03:27] LABS: Hematocrit 24.5 % (35.3-44.9); Hemoglobin 7.3 g/dL (11.5-15.4); Mean Corpuscular HGB Conc 29.8 g/dL (31.6-35.5); Mean Corpuscular Volume 93.9 fL (83.0-100.0); Platelet Count 275 K/mcL (140-400); Red Blood Count 2.61 M/mcL (3.82-4.97); White Blood Count 18.8 K/mcL (4.3-11.1)
[2021-10-02 03:36] LABS: Potassium 3.8 mEq/L (3.5-5.1)
[2021-10-02] MEDS: Acetylcysteine 10% 2 ML INHSOL IH SCH ×4 (03:58→20:05)
[2021-10-02] MEDS ORDERED: Fluconazole 150 MG TABLET PO ONE (06:15)
[2021-10-02] MEDS: Budesonide/Formoterol 160/4.5 1 PUFF INH IH SCH ×2 (07:40→20:05)
[2021-10-02] MEDS: Insulin LISPRO 300 UNITS/3 ML VIAL SUBQ SCH ×6 (09:26→16:36)
[2021-10-02] MEDS: Insulin DETEMIR 100 UNIT/ML X5UNITS SUBQ SCH ×2 (09:27→19:54)
[2021-10-02] MEDS: Cefepime HCl 1,000 MG in 0.9 % Sodium Chloride 10 ML IVP SCH (09:27)
[2021-10-02] MEDS: Aspirin 81 MG TAB.CHEW PO SCH (09:28)
[2021-10-02] MEDS: Renal Vitamin 1 CAP CAPSULE PO SCH (09:28)
[2021-10-02] MEDS: Artificial Tears SOLN 15 ML BOTTLE BOTH EYES SCH ×2 (09:28→19:51)
[2021-10-02] MEDS ORDERED: Vancomycin 1,500 MG/265 ML IV.SOLN IVPB ONE (13:00)
[2021-10-02 16:28] LABS: Bilirubin,Urine Negative (Negative); Blood,Urine Large (Negative); Clarity,Urine Turbid (Clear); Glucose,Urine (UA) Normal (Normal); Ketones,Urine 15 mg/dL (Negative); Leukocyte Esterase,Urine Small (Negative); Nitrite,Urine Negative (Negative); Protein,Urine >=300 mg/dL (Neg-Trace); Specific Gravity,Urine >= 1.030 (1.010-1.025); Urobilinogen,Urine Normal (Normal)
[2021-10-02 16:30] LABS: Color,Urine Light-Brown (Yellow)
[2021-10-02 16:35] LABS: RBC,Urine TNTC per hpf (0-3)
[2021-10-02 16:37] LABS: Squamous Epithelial Cell,Urine Present per hpf (None-Few); WBC,Urine Present per hpf (0-3)
[2021-10-02 16:39] LABS: Bacteria,Urine Many per hpf (None-Few); Budding Yeast,Urine Present per hpf (None Seen); Calcium Oxalate Crystals,Urine Present per hpf; Hyaline Casts,Urine None Seen per lpf (None Seen); Mucus,Urine Present per lpf (None-Few); Uric Acid Crystals,Urine Present per hpf
[2021-10-02] MEDS: Mirtazapine 15 MG TABLET GTUBE SCH (19:51)
[2021-10-02] MEDS: *HR* OxyCODONE Immed Rel 5 MG TABLET GTUBE PRN (21:13)
[2021-10-03] MEDS: Acetylcysteine 10% 2 ML INHSOL IH SCH ×2 (03:36→08:05)
[2021-10-03] MEDS: Ipratropium/Albuterol Neb 3 ML IH SCH ×6 (03:37→23:30)
[2021-10-03] MEDS ORDERED: Furosemide 20 MG/2 ML VIAL IVP ONE (05:45)
[2021-10-03] MEDS: Metoclopramide 10 MG/10 ML UD.LIQ GTUBE SCH ×3 (06:04→17:24)
[2021-10-03 07:13] LABS: Hematocrit 23.8 % (35.3-44.9); Mean Corpuscular HGB Conc 29.4 g/dL (31.6-35.5); Mean Corpuscular Hemoglobin 28.2 pg (28.0-33.3); Mean Platelet Volume 8.9 fL (9.4-12.4); Platelet Count 233 K/mcL (140-400); Red Blood Count 2.48 M/mcL (3.82-4.97); Red Cell Distribution Width 19.2 % (11.5-14.5); White Blood Count 26.7 K/mcL (4.3-11.1)
[2021-10-03 07:33] LABS: Calcium 9.2 mg/dL (8.6-10.3); Potassium 4.4 mEq/L (3.5-5.1)
[2021-10-03] MEDS: Cefepime HCl 1,000 MG in 0.9 % Sodium Chloride 10 ML IVP SCH (07:54)
[2021-10-03] MEDS: Insulin LISPRO 300 UNITS/3 ML VIAL SUBQ SCH ×6 (08:01→17:24)
[2021-10-03] MEDS: Aspirin 81 MG TAB.CHEW PO SCH (08:01)
[2021-10-03] MEDS: Renal Vitamin 1 CAP CAPSULE PO SCH (08:01)
[2021-10-03] MEDS: Insulin DETEMIR 100 UNIT/ML X5UNITS SUBQ SCH ×2 (08:02→21:22)
[2021-10-03] MEDS: Artificial Tears SOLN 15 ML BOTTLE BOTH EYES SCH ×2 (08:02→21:22)
[2021-10-03] MEDS: Budesonide/Formoterol 160/4.5 1 PUFF INH IH SCH ×2 (08:05→19:55)
[2021-10-03] MEDS: *HR* Dextrose 50 % in Water (Syg) 50 ML SYRINGE IVP PRN ×2 (08:20→08:40)
[2021-10-03 11:55] LABS: ABG Base Excess 0 mEq/L (-2 to 3); ABG HCO3 23 mEq/L (21-27); ABG Oxygen Saturation 98 % (95-98); ABG PCO2 31 mmHg (35-45); ABG PH 7.48 pH Units (7.32-7.45); ABG PO2 101 mmHg (85-104); ABG TCO2 24 mEq/L (20-26); Blood Gas Modality ASSIST CONTROL; Blood Gas VT 410 cc
[2021-10-03] MEDS: *HR* OxyCODONE Immed Rel 5 MG TABLET GTUBE PRN (14:14)
[2021-10-03] MEDS: MetroNIDAZOLE 500 MG/100 ML 500 MG/100 ML BAG IVPB SCH (17:48)
[2021-10-03] MEDS: Ondansetron 4 MG/2 ML VIAL IVP PRN (17:49)
[2021-10-03] MEDS: Mirtazapine 15 MG TABLET GTUBE SCH (21:23)
[2021-10-03] MEDS: Acetaminophen 325 MG TABLET PO PRN (21:26)
[2021-10-04] MEDS: MetroNIDAZOLE 500 MG/100 ML 500 MG/100 ML BAG IVPB SCH ×2 (00:20→08:25)
[2021-10-04] MEDS: Metoclopramide 10 MG/10 ML UD.LIQ GTUBE SCH ×4 (00:21→18:26)
[2021-10-04] MEDS: Ipratropium/Albuterol Neb 3 ML IH SCH ×6 (04:13→23:13)
[2021-10-04 06:25] LABS: Hematocrit 22.4 % (35.3-44.9); Hemoglobin 6.5 g/dL (11.5-15.4); Mean Corpuscular Hemoglobin 27.7 pg (28.0-33.3); Mean Corpuscular Volume 95.3 fL (83.0-100.0); Red Blood Count 2.35 M/mcL (3.82-4.97)
[2021-10-04 06:26] LABS: Mean Platelet Volume 9.5 fL (9.4-12.4); Platelet Count 223 K/mcL (140-400); Red Cell Distribution Width 19.2 % (11.5-14.5)
[2021-10-04 06:29] LABS: White Blood Count 31.1 K/mcL (4.3-11.1)
[2021-10-04 06:47] LABS: Calcium 8.7 mg/dL (8.6-10.3); Potassium 4.5 mEq/L (3.5-5.1)
[2021-10-04] MEDS: *HR* Dextrose 50 % in Water (Syg) 50 ML SYRINGE IVP PRN (06:52)
[2021-10-04] MEDS: Budesonide/Formoterol 160/4.5 1 PUFF INH IH SCH ×2 (07:23→19:41)
[2021-10-04] MEDS: Insulin DETEMIR 100 UNIT/ML X5UNITS SUBQ SCH ×2 (08:18→19:54)
[2021-10-04] MEDS: Insulin LISPRO 300 UNITS/3 ML VIAL SUBQ SCH ×6 (08:18→18:24)
[2021-10-04] MEDS: Cefepime HCl 1,000 MG in 0.9 % Sodium Chloride 10 ML IVP SCH (08:24)
[2021-10-04] MEDS: Renal Vitamin 1 CAP CAPSULE PO SCH (08:24)
[2021-10-04] MEDS: Aspirin 81 MG TAB.CHEW PO SCH (08:25)
[2021-10-04] MEDS ORDERED: 0.9 % Sodium Chloride 500 ML IVC ONE (09:22)
[2021-10-04] MEDS ORDERED: 0.9 % Sodium Chloride 250 ML IVC PRN (09:24)
[2021-10-04] MEDS ORDERED: *HR* Heparin 10,000 UNIT/10 ML VIAL IV PRN (09:24)
[2021-10-04] MEDS: Acetaminophen 325 MG TABLET PO PRN (09:30)
[2021-10-04] MEDS ORDERED: 0.9 % Sodium Chloride 1,000 ML PRIME SCH (09:30)
[2021-10-04] MEDS: Artificial Tears SOLN 15 ML BOTTLE BOTH EYES SCH ×2 (11:07→19:53)
[2021-10-04] MEDS: Dextrose 4 GM Chewable Tablets PO PRN ×2 (11:56→13:01)
[2021-10-04 13:02] LABS: % Iron Saturation 17 % (15-50); Iron 27 mcg/dL (50-170); Transferrin 112 mg/dL (203-362)
[2021-10-04] MEDS ORDERED: Ringers Solution, Lactated 1,000 ML IVC ONE (13:22)
[2021-10-04] MEDS ORDERED: 0.9 % Sodium Chloride 1,000 ML IVC ONE (13:23)
[2021-10-04] MEDS ORDERED: Nitroglycerin 0.4 MG TAB.SUBL SL PRN (13:43)
[2021-10-04] MEDS ORDERED: NON-FORMULARY MEDICATION 1 EACH EACH (Midodrine Hcl 10 MG Tablet) GTUBE SCH (14:00)
[2021-10-04 16:24] LABS: ABG Base Excess -1 mEq/L (-2 to 3); ABG HCO3 23 mEq/L (21-27); ABG Oxygen Saturation 96 % (95-98); ABG PCO2 34 mmHg (35-45); ABG PH 7.43 pH Units (7.32-7.45); ABG PO2 81 mmHg (85-104); ABG TCO2 24 mEq/L (20-26); Blood Gas VT 410 cc
[2021-10-04 18:08] LABS: Bilirubin,Urine Negative (Negative); Blood,Urine Large (Negative); Clarity,Urine Ex.Turbid (Clear); Color,Urine Red (Yellow); Glucose,Urine (UA) Normal (Normal); Ketones,Urine Negative (Negative); Leukocyte Esterase,Urine Large (Negative); Nitrite,Urine Negative (Negative); PH,Urine 7.5 pH Units (5.0-8.0); Protein,Urine 200 mg/dL (Neg-Trace); Specific Gravity,Urine 1.017 (1.010-1.025); Urobilinogen,Urine Normal (Normal)
[2021-10-04] MEDS: Mirtazapine 15 MG TABLET GTUBE SCH (19:55)
[2021-10-05] MEDS: Metoclopramide 10 MG/10 ML UD.LIQ GTUBE SCH ×4 (00:50→18:13)
[2021-10-05] MEDS: Ipratropium/Albuterol Neb 3 ML IH SCH ×5 (03:53→20:32)
[2021-10-05 05:50] LABS: Hemoglobin 7.9 g/dL (11.5-15.4); Red Cell Distribution Width 18.6 % (11.5-14.5)
[2021-10-05 05:51] LABS: Hematocrit 26.5 % (35.3-44.9); Mean Corpuscular HGB Conc 29.8 g/dL (31.6-35.5); Mean Corpuscular Hemoglobin 28.5 pg (28.0-33.3); Mean Corpuscular Volume 95.7 fL (83.0-100.0); Mean Platelet Volume 9.9 fL (9.4-12.4); Platelet Count 254 K/mcL (140-400); Red Blood Count 2.77 M/mcL (3.82-4.97)
[2021-10-05 05:54] LABS: White Blood Count 43.1 K/mcL (4.3-11.1)
[2021-10-05 06:17] LABS: Calcium 8.5 mg/dL (8.6-10.3); Potassium 5.6 mEq/L (3.5-5.1)
[2021-10-05] MEDS: Budesonide/Formoterol 160/4.5 1 PUFF INH IH SCH ×2 (07:15→20:32)
[2021-10-05] MEDS ORDERED: 0.9 % Sodium Chloride 250 ML IVC PRN (08:00)
[2021-10-05] MEDS: Renal Vitamin 1 CAP CAPSULE PO SCH (08:36)
[2021-10-05] MEDS: Aspirin 81 MG TAB.CHEW PO SCH (08:37)
[2021-10-05] MEDS: Artificial Tears SOLN 15 ML BOTTLE BOTH EYES SCH ×2 (08:38→20:58)
[2021-10-05] MEDS: Insulin LISPRO 300 UNITS/3 ML VIAL SUBQ SCH ×6 (08:38→17:54)
[2021-10-05] MEDS: Insulin DETEMIR 100 UNIT/ML X5UNITS SUBQ SCH ×2 (08:39→21:06)
[2021-10-05] MEDS ORDERED: Mirtazapine 15 MG TABLET GTUBE SCH (09:00)
[2021-10-05] MEDS ORDERED: Vancomycin 500 MG in 0.9 % Sodium Chloride Mini Bag 100 ML IVPB ONE (18:00)
[2021-10-05] MEDS: Mirtazapine 15 MG TABLET GTUBE SCH (20:58)
[2021-10-05] MEDS: *HR* OxyCODONE Immed Rel 5 MG TABLET GTUBE PRN (21:01)
[2021-10-05] MEDS: SODIUM THIOSULFATE IVPB SCH (21:03)
[2021-10-06] MEDS: Metoclopramide 10 MG/10 ML UD.LIQ GTUBE SCH ×5 (01:13→23:53)
[2021-10-06 01:14] LABS: Hematocrit 26.5 % (35.3-44.9); Mean Corpuscular HGB Conc 30.2 g/dL (31.6-35.5); Mean Corpuscular Hemoglobin 28.1 pg (28.0-33.3); Red Blood Count 2.85 M/mcL (3.82-4.97)
[2021-10-06 01:15] LABS: Mean Platelet Volume 9.8 fL (9.4-12.4); Platelet Count 241 K/mcL (140-400); Red Cell Distribution Width 18.7 % (11.5-14.5)
[2021-10-06 01:20] LABS: White Blood Count 35.1 K/mcL (4.3-11.1)
[2021-10-06] MEDS: *HR* OxyCODONE Immed Rel 5 MG TABLET GTUBE PRN ×3 (01:37→14:29)
[2021-10-06 01:50] LABS: Calcium 8.7 mg/dL (8.6-10.3); Phosphorous 2.7 mg/dL (2.7-4.5); Potassium 3.6 mEq/L (3.5-5.1)
[2021-10-06] MEDS: Ipratropium/Albuterol Neb 3 ML IH SCH ×7 (03:51→23:33)
[2021-10-06] MEDS: Budesonide/Formoterol 160/4.5 1 PUFF INH IH SCH ×2 (07:23→20:19)
[2021-10-06] MEDS: Renal Vitamin 1 CAP CAPSULE PO SCH (08:12)
[2021-10-06] MEDS: Aspirin 81 MG TAB.CHEW PO SCH (08:12)
[2021-10-06] MEDS: Insulin DETEMIR 100 UNIT/ML X5UNITS SUBQ SCH ×2 (08:13→20:42)
[2021-10-06] MEDS: Artificial Tears SOLN 15 ML BOTTLE BOTH EYES SCH ×2 (08:13→20:42)
[2021-10-06] MEDS: Insulin LISPRO 300 UNITS/3 ML VIAL SUBQ SCH ×6 (08:13→16:16)
[2021-10-06 11:39] LABS: INR 1.7; Prothrombin Time 19.2 Seconds (9.4-12.1)
[2021-10-06 11:51] LABS: Lactate Dehydrogenase 224 Units/L (140-271); Total Protein 5.4 g/dL (6.4-8.9)
[2021-10-06] MEDS ORDERED: 0.9 % Sodium Chloride 250 ML IVC PRN (13:19)
[2021-10-06] MEDS ORDERED: *HR* Heparin 10,000 UNIT/10 ML VIAL IV PRN (13:19)
[2021-10-06] MEDS: Ondansetron 4 MG/2 ML VIAL IVP PRN (14:29)
[2021-10-06 14:47] LABS: Total Protein,Pleural Fluid 2.6 g/dL
[2021-10-06 16:26] LABS: RBC,Pleural Fluid 37000 RBC/mcL
[2021-10-06 16:30] LABS: Appearance of Pleural Fl Cloudy (Clear)
[2021-10-06] MEDS: SODIUM THIOSULFATE IVPB SCH ×2 (17:10→20:42)
[2021-10-06 20:07] LABS: Basophils,Pleural Fluid 0 %
[2021-10-06] MEDS: Mirtazapine 15 MG TABLET GTUBE SCH (20:42)
[2021-10-07] MEDS: Ipratropium/Albuterol Neb 3 ML IH SCH ×6 (04:09→23:01)
[2021-10-07] MEDS: Metoclopramide 10 MG/10 ML UD.LIQ GTUBE SCH ×4 (05:20→23:52)
[2021-10-07 06:25] LABS: Mean Corpuscular Hemoglobin 27.7 pg (28.0-33.3); Mean Platelet Volume 11.3 fL (9.4-12.4)
[2021-10-07 06:26] LABS: Hemoglobin 7.6 g/dL (11.5-15.4); Mean Corpuscular HGB Conc 28.1 g/dL (31.6-35.5); Mean Corpuscular Volume 98.5 fL (83.0-100.0); Platelet Count 229 K/mcL (140-400); Red Blood Count 2.74 M/mcL (3.82-4.97); Red Cell Distribution Width 19.4 % (11.5-14.5); White Blood Count 22.8 K/mcL (4.3-11.1)
[2021-10-07 06:40] LABS: Calcium 8.1 mg/dL (8.6-10.3); Magnesium 1.7 mg/dL (1.6-2.6); Phosphorous 1.9 mg/dL (2.7-4.5); Potassium 3.9 mEq/L (3.5-5.1)
[2021-10-07] MEDS: Budesonide/Formoterol 160/4.5 1 PUFF INH IH SCH ×2 (07:36→19:42)
[2021-10-07] MEDS: Aspirin 81 MG TAB.CHEW PO SCH (07:43)
[2021-10-07] MEDS: Renal Vitamin 1 CAP CAPSULE PO SCH (07:44)
[2021-10-07] MEDS: Insulin LISPRO 300 UNITS/3 ML VIAL SUBQ SCH ×6 (07:44→19:20)
[2021-10-07] MEDS: Artificial Tears SOLN 15 ML BOTTLE BOTH EYES SCH ×2 (07:44→19:40)
[2021-10-07] MEDS: Insulin DETEMIR 100 UNIT/ML X5UNITS SUBQ SCH ×2 (08:22→21:04)
[2021-10-07] MEDS: Mirtazapine 15 MG TABLET GTUBE SCH (19:41)
[2021-10-07] MEDS: *HR* OxyCODONE Immed Rel 5 MG TABLET GTUBE PRN (23:58)
[2021-10-08] MEDS: Ipratropium/Albuterol Neb 3 ML IH SCH ×5 (04:13→21:33)
[2021-10-08] MEDS: Metoclopramide 10 MG/10 ML UD.LIQ GTUBE SCH ×2 (05:33→12:13)
[2021-10-08 05:59] LABS: Calcium 8.3 mg/dL (8.6-10.3); Potassium 3.5 mEq/L (3.5-5.1)
[2021-10-08 06:01] LABS: Hematocrit 23.9 % (35.3-44.9); Mean Corpuscular HGB Conc 29.3 g/dL (31.6-35.5); Mean Corpuscular Hemoglobin 27.5 pg (28.0-33.3); Mean Corpuscular Volume 93.7 fL (83.0-100.0); Platelet Count 241 K/mcL (140-400); Red Blood Count 2.55 M/mcL (3.82-4.97); White Blood Count 21.5 K/mcL (4.3-11.1)
[2021-10-08 06:54] VITALS: BP 180/64; TEMP 99.1
[2021-10-08] MEDS: Budesonide/Formoterol 160/4.5 1 PUFF INH IH SCH ×2 (07:52→21:33)
[2021-10-08] MEDS: Insulin LISPRO 300 UNITS/3 ML VIAL SUBQ SCH ×4 (07:58→12:13)
[2021-10-08] MEDS: Renal Vitamin 1 CAP CAPSULE PO SCH (08:01)
[2021-10-08] MEDS: Artificial Tears SOLN 15 ML BOTTLE BOTH EYES SCH (08:01)
[2021-10-08] MEDS: Aspirin 81 MG TAB.CHEW PO SCH (08:01)
[2021-10-08] MEDS: Insulin DETEMIR 100 UNIT/ML X5UNITS SUBQ SCH (08:06)
[2021-10-08 08:22] VITALS: PULSE 91
[2021-10-08] MEDS ORDERED: *HR* Heparin 10,000 UNIT/10 ML VIAL IV PRN (08:36)
[2021-10-08] MEDS ORDERED: 0.9 % Sodium Chloride 250 ML IVC PRN (08:36)
[2021-10-08] MEDS ORDERED: Aspirin 81 MG TAB.CHEW GTUBE SCH (09:00)
[2021-10-08 10:26] VITALS: O2SAT 98
[2021-10-08] MEDS ORDERED: FentaNYL (PF) 1,000 MCG/100 ML IV.SOLN IVC SCH (14:00)
[2021-10-08] MEDS: *HR* LORazepam 2 MG/ML VIAL IVP PRN ×2 (14:48→16:55)
[2021-10-08] MEDS ORDERED: Atropine Sulfate 1% 40 DROP/2 ML BOTTLE SL PRN (17:09)
== END 2021-10-08 17:51 | disposition expired | DRG 130 ==
LOC: SUATTDRO → EMEROOARM 16:12 → 2NNU 16:12 → SUATTDRO 20:23 → 2NNU 21:20 → SUATTDRO 09-27 16:10 → 2ANU 10-08 17:32
PROVIDERS: ADMIT Internal Medicine; ATTEND Family Medicine